=== PATIENT | male | born 1955 | race Caucasian/White ===

== ENCOUNTER 2019-04-05 05:37 | Outpatient (CLI) | payer BC ==
[~2019-04-05] VITALS: Ht 190.5 cm; Wt 99.8 kg
[2019-04-05] MEDS ORDERED: CALC-823 PO (10:29)
[2019-04-05] MEDS ORDERED: PRAV40TA2 PO (10:29)
[2019-04-05] MEDS ORDERED: TAMS0.4C98 PO (10:29)
[2019-04-05] MEDS ORDERED: OMEP40CA36 PO (10:29)
[2019-04-05] MEDS ORDERED: NIVO240V IV (10:29)
[2019-04-05] MEDS ORDERED: METO-395 PO (10:29)
[2019-04-05] MEDS ORDERED: DENO120V SQ (10:29)
== END 2019-04-05 10:34 | disposition home or self-care (01) ==
LOC: PREOP 05:37 → EDUNIT# 09:30 → PREOP 10:34
PROVIDERS: ATTEND Otolaryngology Otolaryngology/Facial Plastic Surgery
DX: Z01.818 Encounter for other preprocedural examination (principal)

== ENCOUNTER 2019-04-08 07:34 | Day surgery (SDC) | payer BC ==
[2019-04-08] VITALS (11 sets, daily range): BP systolic 135–170; BP diastolic 81–97
[~2019-04-08] VITALS: Ht 190.5 cm; Wt 99.8 kg
[~2019-04-08 07:34] MED LIST: CALC-823 PO; DENO120V SQ; METO-395 PO; NIVO240V IV; OMEP40CA36 PO; PRAV40TA2 PO; TAMS0.4C98 PO
[2019-04-08] MEDS ORDERED: AMPICILLIN/SULBACTAM INJECTION 1.5 GM in NS (IVPB) 100 ML IV ONE (07:45)
[2019-04-08] MEDS ORDERED: CATHETER FLUSH 10 ML SYR IV PRN (08:00)
[2019-04-08] MEDS ORDERED: COCAINE HCL 4% 2 ML SYR ONE (08:00)
[2019-04-08] MEDS ORDERED: LIDOCAINE/EPI 1%-1:100,000 (XYLOCAINE) 20ML ONE (08:01)
[2019-04-08] MEDS ORDERED: BSS 15 ML ONE (08:01)
[2019-04-08] MEDS ORDERED: PHENYLEPHRINE 0.5% NASAL SPR (NEO-SYNEPHRINE) REG ONE (08:01)
[2019-04-08] MEDS: LACTATED RINGERS 1,000 ML IV PRN ×2 (08:20→11:46)
--- NOTE | 2019-04-08 08:59 | Progress Note-Pre Operative ---
Pre-Operative Progress Note H&P Reviewed The H&P was reviewed, patient examined and no changes noted. Date Seen by Provider: April 08, 2019 Time Seen by Provider: 08:45 Date H&P Reviewed: April 08, 2019 Time H&P Reviewed: 08:45 Pre-Operative Diagnosis: Bilat Chroinc Sinusitis, DEviated Nasal Septum, Bialt Hyper of Inf turbs OSCAR ACOSTA MD April 08, 2019 08:59
[2019-04-08] MEDS ORDERED: MIDAZOLAM 2 MG/2 ML (VERSED) VIAL ONE (09:16)
[2019-04-08] MEDS ORDERED: fentaNYL INJECTION 100 MCG/2 ML AMP ONE (09:16)
[2019-04-08] MEDS ORDERED: proPOfol 200 MG/20 ML (DIPRIVAN) VIAL IV ONE (09:16)
[2019-04-08] MEDS ORDERED: SEVOFLURANE (ULTANE) 15 ML INHAL SOLN ONE ×7 (09:16→11:22)
[2019-04-08] MEDS ORDERED: LIDOCAINE PF 2% 5 ML (XYLOCAINE) VIAL ONE (09:16)
[2019-04-08] MEDS ORDERED: ROCURONIUM 10 MG/ML 5 ML SYRINGE IV ONE (09:16)
--- OUTSIDE RECORDS SUMMARY | 2019-04-08 09:37 | XMS REPORT | CCD ---
Author Author KESHAWN ANDRADE Organization Unknown Address [address] [facility] [address] [place] [address] Care Team Providers Care Kitchen Steward Name Role Phone CLINTON KELLY, OSCAR Palmers Allergies Allergy Code Allergy Type Reaction Status No Known Drug Allergies 0 Drug allergy Active Active Medications Unknown or Not Available. Problems Unknown or Not Available. Procedures Procedure Code Procedure Type Date Excision of Stomach, Via Natural or Artificial Opening Endoscopic, Diagnos [id number] ICD-10 PCS 08/29/2016 PATHOLOGY ORDER [id number] SNOMED CT 08/29/2016 Results Unknown or Not Available. Function Status Unknown or Not Available. History of Immunizations Unknown or Not Available. Plan of Treatment Unknown or Not Available. Social History Smoking Status Code Start Date End Date Never smoker [id number] Vital Signs Unknown or Not Available. Function Status Unknown or Not Available. Goals Unknown or Not Available. ASSESSMENTS Unknown or Not Available. Health Concerns Section Unknown or Not Available.
--- OUTSIDE RECORDS SUMMARY | 2019-04-08 09:37 | XMS REPORT | CCD ---
Author Author TATA RAUSCH Unknown Address [address] [facility] [address] [place] [address] Care Team Providers Care Floor Tiling Professional Name Role Phone CLINTON KELLY, OSCAR Cote Allergies Allergy Code Allergy Type Reaction Status No Known Drug Allergies 0 Drug allergy Active Active Medications No Active Medications Problems Unknown or Not Available. Procedures Procedure Code Procedure Type Date Insertion of tunneled centrally inserted [place] [address] CPT 12/10/2016 FLUOROSCOPY < [id number] 12/10/2016 Results Unknown or Not Available. Function Status Unknown or Not Available. History of Immunizations Immunization Code Date Tdap 115 08/04/2014 Plan of Treatment Unknown or Not Available. Social History Smoking Status Code Start Date End Date Never smoker [id number] Vital Signs Vital Sign Value Unit Date/Time Recent/Initial? Weight Measured 230 [lb_av] 12/09/2016 15:25 Initial VS Height 75 [in_i] 12/09/2016 15:25 Initial VS BMI (Body Mass Index) 28.75 kg/m2 12/09/2016 15:25 Initial VS BSA (Body Surface Area) 2.35 m2 12/09/2016 15:25 Initial VS Respiratory Rate 15 /min 12/10/2016 07:48 Initial VS Heart Rate 98 /min 12/10/2016 07:48 Initial VS O2 % BldC Oximetry 94 % 12/10/2016 07:48 Initial VS BP Systolic 122 mm[Hg] 12/10/2016 07:54 Initial VS BP Diastolic 65 mm[Hg] 12/10/2016 07:54 Initial VS BP Systolic 125 mm[Hg] 12/10/2016 08:14 Most Recent VS BP Diastolic 67 mm[Hg] 12/10/2016 08:14 Most Recent VS Respiratory Rate 10 /min 12/10/2016 08:15 Most Recent VS Heart Rate 75 /min 12/10/2016 08:15 Most Recent VS O2 % BldC Oximetry 98 % 12/10/2016 08:15 Most Recent VS Function Status Unknown or Not Available. Goals Unknown or Not Available. ASSESSMENTS Unknown or Not Available. Health Concerns Section Unknown or Not Available.
--- OUTSIDE RECORDS SUMMARY | 2019-04-08 09:38 | XMS REPORT | CCD ---
Author Author TATA RAUSCH Unknown Address [address] [facility] [address] [place] [address] Care Team Providers Care Re Etcher Name Role Phone ROGERS MAHAN JONO RESTREPO MD Prisualanna 0 B., ANJU NASST S., MADELAINE NASST K., MADELAINE D NASST B., ZHEN NASST W., JEREL NASST M., BERNARDINO NASST F., ARY NASST B., ZHEN NASST W., KARSTEN NASST R., SUNDAR NASST A., MADELAINE Velez NASST K., SHAHANA NASST S., REX Gautam NASST R., LEBRON NASST Allergies Allergy Code Allergy Type Reaction Status No Known Drug Allergies 0 Drug allergy Active Active Medications Medication Code Dose Units Frequency Route Modification Start Date/Time Aspirin 81MG Oral Tablet, Enteric Coated 456398 81 MILLIGRAMS DAILY ORAL 04/26/2017 08:50 Prescription Detail 81 MILLIGRAMS ORAL DAILY Calcium 600 600MG Oral Tablet [id number] 600 MILLIGRAMS DAILY ORAL 04/26/2017 08:50 Prescription Detail 600 MILLIGRAMS ORAL DAILY Dexamethasone 2MG Oral Tablet 523400 2 MILLIGRAMS DAILY ORAL 04/26/2017 08:50 Prescription Detail 1 tablet ORAL DAILY x 7 days then0.5 tablet oral daily x 7 days then d/c Gabapentin 600MG Oral Tablet 971845 600 MILLIGRAMS THREE TIMES A DAY ORAL 04/26/2017 08:50 Prescription Detail 600 MILLIGRAMS ORAL THREE TIMES A DAY Metoprolol Succinate 50MG Oral Tablet, Extended Release [id number] 50 MILLIGRAMS TWO TIMES A DAY ORAL 2016 08:50 Prescription Detail 50 MILLIGRAMS ORAL TWO TIMES A DAY Morphine Sulfate 15MG Oral Tablet, Extended Release [id number] 15 MILLIGRAMS TWO TIMES A DAY ORAL 04/26/2017 08 :50 Prescription Detail 15 MILLIGRAMS ORAL TWO TIMES A DAY Omeprazole 40MG Oral Capsule, Delayed Release [id number] 40 MILLIGRAMS DAILY ORAL 04/26/2017 08:50 Prescription Detail 40 MILLIGRAMS ORAL DAILY Opdivo 10MG/1ML Intravenous Solution [id number] 1 EACH EVERY TWO WEEKS INTRAVENOUS 04/26/2017 08:50 Prescription Detail 1 EACH INTRAVENOUS EVERY TWO WEEKS Percocet 10MG-325MG Oral Tablet 6190413 1 TABLET EVERY 4 HOURS ORAL 04/26/2017 08:50 Prescription Detail 1 TABLET ORAL EVERY 4 HOURS Pravastatin Sodium 40MG Oral Tablet 919324 40 MILLIGRAMS DAILY ORAL 04/26/2017 08:50 Prescription Detail 40 MILLIGRAMS ORAL DAILY Stool Softener 100MG Oral Capsule, Liquid Filled 4159747 100 MILLIGRAMS TWO TIMES A DAY ORAL 04/26/2017 08: 50 Prescription Detail 100 MILLIGRAMS ORAL TWO TIMES A DAY Tamsulosin HCl 0.4MG Oral Capsule 809800 0.4 MILLIGRAMS DAILY ORAL 04/26/2017 08:50 Prescription Detail 0.4 MILLIGRAMS ORAL DAILY Xarelto 20MG Oral Tablet 1782796 20 MILLIGRAMS DAILY ORAL 04/26/2017 08:50 Prescription Detail 20 MILLIGRAMS ORAL DAILY Augmentin 875MG-125MG Oral Tablet 208692 1 TABLET DAILY BY MOUTH 04/26/2017 08:49 Prescription Detail 1 TABLET BY MOUTH DAILY Problems Unknown or Not Available. Procedures Procedure Code Procedure Type Date CTA CHEST W/WO CONTRAST 207662284 SNOMED CT 04/23/2017 CT HEAD W/O CONTRAST 101840970 SNOMED CT 04/23/2017 CX CHEST [address] 04/23/[address] 04/26/[address] 04/26/2017 BASIC METABOLIC PANEL 692247012 SNOMED CT 04/26/2017 CBC W/ AUTO DIFF (RFLX MAN DIFF IF IND) 9446579 SNOMED CT 04/26/2017 CULTURE BLOOD 38022370 SNOMED [address] 04/24/[address] 04/25/2017 T4 FREE [address]69 SNOM[address] 04/25/[address] 04/25/2017 LIPID PANEL 10420636 SNOMED [address] 04/25/[address] 04/25/[address] 04/25/2017 COMPREHENSIVE METABOLIC PANEL 500837404 SNOMED CT 2016 CBC W/ MANUAL DIFF 39461238 SNOMED CT 04/25/2017 UA ROUTINE C&S IF IND 565472421 SNOMED CT 04/23/[address] 04/23/[address] 04/23/[address] 04/23/[address] 04/23/2017 D DIMER QUANT 643132316 SNOMED CT 04/23/2017 TROPONIN-I ADV 507675700 SNOMED CT 04/23/2017 COMPREHENSIVE METABOLIC PANEL 408647596 SNOMED CT 2016 CBC W/ AUTO DIFF (RFLX MAN DIFF IF IND) 9800571 SNOMED CT 04/23/2017 ABG DRAW 95729032 SNOMED CT 04/23/2017 ^CBC W/ MANUAL DIFF 41574170 SNOMED CT 04/26/2017 ^UA AUTO DIPSTICK ONLY 764580793 SNOMED CT 04/23/2017 ^CBC W/AUTO DIFF 3504180 SNOMED CT 04/23/2017 BAN AERO ECLIPSE TREATMENT 75263879 SNOMED CT 04/26/2017 BAN AERO ECLIPSE TREATMENT 18146869 SNOMED CT 04/25/2017 BAN AERO ECLIPSE TREATMENT 96245324 SNOMED CT 04/25/2017 PULSE OX CONTINUOUS 557696917 SNOMED CT 04/24/2017 PULSE OX CONTINUOUS 334202019 SNOMED CT 04/24/2017 BAN AERO ECLIPSE TREATMENT 68175131 SNOMED CT 04/24/2017 BAN AERO ECLIPSE TREATMENT 10795226 SNOMED CT 04/24/2017 BAN AERO ECLIPSE TREATMENT 38667756 SNOMED CT 04/24/2017 BAN AERO ECLIPSE TREATMENT 25608395 SNOMED CT 04/24/2017 BAN AERO ECLIPSE TREATMENT 16173240 SNOMED CT 04/23/2017 Results AMYLASE - Collect Date/Time: 04/23/2017 22:10 Test Name Code Test Result Test Units Test Ref Range AMYLASE 1798-8 43 IU/L L=25 H=125 BASIC METABOLIC PANEL - Collect Date/Time: 04/26/2017 06:15 Test Name Code Test Result Test Units Test Ref Range GLUCOSE 2345-7 109 MG/DL L=70 H=100 SODIUM 2951-2 138 MEQ/L L=135 H=148 POTASSIUM 2823-3 4.8 MEQ/L L=3.5 H=5.3 CHLORIDE 2075-0 107 MEQ/L L=96 H=110 CO2 2028-9 22 MEQ/L L=22 H=29 BUN 3094-0 26 MG/DL L=8 H=22 CREATININE 2160-0 1.2 MG/DL L=0.6 H=1.6 CALCIUM 94935-9 8.5 MG/DL L=8.2 H=10.6 AGE 22[birth year]-3 61 yrs GFR NonAA 03217-9 62 [place]FR [place] [address]-5 75 eGFR 01724-2 >60 N/A eGFR AA* 89642-3 >60 N/A COMPREHENSIVE METABOLIC PANEL - Collect Date/Time: 04/25/2017 06:00 Test Name Code Test Result Test Units Test Ref Range GLUCOSE 2345-7 132 MG/DL L=70 H=100 SODIUM 2951-2 136 MEQ/L L=135 H=148 POTASSIUM 2823-3 4.6 MEQ/L L=3.5 H=5.3 CHLORIDE 2075-0 106 MEQ/L L=96 H=110 CO2 2028-9 23 MEQ/L L=22 H=29 BUN 3094-0 24 MG/DL L=8 H=22 CREATININE 2160-0 1.4 MG/DL L=0.6 H=1.6 SGOT/AST 1920-8 19 IU/L L=10 H=40 SGPT/ALT 1742-6 19 IU/L L=8 H=54 ALK PHOS 6768-6 88 IU/L L=35 H=115 TOTAL PROTEIN 2885-2 6.3 G/DL L=5.5 H=8.5 ALBUMIN 1751-7 2.9 G/DL L=3.1 H=5.4 TOTAL BILI 1975-2 0.2 MG/DL L=0.0 H=1.5 CALCIUM 78859-2 8.7 MG/DL L=8.2 H=10.6 AGE [address]28-3 61 yrs GFR NonAA 45108-7 52 [place] [address]-4 63 eGFR 11581-5 52 mL/min/1.7 eGFR AA* 79827-6 >60 N/A COMPREHENSIVE METABOLIC PANEL - Collect Date/Time: 04/23/2017 22:10 Test Name Code Test Result Test Units Test Ref Range GLUCOSE 2345-7 116 MG/DL L=70 H=100 SODIUM 2951-2 135 MEQ/L L=135 H=148 POTASSIUM 2823-3 4.9 MEQ/L L=3.5 H=5.3 CHLORIDE 2075-0 103 MEQ/L L=96 H=110 CO2 2028-9 21 MEQ/L L=22 H=29 BUN 3094-0 26 MG/DL L=8 H=22 CREATININE 2160-0 1.3 MG/DL L=0.6 H=1.6 SGOT/AST 1920-8 21 IU/L L=10 H=40 SGPT/ALT 1742-6 22 IU/L L=8 H=54 ALK PHOS 6768-6 115 IU/L L=35 H=115 TOTAL PROTEIN 2885-2 7.5 G/DL L=5.5 H=8.5 ALBUMIN 1751-7 3.4 G/DL L=3.1 H=5.4 TOTAL BILI 1975-2 0.6 MG/DL L=0.0 H=1.5 CALCIUM 87282-8 9.6 MG/DL L=8.2 H=10.6 AGE 61 yrs GFR NonAA 57 GFR AA 69 eGFR 57 mL/min/1.7 eGFR AA* >60 N/A CPK - Collect Date/Time: 04/25/2017 06:00 Test Name Code Test Result Test Units Test Ref Range CPK 2157-6 45 IU/L L=0 H=235 LIPASE - Collect Date/Time: 04/23/2017 22:10 Test Name Code Test Result Test Units Test Ref Range LIPASE 3040-3 9 U/L L=8 H=78 LIPID PANEL - Collect Date/Time: 04/25/2017 06:00 Test Name Code Test Result Test Units Test Ref Range TRIGLYCERIDES 3043-7 72 MG/DL L=0 H=135 CHOLESTEROL 2093-3 121 MG/DL L=0 H=199 HDL 2085-9 32 MG/DL L=27 H=67 TOT CHOL/HDL 01280-6 3.8 L=0.0 H=5.0 LDL (CALC) 86570-2 75 MG/DL L=0 H=129 MAGNESIUM - Collect Date/Time: 04/26/2017 06:15 Test Name Code Test Result Test Units Test Ref Range MAGNESIUM 13874-9 2.0 MG/DL L=1.7 H=2.8 MAGNESIUM - Collect Date/Time: 04/25/2017 06:00 Test Name Code Test Result Test Units Test Ref Range MAGNESIUM 75857-3 2.0 MG/DL L=1.7 H=2.8 PHOSPHORUS - Collect Date/Time: 04/26/2017 06:15 Test Name Code Test Result Test Units Test Ref Range PHOSPHORUS 2777-1 2.6 MG/DL L=2.5 H=4.5 PHOSPHORUS - Collect Date/Time: 04/25/2017 06:00 Test Name Code Test Result Test Units Test Ref Range PHOSPHORUS 2777-1 3.1 MG/DL L=2.5 H=4.5 CBC W/ AUTO DIFF (RFLX MAN DIFF IF IND) - Collect Date/Time: 04/26/2017 06:15 Test Name Code Test Result Test Units Test Ref Range WBC 24755-1 11.5 TH/CMM L=4.5 H=10.8 RBC 789-8 3.53 ML/CMM L=4.70 H=6.10 HGB 718-7 7.8 G/DL L=14.0 H=18.0 HCT 4544-3 27.4 % L=42.0 H=52.0 MCV 75120-4 78 FL L=81 H=99 MCH 67738-3 22.1 PG L=27.0 H=33.0 MCHC 13344-7 28.5 G/DL L=31.0 H=36[place] [address]-2 50 FL L=36 H=50 [place] [address]-9 17.6 % L=0.0 H=14.8 MPV 65792-9 9.5 FL L=9.3 H=12.5 PLT 777-3 385 TH/CMM L=130 H=440 NRBC# 85208-7 0.00 TH/CMM L=0.00 H=0.00 NRBC% 09016-6 0.0 /100WBC L=0.0 H=2.0 %NEUT 73257-1 85.7 % %LYMP 21453-1 5.9 % %MONO 14139-6 7.7 % %EOS 58580-1 0.2 % %BASO 09998-3 0.2 % #NEUT 72678-8 9.89 TH/CMM L=2.10 H=8.20 #LYMP 11769-9 0.68 TH/CMM L=0.90 H=5.20 #MONO 31348-3 0.89 TH/CMM L=0.16 H=1.00 #EOS 71815-3 0.02 TH/CMM L=0.00 H=0.80 #BASO 39645-5 0.02 TH/CMM L=0.00 H=0.20 SEGS 88324-0 90 % LYMPHS 04459-0 7 % MONOS 49367-3 3 % MANUAL DIFF 50107-9 SEE BELOW N/A CBC W/ AUTO DIFF (RFLX MAN DIFF IF IND) - Collect Date/Time: 04/23/2017 22:10 Test Name Code Test Result Test Units Test Ref Range WBC 38655-4 9.4 TH/CMM L=4.5 H=10.8 RBC 789-8 4.08 ML/CMM L=4.70 H=6.10 HGB 718-7 9.2 G/DL L=14.0 H=18.0 HCT 4544-3 31.1 % L=42.0 H=52.0 MCV 76 FL L=81 H=99 MCH 22.5 PG L=27.0 H=33.0 MCHC 29.6 G/DL L=31.0 H=36.0 RDW SD 50 FL L=36 H=50 RDW CV 18.0 % L=0.0 H=14.8 MPV 9.0 FL L=9.3 H=12.5 PLT 777-3 366 TH/CMM L=130 H=440 NRBC# 0.00 TH/CMM L=0.00 H=0.00 NRBC% 0.0 /100WBC L=0.0 H=2.0 %NEUT 76.9 % %LYMP 8.2 % %MONO 12.2 % %EOS 1.9 % %BASO 0.4 % #NEUT 7.19 TH/CMM L=2.10 H=8.20 #LYMP 0.77 TH/CMM L=0.90 H=5.20 #MONO 1.14 TH/CMM L=0.16 H=1.00 #EOS 0.18 TH/CMM L=0.00 H=0.80 #BASO 0.04 TH/CMM L=0.00 H=0.20 MANUAL DIFF NOT IND N/A CBC W/ MANUAL DIFF - Collect Date/Time: 04/25/2017 06:00 Test Name Code Test Result Test Units Test Ref Range WBC 71440-1 11.0 TH/CMM L=4.5 H=10.8 RBC 789-8 3.32 ML/CMM L=4.70 H=6.10 HGB 718-7 7.5 G/DL L=14.0 H=18.0 HCT 4544-3 25.6 % L=42.0 H=52.0 MCV 45132-0 77 FL L=81 H=99 MCH 57524-2 22.6 PG L=27.0 H=33.0 MCHC 17262-1 29.3 G/DL L=31.0 H=36[place] [address]-5 49 FL L=36 H=50 [place] [address]-0 17.6 % L=0.0 H=14.8 MPV 75393-1 9.2 FL L=9.3 H=12.5 PLT 777-3 326 TH/CMM L=130 H=440 NRBC# 69026-7 0.00 TH/CMM L=0.00 H=0.00 NRBC% 56964-9 0.0 /100WBC L=0.0 H=2.0 %NEUT 32418-6 85.0 % %LYMP 73081-1 5.5 % %MONO 04755-9 8.4 % %EOS 22755-9 0.4 % %BASO 56608-8 0.1 % #NEUT 57882-8 9.35 TH/CMM L=2.10 H=8.20 #LYMP 05127-2 0.61 TH/CMM L=0.90 H=5.20 #MONO 75799-1 0.92 TH/CMM L=0.16 H=1.00 #EOS 26878-2 0.04 TH/CMM L=0.00 H=0.80 #BASO 79663-0 0.01 TH/CMM L=0.00 H=0.20 SEGS 71136-7 89 % BANDS 07970-4 3 % LYMPHS 09189-4 4 % MONOS 87776-0 4 % MICRO 97086-8 2+ N/A POIK 62582-6 1+ N/A D DIMER QUANT - Collect Date/Time: 04/23/2017 22:10 Test Name Code Test Result Test Units Test Ref Range D-DIMER QUANT 47631-4 1.29 MG/L FEU L=0.00 H= 0.50 PT/PTT - Collect Date/Time: 04/23/2017 22:10 Test Name Code Test Result Test Units Test Ref Range PROTIME 5964-2 12.2 SEC L=9.9 H=11.9 INR 85558-0 1.1 PTT 3173-2 32.8 SEC L=22.2 H=37.2 UA ROUTINE C&S IF IND - Collect Date/Time: 04/24/2017 00:15 Test Name Code Test Result Test Units Test Ref Range COLOR YELLOW N/A NL: YELLOW APPEARANCE CLEAR N/A NL: CLEAR SPEC GRAV 1.020 N/A NL: 1.002 - 1.022 pH 6.5 N/A NL: 5 - 9 PROTEIN NEGATIVE N/A NL: NEGATIVE mg/dl GLUCOSE NEGATIVE N/A NL: NEGATIVE mg/dl KETONE 40 N/A NL: NEGATIVE mg/dl BILIRUBIN NEGATIVE N/A NL: NEGATIVE BLOOD NEGATIVE N/A NL: NEGATIVE NITRITE NEGATIVE N/A NL: NEGATIVE LEUK SCREEN NEGATIVE N/A NL: NEGATIVE MICRO INDICATED? NOT INDICATED N/A TROPONIN-I ADV - Collect Date/Time: 04/23/2017 22:10 Test Name Code Test Result Test Units [place] [address]-8 <0.04 ng/mL L=0.04 H= 0.40 T4 FREE - Collect Date/Time: 04/25/2017 06:00 Test Name Code Test Result Test Units Test Ref Range FREE T4 3024-7 0.78 NG/DL L=0.71 H=1.85 TSH - Collect Date/Time: 04/25/2017 06:00 Test Name Code Test Result Test Units Test Ref Range TSH 71453-6 0.62 mIU/L L=0.35 H=4.94 ABG - Collect Date/Time: 04/23/2017 22:30 Test Name Code Test Result Test Units Test Ref Range PH 7.57 L=7.35 H=7.45 PCO2 21 mmHG L=35 H=45 PO2 79 mmHG L=80 H=100 HCO3 19 mmol/L L=22 H=28 TCO2 17 mmol/L L=18 H=31 O2SAT 98 % L=80 H=100 SITE L RAD N/A FIO2 ROOM AIR N/A BE -1.7 N/A L=-2.5 H=2.5 LACTIC ACID - Collect Date/Time: 04/23/2017 22:10 Test Name Code Test Result Test Units Test Ref Range LACTIC ACID 2524-7 1.3 mmol/L L=0.5 H=1.6 Function Status Unknown or Not Available. History of Immunizations Immunization Code Date Tdap 115 08/04/2014 influenza, injectable, quadrivalent 158 10/06/2017 Plan of Treatment Unknown or Not Available. Social History Smoking Status Code Start Date End Date Never smoker [id number] Vital Signs Vital Sign Value Unit Date/Time Recent/Initial? BP Systolic 135 mm[Hg] 04/24/2017 02:20 Initial VS BP Diastolic 70 mm[Hg] 04/24/2017 02:20 Initial VS Respiratory Rate 20 /min 04/24/2017 02:20 Initial VS Heart Rate 101 /min 04/24/2017 02:20 Initial VS O2 % BldC Oximetry 97 % 04/24/2017 02:20 Initial VS Body Temperature 99.9 [degF] 04/24/2017 02:20 Initial VS BMI (Body Mass Index) 29.27 kg/m2 04/24/2017 02:29 Initial VS Weight Measured 234.5 [lb_av] 04/24/2017 02:29 Initial VS Height 75 [in_i] 04/24/2017 02:29 Initial VS BSA (Body Surface Area) 2.37 m2 04/24/2017 02:29 Initial VS BMI (Body Mass Index) 29.27 kg/m2 04/24/2017 02:30 Most Recent VS Weight Measured 234.2 [lb_av] 04/24/2017 02:30 Most Recent VS Height 75 [in_i] 04/24/2017 02:30 Most Recent VS BSA (Body Surface Area) 2.37 m2 04/24/2017 02:30 Most Recent VS BP Systolic 115 mm[Hg] 04/26/2017 07:37 Most Recent VS BP Diastolic 60 mm[Hg] 04/26/2017 07:37 Most Recent VS Respiratory Rate 20 /min 04/26/2017 07:37 Most Recent VS Heart Rate 76 /min 04/26/2017 07:37 Most Recent VS O2 % BldC Oximetry 99 % 04/26/2017 07:37 Most Recent VS Body Temperature 97.9 [degF] 04/26/2017 07:37 Most Recent VS Function Status Unknown or Not Available. Goals Unknown or Not Available. ASSESSMENTS Unknown or Not Available. Health Concerns Section Unknown or Not Available.
--- OUTSIDE RECORDS SUMMARY | 2019-04-08 09:38 | XMS REPORT | CCD ---
Author Author KESHWAN ANDRADE Organization Unknown Address [address] [place] [address] Care Team Providers Care Adjunct Professor Of English Name Role Phone VASQUEZTIAGONAYELI DO Attphys VASQUEZTIAGONAYELI DO Prisurg Allergies Allergy Code Allergy Type Reaction Status No Known Drug Allergies 0 Drug allergy Active Active Medications Unknown or Not Available. Problems Unknown or Not Available. Procedures Procedure Code Procedure Type Date CT CHEST W/CONTRAST 14536715 SNOMED CT 11/20/2016 D DIMER QUANT 903472800 SNOMED CT 11/20/2016 COMPREHENSIVE METABOLIC PANEL 701900749 SNOMED CT 2015 CBC W/ AUTO DIFF (RFLX MAN DIFF IF IND) 4372047 SNOMED CT 11/20/2016 ^CBC W/AUTO DIFF 3652420 SNOMED CT 11/20/2016 LOCM 300-349 MG/ML, PER ML 268244796 OMED CT 11/20/2016 Results COMPREHENSIVE METABOLIC PANEL - Collect Date/Time: 11/20/2016 10:20 Test Name Code Test Result Test Units Test Ref Range GLUCOSE 2345-7 125 MG/DL L=70 H=100 SODIUM 2951-2 139 MEQ/L L=135 H=148 POTASSIUM 2823-3 4.1 MEQ/L L=3.5 H=5.3 CHLORIDE 2075-0 106 MEQ/L L=96 H=110 CO2 2028-9 23 MEQ/L L=22 H=29 BUN 3094-0 19 MG/DL L=8 H=22 CREATININE 2160-0 1.5 MG/DL L=0.6 H=1.6 SGOT/AST 1920-8 17 IU/L L=10 H=40 SGPT/ALT 1742-6 23 IU/L L=8 H=54 ALK PHOS 6768-6 108 IU/L L=35 H=115 TOTAL PROTEIN 2885-2 7.5 G/DL L=5.5 H=8.5 ALBUMIN 1751-7 3.8 G/DL L=3.1 H=5.4 TOTAL BILI 1975-2 0.3 MG/DL L=0.0 H=1.5 CALCIUM 78745-5 9.5 MG/DL L=8.2 H=10.6 AGE 61 yrs GFR NonAA 48 GFR AA 58 eGFR 48 mL/min/1.7 eGFR AA* 58 mL/min/1.7 CBC W/ AUTO DIFF (RFLX MAN DIFF IF IND) - Collect Date/Time: 11/20/2016 10:20 Test Name Code Test Result Test Units Test Ref Range WBC 22639-8 7.2 TH/CMM L=4.5 H=10.8 RBC 789-8 4.90 ML/CMM L=4.70 H=6.10 HGB 718-7 10.7 G/DL L=14.0 H=18.0 HCT 4544-3 37.2 % L=42.0 H=52.0 MCV 76 FL L=81 H=99 MCH 21.8 PG L=27.0 H=33.0 MCHC 28.8 G/DL L=31.0 H=36.0 RDW SD 54 FL L=36 H=50 RDW CV 20.0 % L=0.0 H=14.8 MPV 8.9 FL L=9.3 H=12.5 PLT 777-3 304 TH/CMM L=130 H=440 NRBC# 0.00 TH/CMM L=0.00 H=0.00 NRBC% 0.0 /100WBC L=0.0 H=2.0 %NEUT 65.4 % %LYMP 18.9 % %MONO 8.3 % %EOS 6.2 % %BASO 0.8 % #NEUT 4.71 TH/CMM L=2.10 H=8.20 #LYMP 1.36 TH/CMM L=0.90 H=5.20 #MONO 0.60 TH/CMM L=0.16 H=1.00 #EOS 0.45 TH/CMM L=0.00 H=0.80 #BASO 0.06 TH/CMM L=0.00 H=0.20 MANUAL DIFF NOT IND N/A D DIMER QUANT - Collect Date/Time: 11/20/2016 10:20 Test Name Code Test Result Test Units Test Ref Range D-DIMER QUANT 67752-1 6.87 MG/L FEU L=0.00 H= 0.50 Function Status Unknown or Not Available. History of Immunizations Immunization Code Date Tdap 115 08/04/2014 Plan of Treatment Unknown or Not Available. Social History Smoking Status Code Start Date End Date Never smoker [id number] Vital Signs Unknown or Not Available. Function Status Unknown or Not Available. Goals Unknown or Not Available. ASSESSMENTS Unknown or Not Available. Health Concerns Section Unknown or Not Available.
--- OUTSIDE RECORDS SUMMARY | 2019-04-08 09:38 | XMS REPORT | CCD ---
Author Author TATA RAUSCH Unknown Address [address] [facility] [address] [place] [address] Care Team Providers Care Canoe Builder Name Role Phone LADAN KELLY, OSCAR Jhaveri Attphydevan OSCAR PICKERING MD Allergies Allergy Code Allergy Type Reaction Status No Known Drug Allergies 0 Drug allergy Active Active Medications Medication Code Dose Units Frequency Route Modification Start Date/Time Aspirin 81MG Oral Tablet, Enteric Coated [id number] 81 MILLIGRAMS DAILY ORAL 04/26/2017 08:50 Prescription Detail 81 MILLIGRAMS ORAL DAILY Calcium 600 600MG Oral Tablet [id number] 600 MILLIGRAMS DAILY ORAL 04/26/2017 08:50 Prescription Detail 600 MILLIGRAMS ORAL DAILY Dexamethasone 2MG Oral Tablet [id number] 2 MILLIGRAMS DAILY ORAL 04/26/2017 08:50 Prescription Detail 1 tablet ORAL DAILY x 7 days then0.5 tablet oral daily x 7 days then d/c Gabapentin 600MG Oral Tablet [id number] 600 MILLIGRAMS THREE TIMES A DAY ORAL 04/26/2017 08:50 Prescription Detail 600 MILLIGRAMS ORAL THREE TIMES A DAY Metoprolol Succinate 50MG Oral Tablet, Extended Release [id number] 50 MILLIGRAMS TWO TIMES A DAY ORAL 2016 08:50 Prescription Detail 50 MILLIGRAMS ORAL TWO TIMES A DAY Morphine Sulfate 15MG Oral Tablet, Extended Release [id number] 15 MILLIGRAMS TWO TIMES A DAY ORAL 04/26/2017 08 :50 Prescription Detail 15 MILLIGRAMS ORAL TWO TIMES A DAY Omeprazole 40MG Oral Capsule, Delayed Release [id number] 40 MILLIGRAMS DAILY ORAL 04/26/2017 08:50 Prescription Detail 40 MILLIGRAMS ORAL DAILY Opdivo 10MG/1ML Intravenous Solution [id number] 1 EACH EVERY TWO WEEKS INTRAVENOUS 04/26/2017 08:50 Prescription Detail 1 EACH INTRAVENOUS EVERY TWO WEEKS Percocet 10MG-325MG Oral Tablet [id number] 1 TABLET EVERY 4 HOURS ORAL 04/26/2017 08:50 Prescription Detail 1 TABLET ORAL EVERY 4 HOURS Pravastatin Sodium 40MG Oral Tablet [id number] 40 MILLIGRAMS DAILY ORAL 04/26/2017 08:50 Prescription Detail 40 MILLIGRAMS ORAL DAILY Stool Softener 100MG Oral Capsule, Liquid Filled 6218015 100 MILLIGRAMS TWO TIMES A DAY ORAL 04/26/2017 08: 50 Prescription Detail 100 MILLIGRAMS ORAL TWO TIMES A DAY Tamsulosin HCl 0.4MG Oral Capsule 628357 0.4 MILLIGRAMS DAILY ORAL 04/26/2017 08:50 Prescription Detail 0.4 MILLIGRAMS ORAL DAILY Xarelto 20MG Oral Tablet [id number] 20 MILLIGRAMS DAILY ORAL 04/26/2017 08:50 Prescription Detail 20 MILLIGRAMS ORAL DAILY Augmentin 875MG-125MG Oral Tablet 549790 1 TABLET DAILY BY MOUTH 04/26/2017 08:49 Prescription Detail 1 TABLET BY MOUTH DAILY Problems Unknown or Not Available. Procedures Unknown or Not Available. Results Unknown or Not Available. Function Status Unknown or Not Available. History of Immunizations Immunization Code Date Tdap 115 08/04/2014 Plan of Treatment Unknown or Not Available. Social History Smoking Status Code Start Date End Date Never smoker [id number] Vital Signs Unknown or Not Available. Function Status Unknown or Not Available. Goals Unknown or Not Available. ASSESSMENTS Unknown or Not Available. Health Concerns Section Unknown or Not Available.
--- OUTSIDE RECORDS SUMMARY | 2019-04-08 09:38 | XMS REPORT | CCD ---
Author Author TATA RAUSCH Unknown Address [address] [place] [address] Care Team Providers Care Motion Study Engineer Name Role Phone CLINTON KELLY, OSCAR Cote Allergies Allergy Code Allergy Type Reaction Status No Known Drug Allergies 0 Drug allergy Active Active Medications No Active Medications Problems Unknown or Not Available. Procedures Procedure Code Procedure Type Date Insertion of tunneled [place] [address] CPT 12/10/2016 FLUOROSCOPY < [id number] 12/10/2016 Results Unknown or Not Available. Function Status Unknown or Not Available. History of Immunizations Immunization Code Date Tdap 115 08/04/2014 Plan of Treatment Unknown or Not Available. Social History Smoking Status Code Start Date End Date Never smoker [id number] Vital Signs Vital Sign Value Unit Date/Time [...]
--- OUTSIDE RECORDS SUMMARY | 2019-04-08 09:39 | XMS REPORT ---
Author Author MARIANA HARLEY Organization [facility] Address [address] [place], [place] [id number] Care Team Providers Care Instructional Design Technologist Name Role Phone MARIANA HARLEY PCP MARIANA HARLEY PreferredProvider Allergies and Adverse Reactions Name Reaction Notes No known history of drug allergy Plan of Treatment Planned Activity Comments Planned Date Planned Time Plan/Goal CT MAXILLOFACIAL W/O CONTRAST 01/18/2019 12:00 AM Medications Active Name Start Date Estimated Completion Date SIG Comments pravastatin 40 mg oral tablet 10/04/2016 TAKE ONE TABLET BY MOUTH ONCE DAILY AT BEDTIME metoprolol tartrate 50 mg oral tablet take 1 tablet (50 mg) by oral route 2 times per day with meals Stool Softener oral Opdivo 100 mg/10 mL intravenous solution tamsulosin 0.4 mg oral capsule 06/15/2018 TAKE 1 CAPSULE BY MOUTH ONCE DAILY A HALF HOUR FOLLOWING THE SAME MEAL EACH DAY Calcium 600 600 mg calcium (1,500 mg) oral tablet pravastatin 40 mg oral tablet 07/20/2018 TAKE 1 TABLET BY MOUTH ONCE DAILY AT BEDTIME cetirizine-pseudoephedrine 5-120 mg oral tablet extended release 12 hr 2018 take 1 tablet by oral route 2 times per day Name Start Date Expiration Date SIG Comments Jublia 10 % topical solution with applicator 12/22/2015 apply to affected toenail(s) by topical route once daily mupirocin 2 % topical ointment 12/22/2015 apply a small amount to the affected area by topical route 3 times per day triamcinolone acetonide 0.5 % topical ointment 12/22/2015 apply a thin layer to the affected area(s) by topical route 3 times per day lisinopril 40 mg oral tablet 04/09/2016 take 1 tablet (40 mg) by oral route once daily Xarelto oral Xarelto 15 mg oral tablet take 1 tablet (15 mg) by oral route 2 times per day with food for 21 days lisinopril 20 mg oral tablet take 1 tablet (20 mg) by oral route once daily Aspir-81 81 mg oral tablet,delayed release (DR/EC) take 1 tablet (81 mg ) by oral route once daily prednisone 10 mg oral tablet 12/24/2016 40mg (4 tabs) PO QD x 4 days then, 20mg (2 tabs) PO QD x 4 days then, 10mg (1 tab) PO QD x 4 days oxycodone-acetaminophen 10-325 mg oral tablet 02/12/2017 take 1 tablet by oral route every 4 hours as needed for pain Augmentin 875-125 mg oral tablet take 1 tablet by oral route every 12 hours morphine 15 mg oral tablet extended release 09/08/2017 take 1 tablet (15 mg) by oral route every 12 hours Humalog KwikPen 100 unit/mL subcutaneous insulin pen 09/18/2017 inject by subcutaneous route per prescriber's instructions. Insulin dosing requires individualization. Lasix 40 mg oral tablet 10/07/2017 take 1 tablet by oral route daily as needed Klor-Con 10 10 mEq oral tablet extended release 10/07/2017 take 1 tablet by oral route daily as needed Levemir FlexTouch 100 unit/mL (3 mL) subcutaneous insulin pen 10/20/2017 inject 12 units by subcutaneous route once Carafate 1 gram oral tablet 11/26/2017 take 1 tablet (1 gram) by oral route 4 times per day on an empty stomach 1 hour before meals and at bedtime pantoprazole 40 mg oral tablet,delayed release (DR/EC) 12/10/2017 take 1 tablet (40 mg) by oral route once daily for 30 days metoclopramide HCl 10 mg oral tablet 12/10/2017 take 1 tablet (10 mg) by oral route 4 times per day 30 minutes before meals and at bedtime for 30 days pravastatin 40 mg oral tablet 01/20/2018 04/20/2018 TAKE ONE TABLET BY MOUTH ONCE DAILY AT BEDTIME omeprazole 40 mg oral capsule,delayed release(DR/EC) 01/27/2018 01/27/2018 TAKE ONE CAPSULE BY MOUTH ONCE DAILY triamcinolone acetonide 0.5 % topical ointment 07/16/2018 apply a thin layer to the affected area(s) by topical route 3 times per day fluticasone 50 mcg/actuation nasal spray,suspension 11/02/2018 inhale 1 spray (50 mcg) in each nostril by intranasal route 2 times per day doxycycline hyclate 100 mg oral capsule 11/02/2018 11/12/2018 take 1 capsule (100 mg) by oral route 2 times per day for 10 days prednisone 20 mg oral tablet 12/21/2018 12/26/2018 take 2 tablets (40 mg) by oral route once daily for 5 days amoxicillin-pot clavulanate 875-125 mg oral tablet 12/21/2018 12/31/2018 take 1 tablet by oral route every 12 hours for 10 days Discontinued Name Start Date Discontinued Date SIG Comments omeprazole 40 mg oral capsule,delayed release(DR/EC) take 1 capsule (40 mg) by oral route once daily before a meal Novolog Flexpen 100 unit/mL subcutaneous insulin pen 09/18/2017 09/18/2017 inject by subcutaneous route per prescriber's instructions. Insulin dosing requires individualization. Tresiba FlexTouch U-100 100 unit/mL (3 mL) subcutaneous insulin pen 201610/20/2017 inject 12 units by subcutaneous route once Problem List Description Status Onset Hypertension Active Renal cell carcinoma Active Pulmonary embolism Active Diabetes Active 07/16/2018 Right shoulder tendinitis Active 07/16/2018 Paronychia of great toe, right Active 07/16/2018 Vital Signs Date Time BP-Sys(mm[Hg] BP-Lizbeth(mm[Hg]) HR(bpm) RR(rpm) Temp WT HT HC BMI BSA BMI Percentile O2 Sat(%) 01/12/2019 3:24:00 PM 132 mmHg 70 mmHg 63 bpm 16 rpm 97.5 F 215 lbs 76 in 26.1704 kg/m 2.2868 m 99 % 12/21/2018 2:19:00 PM 136 mmHg 64 mmHg 69 bpm 16 rpm 97.8 F 215.5 lbs 76 in 26.23 kg/m2 2.29 m2 97 % 11/02/2018 9:54:00 AM 124 mmHg 80 mmHg 90 bpm 18 rpm 97.9 F 213.25 lbs 76 in 25.9573 kg/m 2.2775 m 97 % 07/15/2018 2:53:00 PM 140 mmHg 78 mmHg 72 bpm 16 rpm 97.2 F 204.375 lbs 76 in 24.88 kg/m2 2.23 m2 98 % 01/07/2018 3:24:00 PM 122 mmHg 80 mmHg 80 bpm 16 rpm 98 F 209 lbs 76 in 25.44 kg/m2 2.25 m2 96 % 12/10/2017 10:34:00 AM 122 mmHg 70 mmHg 67 bpm 16 rpm 97.5 F 221 lbs 76 in 26.9007 kg/m 2.3185 m 98 % 11/26/2017 2:53:00 PM 128 mmHg 74 mmHg 83 bpm 16 rpm 98.3 F 221 lbs 76 in 26.90 kg/m2 2.32 m2 100 % 11/19/2017 11:51:00 AM 116 mmHg 66 mmHg 62 bpm 16 rpm 97.6 F 222 lbs 76 in 27.0224 kg/m 2.3237 m 99 % 11/12/2017 10:11:00 AM 136 mmHg 82 mmHg 72 bpm 16 rpm 98.6 F 224 lbs 76 in 27.27 kg/m2 2.33 m2 99 % 10/29/2017 10:02:00 AM 136 mmHg 72 mmHg 93 bpm 16 rpm 98.6 F 224 lbs 76 in 27.2659 kg/m 2.3342 m 99 % 10/06/2017 11:01:00 AM 100 mmHg 66 mmHg 86 bpm 16 rpm 98.6 F 223.5 lbs 100 % 09/08/2017 1:50:00 PM 110 mmHg 68 mmHg 76 bpm 16 rpm 98 F 209 lbs 76 in 25.44 kg/m2 2.25 m2 99 % 09/03/2017 1:06:00 PM 116 mmHg 76 mmHg 78 bpm 16 rpm 98.9 F 207 lbs 76 in 25.1966 kg/m 2.2438 m 97 % 08/11/2017 10:29:00 AM 126 mmHg 80 mmHg 102 bpm 16 rpm 98.9 F 205 lbs 76 in 24.95 kg/m2 2.23 m2 96 % 05/01/2017 10:00:00 AM 124 mmHg 64 mmHg 72 bpm 16 rpm 99.6 F 235 lbs 76 in 28.6048 kg/m 2.3908 m 98 % 12/24/2016 1:42:00 PM 121 mmHg 64 mmHg 70 bpm 16 rpm 97.1 F 231 lbs 76 in 28.12 kg/m2 2.37 m2 96 % 08/26/2016 3:33:00 PM 148 mmHg 78 mmHg 99 bpm 16 rpm 96.7 F 230 lbs 76 in 27.9962 kg/m 2.3652 m 98 % 07/31/2016 9:22:00 AM 133 mmHg 64 mmHg 78 bpm 18 rpm 97.6 F 229 lbs 76 in 27.87 kg/m2 2.36 m2 98 % 12/22/2015 8:34:00 AM 130 mmHg 80 mmHg 64 bpm 16 rpm 97.1 F 242 lbs 76 in 29.4569 kg/m 2.4261 m 98 % 08/29/2015 9:31:00 AM 130 mmHg 70 mmHg 87 bpm 18 rpm 97.4 F 239 lbs 76 in 29.09 kg/m2 2.41 m2 98 % 03/15/2015 9:45:00 AM 126 mmHg 58 mmHg 63 bpm 20 rpm 97.3 F 237 lbs 76 in 28.8482 kg/m 2.4009 m 97 % Social History Name Description Comments Tobacco Never smoker History of Procedures Date Ordered Description Order Status 12/22/2015 12:00 AM GENERAL HEALTH PANEL Reviewed 12/22/2015 12:00 AM LIPID PANEL Reviewed 12/22/2015 12:00 AM Prostate Cancer Screening Reviewed 08/02/2016 12:00 AM ROUTINE VENIPUNCTURE Reviewed 08/02/2016 12:00 AM LIPID PANEL Returned 08/02/2016 12:00 AM GENERAL HEALTH PANEL Returned 08/05/2016 12:00 AM ROUTINE VENIPUNCTURE Reviewed 08/05/2016 12:00 AM ASSAY OF IRON Returned 08/05/2016 12:00 AM ASSAY OF FERRITIN Returned 08/05/2016 12:00 AM BLOOD SMEAR INTERPRETATION Reviewed 06/18/2017 12:00 AM ROUTINE VENIPUNCTURE Reviewed 06/18/2017 12:00 AM ROUTINE VENIPUNCTURE Reviewed 06/18/2017 12:00 AM LIPID PANEL Returned 10/06/2017 12:00 AM IMMUNIZATION ADMIN Reviewed 10/06/2017 12:00 AM FLU VAC NO PRSV 4 JARVIS 3 YRS+ Reviewed 10/06/2017 12:00 AM GENERAL HEALTH PANEL Returned 10/29/2017 12:00 AM CULTURE OTHR SPECIMN AEROBIC Returned 01/07/2018 12:00 AM MRI LUMBAR SPINE W/O DYE Reviewed 06/08/2018 12:00 AM LIPID PANEL Reviewed 06/08/2018 12:00 AM GLYCOSYLATED HEMOGLOBIN TEST Reviewed 11/02/2018 12:00 AM IMMUNIZATION ADMIN Reviewed 11/02/2018 12:00 AM IMMUNIZATION ADMIN EACH ADD Reviewed 11/02/2018 12:00 AM FLU VAC NO PRSV 4 JARVIS 3 YRS+ Reviewed 11/02/2018 12:00 AM PNEUMOCOCCAL VACC 13 JARVIS IM Reviewed 11/02/2018 12:00 AM TDAP VACCINE 7 YRS/> IM Reviewed 12/10/2018 12:00 AM GLYCOSYLATED HEMOGLOBIN TEST Reviewed Results Summary Date and Description Results 12/22/2015 3:17 PM TSH 1.150 uIU/mLPSA TOTAL 0.540 ng/mL 06/15/2018 9:35 AM TRIGLYCERIDES 82 CHOLESTEROL 143 HDL 36 TOT CHOL/HDL 4.0 LDL (CALC) 91 HGB A1C 5.80 %Est Avg Glucose 119.8 12/16/2018 9:51 AM HGB A1C 5.60 %Est Avg Glucose 114.0 History Of Immunizations Name Date Admin Mfg Name Mfg Code Trade Name Lot# Route Inj Vis Given Vis Pub CVX Influenza 10/06/2017 Other turkey roll maker OTH Flulaval quadrivalent [id number] Intramuscular Left Deltoid 10/06/2017 06/30/2015 158 Pneumococcal 11/02/2018 Muefp-Javynv-ShuqhotMojgan WAL PREVNAR 13 [id number] Intramuscular Right Deltoid 11/02/2018 11/24/2018 133 Influenza 11/02/2018 ID [employer] or [facility] BCQ Flulaval quadrivalent [id number] Intramuscular Left Deltoid 11/02/2018 11/24/2018 158 Tdap 11/02/2018 GlaxoSmithKline SKB BOOSTRIX [id number] Intramuscular Left Deltoid 11/02/2018 11/24/2018 115 History of Past Illness Name Date of Onset Comments Hypertension Renal cell carcinoma Pulmonary embolism Diabetes 07/16/2018 Right shoulder tendinitis 07/16/2018 Paronychia of great toe, right 07/16/2018 Hypertension Mar 15 2015 9:54AM Sebaceous cyst Mar 15 2015 9:54AM Tendonitis Mar 15 2015 9:54AM Abscess Of Trunk Aug 30 2015 8:49AM Hypertension Aug 29 2015 9:35AM Hypertension Dec 22 2015 8:38AM Screening for prostate cancer Dec 22 2015 8:38AM Finger lesion Dec 22 2015 8:38AM Toenail fungus Dec 22 2015 8:38AM Hypertension Aug 02 2016 8:29AM Microcytic anemia Aug 05 2016 11:48AM Cough Jul 31 2016 9:25AM Fatigue Jul 31 2016 9:25AM Hypertension Jul 31 2016 9:25AM Iron deficiency anemia due to chronic blood loss Aug 26 2016 3:33PM Occult blood in stools Aug 26 2016 3:33PM Chronic hypertrophic gastritis Sep 11 2016 1:23PM Gastric polyps Sep 11 2016 1:23PM Renal cell carcinoma Dec 09 2016 1:15PM Lumbar radiculopathy Dec 24 2016 1:46PM Malignant neoplasm of unspecified kidney, except renal pelvis Dec 24 2016 1: 46PM Bilateral pulmonary embolism Dec 24 2016 1:46PM Renal cell carcinoma May 01 2017 10:08AM Laboratory examination Jun 18 2017 9:47AM Hypertension Jun 18 2017 10:08AM Renal cell carcinoma Aug 11 2017 10:33AM Pulmonary embolism Aug 11 2017 10:33AM Diabetes Sep 03 2017 1:09PM Diabetes Sep 08 2017 1:54PM Edema Oct 06 2017 11:08AM Anemia Oct 06 2017 11:08AM Flu Vaccine Oct 06 2017 11:41AM Abscess, groin Oct 29 2017 10:01AM Abscess Of Trunk Oct 29 2017 10:01AM Abscess, eyelid, left Nov 12 2017 10:20AM Peptic ulcer Nov 26 2017 2:58PM Hypertension Nov 26 2017 2:58PM Renal cell carcinoma Nov 26 2017 2:58PM Pulmonary embolism Nov 26 2017 2:58PM Epigastric pain Dec 10 2017 10:35AM Low back pain Jan 07 2018 3:34PM 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 2018 3:34PM Epigastric pain Jan 07 2018 3:34PM Vomiting Jan 07 2018 3:34PM Early satiety Jan 07 2018 3:34PM Epigastric pain Jan 15 2018 12:52PM Abscess Of Face Dec 29 2017 8:11AM Diabetes mellitus, type II Jun 08 2018 11:46AM Hypertension Jul 15 2018 2:58PM Renal cell carcinoma Jul 15 2018 2:58PM Pulmonary embolism Jul 15 2018 2:58PM Diabetes Jul 15 2018 2:58PM Right shoulder tendinitis Jul 15 2018 2:58PM Paronychia of great toe, right Jul 15 2018 2:58PM Acute rhinosinusitis Nov 02 2018 10:01AM Cellulitis Nov 02 2018 10:01AM Flu Vaccine Nov 02 2018 10:35AM Pneumonia vaccine Nov 02 2018 10:35AM Need for Tdap vaccination Nov 02 2018 10:35AM Diabetes mellitus, type II Dec 10 2018 3:11PM Acute rhinosinusitis Dec 21 2018 2:25PM Nasal congestion with rhinorrhea Jan 12 2019 3:27PM Acute rhinosinusitis Jan 18 2019 1:03PM Payers Insurance Name Company Name Plan Name Plan Number Policy Number Policy Group Number [id number] Saturday, 2017 [facility] [id number] Sunday, 2015 Aet[employer] Aetna [id number] N/A History of Encounters Visit Date Visit Type Provider 01/12/2019 Office visit MARIANA HARLEY GRAIN MILL WORKER 12/21/2018 Office visit MARIANA HARLEY GRAIN MILL WORKER 11/02/2018 Office visit MARIANA HARLEY GRAIN MILL WORKER 07/15/2018 Office visit MARIANA HARLEY GRAIN MILL WORKER 01/16/2018 Surgery Damion Perdomo MD 01/07/2018 Office visit MARIANA HARLEY GRAIN MILL WORKER 12/10/2017 Office visit Damion Perdomo MD 11/26/2017 Office visit MARIANA HARLEY GRAIN MILL WORKER 11/19/2017 Office visit Damion Perdomo MD 11/12/2017 Procedures Damion Perdomo MD 10/29/2017 Procedures Damion Perdomo MD 10/06/2017 Office visit MARIANA HARLEY GRAIN MILL WORKER 09/08/2017 Office visit MARIANA HARLEY GRAIN MILL WORKER 09/03/2017 Office visit MARIANA HARLEY GRAIN MILL WORKER 08/11/2017 Office visit MARIANA HARLEY GRAIN MILL WORKER 06/18/2017 Laboratory MARIANA HARLEY GRAIN MILL WORKER 06/04/2017 Laboratory MARIANA HARLEY GRAIN MILL WORKER 05/01/2017 Office visit MARIANA HARLEY GRAIN MILL WORKER 04/24/2017 Hospital Alphonse Bender MD 04/23/2017 [facility] [place] Quiroz MD 12/24/2016 Office visit MARIANA HARLEY GRAIN MILL WORKER 12/10/2016 Surgery Damion Perdomo MD 09/10/2016 Office visit Damion Perdomo MD 08/29/2016 Hospital Damion Perdomo MD 08/26/2016 Office visit Damion Perdomo MD 08/05/2016 Laboratory MARIANA HARLEY GRAIN MILL WORKER 08/02/2016 Laboratory MARIANA HARLEY GRAIN MILL WORKER 07/31/2016 Office visit MARIANA HARLEY GRAIN MILL WORKER 12/22/2015 Office visit MARIANA HARLEY GRAIN MILL WORKER 08/29/2015 Office visit Damion Perdomo MD 08/29/2015 Office visit MARIANA HARLEY GRAIN MILL WORKER 03/15/2015 Office visit MARIANA HARLEY GRAIN MILL WORKER
--- OUTSIDE RECORDS SUMMARY | 2019-04-08 09:39 | XMS REPORT ---
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 Flulaval quadrivalent [id number] Intramuscular Left Deltoid 10/06/2017 06/30/2015 158 Pneumococcal 11/02/2018 Cqvlb-Exqpur-AmztuusMojgan WAL PREVNAR 13 [id number] Intramuscular Right Deltoid 11/02/2018 11/24/2018 133 Influenza 11/02/2018 ID [employer] or [employer] BCQ Flulaval quadrivalent [id number] Intramuscular Left Deltoid [...] Policy Number Policy Group Number [id number] Saturday, 2017 [facility] [id number] Sunday, 2015 [employer]et[employer] [id number] N/A History of Encounters Visit Date Visit Type Provider 01/12/2019 Office visit MARIANA HARLEY POOLROOM/POOLHALL MANAGER 12/21/2018 Office visit MARIANA HARLEY POOLROOM/POOLHALL MANAGER 11/02/2018 Office visit MARIANA HARLEY POOLROOM/POOLHALL MANAGER 07/15/2018 Office visit MARIANA HARLEY POOLROOM/POOLHALL MANAGER 01/16/2018 Surgery Damion Perdomo MD 01/07/2018 Office visit MARIANA HARLEY POOLROOM/POOLHALL MANAGER 12/10/2017 Office visit Damion Perdomo MD 11/26/2017 Office visit MARIANA HARLEY POOLROOM/POOLHALL MANAGER 11/19/2017 Office visit Damion Perdomo MD 11/12/2017 Procedures Damion Perdomo MD 10/29/2017 Procedures Damion Perdomo MD 10/06/2017 Office visit MARIANA HARLEY POOLROOM/POOLHALL MANAGER 09/08/2017 Office visit MARIANA HARLEY POOLROOM/POOLHALL MANAGER 09/03/2017 Office visit MARIANA HARLEY POOLROOM/POOLHALL MANAGER 08/11/2017 Office visit MARIANA HARLEY POOLROOM/POOLHALL MANAGER 06/18/2017 Laboratory MARIANA HARLEY POOLROOM/POOLHALL MANAGER 06/04/2017 Laboratory MARIANA HARLEY POOLROOM/POOLHALL MANAGER 05/01/2017 Office visit MARIANA HARLEY POOLROOM/POOLHALL MANAGER 04/24/2017 Hospital Alphonse Bender MD 04/23/2017 [facility] [place] Quiroz MD 12/24/2016 Office visit MARIANA HARLEY POOLROOM/POOLHALL MANAGER 12/10/2016 Surgery Damion Perdomo MD 09/10/2016 Office visit Damion Perdomo MD 08/29/2016 Hospital Damion Perdomo MD 08/26/2016 Office visit Damion Perdomo MD 08/05/2016 Laboratory MARIANA HARLEY POOLROOM/POOLHALL MANAGER 08/02/2016 Laboratory MARIANA HARLEY POOLROOM/POOLHALL MANAGER 07/31/2016 Office visit MARIANA HARLYE POOLROOM/POOLHALL MANAGER 12/22/2015 Office visit MARIANA HARLEY POOLROOM/POOLHALL MANAGER 08/29/2015 Office visit Damion Perdomo MD 08/29/2015 Office visit MARIANA HARLEY POOLROOM/POOLHALL MANAGER 03/15/2015 Office visit MARIANA HARLEY POOLROOM/POOLHALL MANAGER
--- OUTSIDE RECORDS SUMMARY | 2019-04-08 09:40 | XMS REPORT ---
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 OTH Flulaval quadrivalent [id number] Intramuscular Left Deltoid 10/06/2017 06/30/2015 158 Pneumococcal 11/02/2018 Pwfgv-Yvikcz-AgsfjlcMojgan WAL PREVNAR 13 [id number] Intramuscular Right Deltoid 11/02/2018 11/24/2018 133 Influenza 11/02/2018 ID [employer] or [employer] BCQ Flulaval quadrivalent [id number] Intramuscular Left Deltoid [...] Policy Number Policy Group Number [id number] Saturday, 2017 [facility] [id number] Sunday, 2015 Aet[employer] Aetna [id number] N/A History of Encounters Visit Date Visit Type Provider 01/12/2019 Office visit MARIANA HARLEY FACILITY MAINTENANCE HELPER 12/21/2018 Office visit MARIANA HARLEY FACILITY MAINTENANCE HELPER 11/02/2018 Office visit MARIANA HARLEY FACILITY MAINTENANCE HELPER 07/15/2018 Office visit MARIANA HARLEY FACILITY MAINTENANCE HELPER 01/16/2018 Surgery Damion Perdomo MD 01/07/2018 Office visit MARIANA HARLEY FACILITY MAINTENANCE HELPER 12/10/2017 Office visit Damion Perdomo MD 11/26/2017 Office visit MARIANA HARLEY FACILITY MAINTENANCE HELPER 11/19/2017 Office visit Damion Perdomo MD 11/12/2017 Procedures Damion Perdomo MD 10/29/2017 Procedures Damion Perdomo MD 10/06/2017 Office visit MARIANA HARLEY FACILITY MAINTENANCE HELPER 09/08/2017 Office visit MARIANA HARLEY FACILITY MAINTENANCE HELPER 09/03/2017 Office visit MARIANA HARLEY FACILITY MAINTENANCE HELPER 08/11/2017 Office visit MARIANA HARLEY FACILITY MAINTENANCE HELPER 06/18/2017 Laboratory MARIANA HARLEY FACILITY MAINTENANCE HELPER 06/04/2017 Laboratory MARIANA HARLEY FACILITY MAINTENANCE HELPER 05/01/2017 Office visit MARIANA HARLEY FACILITY MAINTENANCE HELPER 04/24/2017 Hospital Alphonse Bender MD 04/23/2017 [facility] [place] Quiroz MD 12/24/2016 Office visit MARIANA HARLEY FACILITY MAINTENANCE HELPER 12/10/2016 Surgery Damion Perdomo MD 09/10/2016 Office visit Damion Perdomo MD 08/29/2016 Hospital Damion Perdomo MD 08/26/2016 Office visit Damion Perdomo MD 08/05/2016 Laboratory MARIANA HARLEY FACILITY MAINTENANCE HELPER 08/02/2016 Laboratory MARIANA HARLEY FACILITY MAINTENANCE HELPER 07/31/2016 Office visit MARIANA HARLEY FACILITY MAINTENANCE HELPER 12/22/2015 Office visit MARIANA HARLEY FACILITY MAINTENANCE HELPER 08/29/2015 Office visit Damion Perdomo MD 08/29/2015 Office visit MARIANA HARLEY FACILITY MAINTENANCE HELPER 03/15/2015 Office visit MARIANA HARLEY FACILITY MAINTENANCE HELPER
--- OUTSIDE RECORDS SUMMARY | 2019-04-08 09:40 | XMS REPORT ---
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 Flulaval quadrivalent [id number] Intramuscular Left Deltoid 10/06/2017 06/30/2015 158 Pneumococcal 11/02/2018 Xzvmu-Rmmzbf-PlrvzlqMojgan WAL PREVNAR 13 [id number] Intramuscular Right Deltoid 11/02/2018 11/24/2018 133 Influenza 11/02/2018 ID mascotsecret or [employer] BCQ Flulaval quadrivalent [id number] Intramuscular Left Deltoid [...] Policy Number Policy Group Number [id number] Saturday, 2017 [facility] [id number] Sunday, 2015 Aetna Aetna [id number] N/A History of Encounters Visit Date Visit Type Provider 01/12/2019 Office visit MARIANA HARLEY LIGHT RAIL OPERATOR 12/21/2018 Office visit MARIANA HARLEY LIGHT RAIL OPERATOR 11/02/2018 Office visit MARIANA HARLEY LIGHT RAIL OPERATOR 07/15/2018 Office visit MARIANA HARLEY LIGHT RAIL OPERATOR 01/16/2018 Surgery Damion Perdomo MD 01/07/2018 Office visit MARIANA HARLEY LIGHT RAIL OPERATOR 12/10/2017 Office visit Damion Perdomo MD 11/26/2017 Office visit MARIANA HARLEY LIGHT RAIL OPERATOR 11/19/2017 Office visit Damion Perdomo MD 11/12/2017 Procedures Damion Perdomo MD 10/29/2017 Procedures Damion Perdomo MD 10/06/2017 Office visit MARIANA HARLEY LIGHT RAIL OPERATOR 09/08/2017 Office visit MARIANA HARLEY LIGHT RAIL OPERATOR 09/03/2017 Office visit MARIANA HARLEY LIGHT RAIL OPERATOR 08/11/2017 Office visit MARIANA HARLEY LIGHT RAIL OPERATOR 06/18/2017 Laboratory MARIANA AHRLEY LIGHT RAIL OPERATOR 06/04/2017 Laboratory MARIANA HARLEY LIGHT RAIL OPERATOR 05/01/2017 Office visit MARIANA HARLEY LIGHT RAIL OPERATOR 04/24/2017 Hospital Alphonse Bender MD 04/23/2017 [facility] [place]iro[place] MD 12/24/2016 Office visit MARIANA HARLEY LIGHT RAIL OPERATOR 12/10/2016 Surgery Damion Perdomo MD 09/10/2016 Office visit Damion Perdomo MD 08/29/2016 Hospital Damion Perdomo MD 08/26/2016 Office visit Damion Perdomo MD 08/05/2016 Laboratory MARIANA HARLEY LIGHT RAIL OPERATOR 08/02/2016 Laboratory MARIANA HARLEY LIGHT RAIL OPERATOR 07/31/2016 Office visit MARIANA HARLEY LIGHT RAIL OPERATOR 12/22/2015 Office visit MARIANA HARLEY LIGHT RAIL OPERATOR 08/29/2015 Office visit Damion Perdomo MD 08/29/2015 Office visit MARIANA HARLEY LIGHT RAIL OPERATOR 03/15/2015 Office visit MARIANA HARLEY LIGHT RAIL OPERATOR
--- OUTSIDE RECORDS SUMMARY | 2019-04-08 09:41 | XMS REPORT ---
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 OTH Flulaval quadrivalent [id number] Intramuscular Left Deltoid 10/06/2017 06/30/2015 158 Pneumococcal 11/02/2018 Zpbna-Xnlrxq-CltbmigMojgan WAL PREVNAR 13 [id number] Intramuscular Right Deltoid 11/02/2018 11/24/2018 133 Influenza 11/02/2018 ID WUT or GeoGraffiti BCQ Flulaval quadrivalent [id number] Intramuscular Left Deltoid [...] Policy Number Policy Group Number [id number] Saturday, 2017 [facility] [id number] Sunday, 2015 Aetna Aetna [id number] N/A History of Encounters Visit Date Visit Type Provider 01/12/2019 Office visit MARIANA HARLEY ENGINE ROOM OPERATOR 12/21/2018 Office visit MARIANA HARLEY ENGINE ROOM OPERATOR 11/02/2018 Office visit MARIANA HARLEY ENGINE ROOM OPERATOR 07/15/2018 Office visit MARIANA HARLEY ENGINE ROOM OPERATOR 01/16/2018 Surgery Damion Perdomo MD 01/07/2018 Office visit MARIANA HARLEY ENGINE ROOM OPERATOR 12/10/2017 Office visit Damion Perdomo MD 11/26/2017 Office visit MARIANA HARLEY ENGINE ROOM OPERATOR 11/19/2017 Office visit Damion Perdomo MD 11/12/2017 Procedures Damion Perdomo MD 10/29/2017 Procedures Damion Perdomo MD 10/06/2017 Office visit MARIANA HARLEY ENGINE ROOM OPERATOR 09/08/2017 Office visit MARIANA HARLEY ENGINE ROOM OPERATOR 09/03/2017 Office visit MARIANA HARLEY ENGINE ROOM OPERATOR 08/11/2017 Office visit MARIANA HARLEY ENGINE ROOM OPERATOR 06/18/2017 Laboratory MARIANA HARLEY ENGINE ROOM OPERATOR 06/04/2017 Laboratory MARIANA HARLEY ENGINE ROOM OPERATOR 05/01/2017 Office visit MARIANA HARLEY ENGINE ROOM OPERATOR 04/24/2017 Hospital Al[facility]onse Bender MD 04/23/2017 [facility] [place] Quiroz MD 12/24/2016 Office visit MARIANA HARLEY ENGINE ROOM OPERATOR 12/10/2016 Surgery Damion Perdomo MD 09/10/2016 Office visit Damion Perdomo MD 08/29/2016 Hospital Damion Perdomo MD 08/26/2016 Office visit Damion Perdomo MD 08/05/2016 Laboratory MARIANA HARLEY ENGINE ROOM OPERATOR 08/02/2016 Laboratory MARIANA HARLEY ENGINE ROOM OPERATOR 07/31/2016 Office visit MARIANA HARLEY ENGINE ROOM OPERATOR 12/22/2015 Office visit MARIANA HARLEY ENGINE ROOM OPERATOR 08/29/2015 Office visit Damion Perdomo MD 08/29/2015 Office visit MARIANA HARLEY ENGINE ROOM OPERATOR 03/15/2015 Office visit MARIANA HARLEY ENGINE ROOM OPERATOR
--- OUTSIDE RECORDS SUMMARY | 2019-04-08 09:42 | XMS REPORT ---
Author Author MARIANA HARLEY Organization [facility] Address [address] [place], [place] [id number] Care Team Providers Care Food Quality Technician Name Role Phone MARIANA HARLEY PCP MARIANA HARLEY PreferredProvider Allergies and Adverse Reactions Name Reaction Notes No known history of drug allergy Plan of Treatment Not available. 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 OTH Flulaval quadrivalent [id number] Intramuscular Left Deltoid 10/06/2017 06/30/2015 158 Pneumococcal 11/02/2018 Djryp-Leqvnn-Wqrnptm-Mojgan WAL PREVNAR 13 [id number] Intramuscular Right Deltoid 11/02/2018 11/24/2018 133 Influenza 11/02/2018 ID ProTip or Gucash BCQ Flulaval quadrivalent [id number] Intramuscular Left Deltoid 11/02/2018 11/24/2018 158 Tdap 11/02/2018 GlaxoSmDriftyKline SKB BOOSTRIX [id number] Intramuscular Left Deltoid 11/02/2018 [...] congestion with rhinorrhea Jan 12 2019 3:27PM Payers Insurance Name Company Name Plan Name Plan Number Policy Number Policy Group Number Start Date BCBS [employer] [place] [id number] Saturday, 2017 [facility] [id number] Sunday, 2015 Melba Reilly [id number] N/A History of Encounters Visit Date Visit Type Provider 01/12/2019 Office visit MARIANA HARLEY ELECTRICAL INTEGRATOR 12/21/2018 Office visit MARIANA HARLEY ELECTRICAL INTEGRATOR 11/02/2018 Office visit MARIANA HARLEY ELECTRICAL INTEGRATOR 07/15/2018 Office visit MARIANA HARLEY ELECTRICAL INTEGRATOR 01/16/2018 Surgery Damion Perdomo MD 01/07/2018 Office visit MARIANA HARLEY ELECTRICAL INTEGRATOR 12/10/2017 Office visit Damion Perdomo MD 11/26/2017 Office visit MARIANA HARLEY ELECTRICAL INTEGRATOR 11/19/2017 Office visit Damion Perdomo MD 11/12/2017 Procedures Damion Perdomo MD 10/29/2017 Procedures Damion Perdomo MD 10/06/2017 Office visit MARIANA HARLEY ELECTRICAL INTEGRATOR 09/08/2017 Office visit MARIANA HARLEY ELECTRICAL INTEGRATOR 09/03/2017 Office visit MARIANA HARLEY ELECTRICAL INTEGRATOR 08/11/2017 Office visit MARIANA HARLEY ELECTRICAL INTEGRATOR 06/18/2017 Laboratory MARIANA HARLEY ELECTRICAL INTEGRATOR 06/04/2017 Laboratory MARIANA HARLEY ELECTRICAL INTEGRATOR 05/01/2017 Office visit MARIANA HARLEY ELECTRICAL INTEGRATOR 04/24/2017 Hospital Alphonse Bender MD 04/23/2017 [facility] [place] Quiroz MD 12/24/2016 Office visit MARIANA HARLEY ELECTRICAL INTEGRATOR 12/10/2016 Surgery Damion Perdomo MD 09/10/2016 Office visit Damion Perdomo MD 08/29/2016 Hospital Damion Perdomo MD 08/26/2016 Office visit Damion Perdomo MD 08/05/2016 Laboratory MARIANA HARLEY ELECTRICAL INTEGRATOR 08/02/2016 Laboratory MARIANA HARLEY ELECTRICAL INTEGRATOR 07/31/2016 Office visit MARIANA HARLEY ELECTRICAL INTEGRATOR 12/22/2015 Office visit MARIANA HARLEY ELECTRICAL INTEGRATOR 08/29/2015 Office visit Damion Perdomo MD 08/29/2015 Office visit MARIANA HARLEY ELECTRICAL INTEGRATOR 03/15/2015 Office visit MARIANA HARLEY ELECTRICAL INTEGRATOR
--- OUTSIDE RECORDS SUMMARY | 2019-04-08 09:42 | XMS REPORT ---
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 OTH Flulaval quadrivalent [id number] Intramuscular Left Deltoid 10/06/2017 06/30/2015 158 Pneumococcal 11/02/2018 Kotic-Smqaar-Lymntqz-Mojgan WAL PREVNAR 13 [id number] Intramuscular Right Deltoid 11/02/2018 11/24/2018 133 Influenza 11/02/2018 ID D.light Design or Doppelganger BCQ Flulaval quadrivalent [id number] Intramuscular Left Deltoid 11/02/2018 11/24/2018 158 Tdap 11/02/2018 GlaxoSmTitan PharmaceuticalsKline SKB BOOSTRIX [id number] Intramuscular Left Deltoid 11/02/2018 [...] Group Number Start Date BCBS [employer] [place] [id number] Saturday, 2017 [facility] [id number] Sunday, 2015 Melba Reilly [id number] N/A History of Encounters Visit Date Visit Type Provider 01/12/2019 Office visit MARIANA HARLEY SENIOR DIGITAL DESIGNER 12/21/2018 Office visit MARIANA HARLEY SENIOR DIGITAL DESIGNER 11/02/2018 Office visit MARIANA HARLEY SENIOR DIGITAL DESIGNER 07/15/2018 Office visit MARIANA HARLEY SENIOR DIGITAL DESIGNER 01/16/2018 Surgery Damion Perdomo MD 01/07/2018 Office visit MARIANA HARLEY SENIOR DIGITAL DESIGNER 12/10/2017 Office visit Damion Perdomo MD 11/26/2017 Office visit MARIANA HARLEY SENIOR DIGITAL DESIGNER 11/19/2017 Office visit Damion Perdomo MD 11/12/2017 Procedures Damion Perdomo MD 10/29/2017 Procedures Damion Perdomo MD 10/06/2017 Office visit MARIANA HARLEY SENIOR DIGITAL DESIGNER 09/08/2017 Office visit MARIANA HARLEY SENIOR DIGITAL DESIGNER 09/03/2017 Office visit MARIANA HARLEY SENIOR DIGITAL DESIGNER 08/11/2017 Office visit MARIANA HARLEY SENIOR DIGITAL DESIGNER 06/18/2017 Laboratory MARIANA HARLEY SENIOR DIGITAL DESIGNER 06/04/2017 Laboratory MARIANA HARLEY SENIOR DIGITAL DESIGNER 05/01/2017 Office visit MARIANA HARLEY SENIOR DIGITAL DESIGNER 04/24/2017 Hospital Alphonse Bender MD 04/23/2017 [facility] [place] Quiroz MD 12/24/2016 Office visit MARIANA HARLEY SENIOR DIGITAL DESIGNER 12/10/2016 Surgery Damion Perdomo MD 09/10/2016 Office visit Damion Perdomo MD 08/29/2016 Hospital Damion Perdomo MD 08/26/2016 Office visit Damion Perdomo MD 08/05/2016 Laboratory MARIANA HARLEY SENIOR DIGITAL DESIGNER 08/02/2016 Laboratory MARIANA HARLEY SENIOR DIGITAL DESIGNER 07/31/2016 Office visit MARIANA HARLEY SENIOR DIGITAL DESIGNER 12/22/2015 Office visit MARIANA HARLEY SENIOR DIGITAL DESIGNER 08/29/2015 Office visit Damion Perdomo MD 08/29/2015 Office visit MARIANA HARLEY SENIOR DIGITAL DESIGNER 03/15/2015 Office visit MARIANA HARLEY SENIOR DIGITAL DESIGNER
--- OUTSIDE RECORDS SUMMARY | 2019-04-08 09:43 | XMS REPORT ---
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 OTH Flulaval quadrivalent [id number] Intramuscular Left Deltoid 10/06/2017 06/30/2015 158 Pneumococcal 11/02/2018 Mobzx-Urvpsw-Jeibewe-Mojgan WAL PREVNAR 13 [id number] Intramuscular Right Deltoid 11/02/2018 11/24/2018 133 Influenza 11/02/[address] ID Screenie [address] [employer]p [employer] Bio BCQ Flulaval quadrivalent [id number] Intramuscular Left Deltoid 11/02/2018 11/24/2018 158 Tdap 11/02/2018 GlaxoSmAlign TechnologyKline SKB BOOSTRIX [id number] Intramuscular Left Deltoid 11/02/2018 [...] Group Number Start Date BCBS [employer] [place] [id number] Saturday, 2017 [facility] [id number] Sunday, 2015 Melba Reilly [id number] N/A History of Encounters Visit Date Visit Type Provider 01/12/2019 Office visit MARIANA HARLEY IRRIGATOR VALVE PIPE 12/21/2018 Office visit MARIANA HARLEY IRRIGATOR VALVE PIPE 11/02/2018 Office visit MARIANA HARLEY IRRIGATOR VALVE PIPE 07/15/2018 Office visit MARIANA HARLEY IRRIGATOR VALVE PIPE 01/16/2018 Surgery Damion Perdomo MD 01/07/2018 Office visit MARIANA HARLEY IRRIGATOR VALVE PIPE 12/10/2017 Office visit Damion Perdomo MD 11/26/2017 Office visit MARIANA HARLEY IRRIGATOR VALVE PIPE 11/19/2017 Office visit Damion Perdomo MD 11/12/2017 Procedures Damion Perdomo MD 10/29/2017 Procedures Damion Perdomo MD 10/06/2017 Office visit MARIANA HARLEY IRRIGATOR VALVE PIPE 09/08/2017 Office visit MARIANA HARLEY IRRIGATOR VALVE PIPE 09/03/2017 Office visit MARIANA HARLEY IRRIGATOR VALVE PIPE 08/11/2017 Office visit MARIANA HARLEY IRRIGATOR VALVE PIPE 06/18/2017 Laboratory MARIANA HARLEY IRRIGATOR VALVE PIPE 06/04/2017 Laboratory MARIANA HARLEY IRRIGATOR VALVE PIPE 05/01/2017 Office visit MARIANA HARLEY IRRIGATOR VALVE PIPE 04/24/2017 Hospital Alphonse Bender MD 04/23/2017 [facility] [place] Qurioz MD 12/24/2016 Office visit MARIANA HARLEY IRRIGATOR VALVE PIPE 12/10/2016 Surgery Damion Perdomo MD 09/10/2016 Office visit Damion Perdomo MD 08/29/2016 Hospital Damion Perdomo MD 08/26/2016 Office visit Damion Perdomo MD 08/05/2016 Laboratory MARIANA HARLEY IRRIGATOR VALVE PIPE 08/02/2016 Laboratory MARIANA HARLEY IRRIGATOR VALVE PIPE 07/31/2016 Office visit MARIANA HARLEY IRRIGATOR VALVE PIPE 12/22/2015 Office visit MARIANA HARLEY IRRIGATOR VALVE PIPE 08/29/2015 Office visit Damion Perdomo MD 08/29/2015 Office visit MARIANA HARLEY IRRIGATOR VALVE PIPE 03/15/2015 Office visit MARIANA HARLEY IRRIGATOR VALVE PIPE
--- OUTSIDE RECORDS SUMMARY | 2019-04-08 09:43 | XMS REPORT ---
Author Author MARIANA HARLEY Organization [facility] Address [address] [place], [place] [address] Care Team Providers Care Cook Chef Name Role Phone MARIANA HARLEY PCP MARIANA [...] Given Vis Pub CVX Influenza 10/06/2017 Other purchasing/receiving OTH Flulaval quadrivalent [id number] Intramuscular Left Deltoid 10/06/2017 06/30/2015 158 Pneumococcal 11/02/2018 Kzmbk-Eolwhr-Xxibaok-Mojgan WAL PREVNAR 13 [id number] Intramuscular Right Deltoid 11/02/2018 11/24/2018 133 Influenza 11/02/2018 ID Ceres or GeneCapture BCQ Flulaval quadrivalent [id number] Intramuscular Left Deltoid 11/02/2018 11/24/2018 158 Tdap 11/02/2018 GlaxoSmSanta Maria BiotherapeuticsKline SKB BOOSTRIX [id number] Intramuscular Left Deltoid 11/02/2018 [...] Group Number Start Date BCBS [place] [place] [id number] Saturday, 2017 [facility] [id number] Sunday, 2015 Melba Reilly [id number] N/A History of Encounters Visit Date Visit Type Provider 01/12/2019 Office visit MARIANA HARLEY CONFERENCE COORDINATOR 12/21/2018 Office visit MARIANA HARLEY CONFERENCE COORDINATOR 11/02/2018 Office visit MARIANA HARLEY CONFERENCE COORDINATOR 07/15/2018 Office visit MARIANA HARLEY CONFERENCE COORDINATOR 01/16/2018 Surgery Damion Perdomo MD 01/07/2018 Office visit MARIANA HARLEY CONFERENCE COORDINATOR 12/10/2017 Office visit Damion Perdomo MD 11/26/2017 Office visit MARIANA HARLEY CONFERENCE COORDINATOR 11/19/2017 Office visit Damion Perdomo MD 11/12/2017 Procedures Damion Perdomo MD 10/29/2017 Procedures Damion Perdomo MD 10/06/2017 Office visit MARIANA HARLEY CONFERENCE COORDINATOR 09/08/2017 Office visit MARIANA HARLEY CONFERENCE COORDINATOR 09/03/2017 Office visit MARIANA HARLEY CONFERENCE COORDINATOR 08/11/2017 Office visit MARIANA HARLEY CONFERENCE COORDINATOR 06/18/2017 Laboratory MARIANA HARLEY CONFERENCE COORDINATOR 06/04/2017 Laboratory MARIANA HARLEY CONFERENCE COORDINATOR 05/01/2017 Office visit MARIANA HARLEY CONFERENCE COORDINATOR 04/24/2017 Hospital Alphonse Bender MD 04/23/2017 [facility] [place] Quiroz MD 12/24/2016 Office visit MAIRANA HARLEY CONFERENCE COORDINATOR 12/10/2016 Surgery Damion Perdomo MD 09/10/2016 Office visit Damion Perdomo MD 08/29/2016 Hospital Damion Perdomo MD 08/26/2016 Office visit Damion Perdomo MD 08/05/2016 Laboratory MARIANA HARLEY CONFERENCE COORDINATOR 08/02/2016 Laboratory MARIANA HARLEY CONFERENCE COORDINATOR 07/31/2016 Office visit MARIANA HARLEY CONFERENCE COORDINATOR 12/22/2015 Office visit MARIANA HARLEY CONFERENCE COORDINATOR 08/29/2015 Office visit Damion Perdomo MD 08/29/2015 Office visit MARIANA HARLEY CONFERENCE COORDINATOR 03/15/2015 Office visit MAIRANA HARLEY CONFERENCE COORDINATOR
--- OUTSIDE RECORDS SUMMARY | 2019-04-08 09:44 | XMS REPORT ---
Author Author MARIANA HARLEY Organization [facility] Address [address] [place], [place] [address] Care Team Providers Care Title Vehicle Service Attendant Name Role Phone MARIANA HARLEY PCP MARIANA [...] TABLET BY MOUTH ONCE DAILY AT BEDTIME prednisone 20 mg oral tablet 12/21/2018 12/26/2018 take 2 tablets (40 mg) by oral route once daily for 5 days amoxicillin-pot clavulanate 875-125 mg oral tablet 12/21/2018 12/31/2018 take 1 tablet by oral route every 12 hours for 10 days Name Start Date Expiration Date SIG Comments [...] 2 times per day for 10 days Discontinued Name Start Date [...] HC BMI BSA BMI Percentile O2 Sat(%) 12/21/2018 2:19:00 PM 136 mmHg 64 mmHg 69 bpm 16 rpm 97.8 F 215.5 lbs 76 in 26.2312 kg/m 2.2894 m 97 % 11/02/2018 9:54:00 AM 124 mmHg 80 mmHg 90 bpm 18 rpm 97.9 F 213.25 lbs 76 in 25.96 kg/m2 2.28 m2 97 % 07/15/2018 2:53:00 PM 140 mmHg 78 mmHg 72 bpm 16 rpm 97.2 F 204.375 lbs 76 in 24.8771 kg/m 2.2296 m 98 % 01/07/2018 3:24:00 PM 122 mmHg [...] CHOL/HDL 4.0 LDL (CALC) 91 HGB A1C 5.8 Est Avg Glucose 119.8 12/16/2018 9:51 AM HGB A1C 5.6 Est Avg Glucose 114.0 History Of Immunizations Name Date Admin Mfg Name Mfg Code Trade Name Lot# Route Inj Vis Given Vis Pub CVX Influenza 10/06/2017 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 OTH Flulaval quadrivalent [id number] Intramuscular Left Deltoid 10/06/2017 06/30/2015 158 Pneumococcal 11/02/2018 Zivqf-Mpqprb-Lezxsti-Praberonica WAL PREVNAR 13 [id number] Intramuscular Right Deltoid 11/02/2018 11/24/2018 133 Influenza 11/02/2018 ID TNM Media Zeinab or [place] BCQ Flulaval quadrivalent [id number] Intramuscular Left Deltoid [...] 3:11PM Acute rhinosinusitis Dec 21 2018 2:25PM Payers Insurance Name Company Name Plan Name Plan Number Policy Number Policy Group Number Start Date [facility] [id number] Saturday, 2017 [facility] [id number] Sunday, 2015 Aetna Aetna [id number] N/A History of Encounters Visit Date Visit Type Provider 12/21/2018 Office visit MARIANA HARLEY PRESS SET UP 11/02/2018 Office visit MARIANA HARLEY PRESS SET UP 07/15/2018 Office visit MARIAAN HARLEY PRESS SET UP 01/16/2018 Surgery Damion Perdomo MD 01/07/2018 Office visit MARIANA HARLEY PRESS SET UP 12/10/2017 Office visit Damion Perdomo MD 11/26/2017 Office visit MARIANA HARLEY PRESS SET UP 11/19/2017 Office visit Damion Perdomo MD 11/12/2017 Procedures Damion Perdomo MD 10/29/2017 Procedures Damion Perdomo MD 10/06/2017 Office visit MARIANA HARLEY PRESS SET UP 09/08/2017 Office visit MARIANA HARLEY PRESS SET UP 09/03/2017 Office visit MARIANA HARLEY PRESS SET UP 08/11/2017 Office visit MARIANA HARLEY PRESS SET UP 06/18/2017 Laboratory MARIANA HARLEY PRESS SET UP 06/04/2017 Laboratory MARIANA HARLEY PRESS SET UP 05/01/2017 Office visit MARIANA HARLEY PRESS SET UP 04/24/2017 Hospital Alphonse Bender MD 04/23/2017 Hospital [place] Quiroz MD 12/24/2016 Office visit MARIANA HARLEY PRESS SET UP 12/10/2016 Surgery Damion Perdomo MD 09/10/2016 Office visit Damion Perdomo MD 08/29/2016 Hospital Damion Perdomo MD 08/26/2016 Office visit Damion Perdomo MD 08/05/2016 Laboratory MARIANA HARLEY PRESS SET UP 08/02/2016 Laboratory MARIANA HARLEY PRESS SET UP 07/31/2016 Office visit MARIANA HARLEY PRESS SET UP 12/22/2015 Office visit MAIRANA HARLEY PRESS SET UP 08/29/2015 Office visit Damion Perdomo MD 08/29/2015 Office visit MARIANA HARLEY PRESS SET UP 03/15/2015 Office visit MARIANA HARLEY PRESS SET UP
--- OUTSIDE RECORDS SUMMARY | 2019-04-08 09:45 | XMS REPORT ---
Author Author MARIANA HARLEY Organization [facility] Address [address] [place], [place] [address] Care Team Providers Care Yarn Spinner Name Role Phone MARIANA HARLEY PCP MARIANA HARLEY PreferredProvider Allergies and Adverse Reactions Name Reaction Notes No known history of drug allergy Plan of Treatment Planned Activity Comments Planned Date Planned Time Plan/Goal HEMOGLOBIN A1C 12/10/2018 12:00 AM Medications Active Name Start Date Estimated Completion Date SIG Comments pravastatin 40 mg oral tablet 10/04/2016 TAKE ONE TABLET BY MOUTH ONCE DAILY AT BEDTIME Xarelto 15 mg oral tablet take 1 tablet (15 mg) by oral route 2 times per day with food for 21 days metoprolol tartrate 50 mg oral tablet take 1 tablet (50 mg) by oral route 2 times per day with meals Stool Softener oral Opdivo 100 mg/10 mL intravenous solution tamsulosin 0.4 mg oral capsule 06/15/2018 TAKE 1 CAPSULE BY MOUTH ONCE DAILY A HALF HOUR FOLLOWING THE SAME MEAL EACH DAY Calcium 600 600 mg calcium (1,500 mg) oral tablet triamcinolone acetonide 0.5 % topical ointment 07/16/2018 apply a thin layer to the affected area(s) by topical route 3 times per day pravastatin 40 mg oral tablet 07/20/2018 TAKE 1 TABLET BY MOUTH ONCE DAILY AT BEDTIME fluticasone 50 mcg/actuation nasal spray,suspension 11/02/2018 inhale 1 spray (50 mcg) in each nostril by intranasal route 2 times per day Name Start [...] by oral route once daily Xarelto oral lisinopril 20 mg oral tablet take 1 [...] TAKE ONE CAPSULE BY MOUTH ONCE DAILY doxycycline hyclate 100 mg oral capsule 11/02/2018 [...] HC BMI BSA BMI Percentile O2 Sat(%) 11/02/2018 9:54:00 AM 124 mmHg 80 mmHg [...] AM TDAP VACCINE 7 YRS/> IM Reviewed Results Summary Date and Description Results 12/22/2015 3:17 PM TSH 1.150 uIU/mLPSA TOTAL 0.540 ng/mL 06/15/2018 9:35 AM TRIGLYCERIDES 82 CHOLESTEROL 143 HDL 36 TOT CHOL/HDL 4.0 LDL (CALC) 91 HGB A1C 5.8 Est Avg Glucose 119.8 History Of Immunizations Name Date Admin Mfg Name Mfg Code Trade Name Lot# Route Inj Vis Given Vis Pub CVX Influenza 10/06/2017 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 OTH Flulaval quadrivalent [id number] Intramuscular Left Deltoid 10/06/2017 06/30/2015 158 Pneumococcal 11/02/2018 Pzffd-Udbxqz-SukepjwMojgan WAL PREVNAR 13 [id number] Intramuscular Right Deltoid 11/02/2018 11/24/2018 133 Influenza 11/02/2018 ID Biomedical Zeinab or [place] BCQ Flulaval quadrivalent [id number] Intramuscular Left Deltoid [...] mellitus, type II Dec 10 2018 3:11PM Payers Insurance Name Company Name Plan Name Plan Number Policy Number Policy Group Number Start Date [facility] [id number] Saturday, 2017 [facility] [id number] Sunday, 2015 Aetna Aetna [id number] N/A History of Encounters Visit Date Visit Type Provider 11/02/2018 Office visit MARIANA HARLEY EXCEL VBA DEVELOPER 07/15/2018 Office visit MARIANA HARLEY EXCEL VBA DEVELOPER 01/16/2018 Surgery Damion Perdomo MD 01/07/2018 Office visit MARIANA HARLEY EXCEL VBA DEVELOPER 12/10/2017 Office visit Damion Perdomo MD 11/26/2017 Office visit MARIANA HARLEY EXCEL VBA DEVELOPER 11/19/2017 Office visit Damion Perdomo MD 11/12/2017 Procedures Damion Perdomo MD 10/29/2017 Procedures Damion Perdomo MD 10/06/2017 Office visit MARIANA HARLEY EXCEL VBA DEVELOPER 09/08/2017 Office visit MARIANA HARLEY EXCEL VBA DEVELOPER 09/03/2017 Office visit MARIANA HARLEY EXCEL VBA DEVELOPER 08/11/2017 Office visit MARIANA HARLEY EXCEL VBA DEVELOPER 06/18/2017 Laboratory MARIANA HARLEY EXCEL VBA DEVELOPER 06/04/2017 Laboratory MARIANA HARLEY EXCEL VBA DEVELOPER 05/01/2017 Office visit MARIANA HARLEY EXCEL VBA DEVELOPER 04/24/2017 Hospital Alphonse Bender MD 04/23/2017 Hospital [place] Quiro[place] MD 12/24/2016 Office visit MARIANA HARLEY EXCEL VBA DEVELOPER 12/10/2016 Surgery Damion Perdomo MD 09/10/2016 Office visit Damion Perdomo MD 08/29/2016 Hospital Damion Perdomo MD 08/26/2016 Office visit Damion Perdomo MD 08/05/2016 Laboratory MARIANA HARLEY EXCEL VBA DEVELOPER 08/02/2016 Laboratory MARIANA HARLEY EXCEL VBA DEVELOPER 07/31/2016 Office visit MARIANA HARLEY EXCEL VBA DEVELOPER 12/22/2015 Office visit MARIANA HARLEY EXCEL VBA DEVELOPER 08/29/2015 Office visit Damion Perdomo MD 08/29/2015 Office visit MARIANA HARLEY EXCEL VBA DEVELOPER 03/15/2015 Office visit MARIANA HARLEY EXCEL VBA DEVELOPER
--- OUTSIDE RECORDS SUMMARY | 2019-04-08 09:45 | XMS REPORT ---
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 OTH Flulaval quadrivalent [id number] Intramuscular Left Deltoid 10/06/2017 06/30/2015 158 Pneumococcal 11/02/2018 Lmkwu-Bfiiib-GzsgnhmMojgan WAL PREVNAR 13 [id number] Intramuscular Right Deltoid 11/02/2018 11/24/2018 133 Influenza 11/02/2018 ID Biomedical Zeinab or [place] BCQ Flulaval quadrivalent [id number] Intramuscular Left Deltoid [...] Policy Number Policy Group Number Start Date [facility] [id number] Saturday, 2017 [facility] [id number] Sunday, 2015 Aetna Aetna [id number] N/A History of Encounters Visit Date Visit Type Provider 11/02/2018 Office visit MARIANA HARLEY MANAGER RECRUITING 07/15/2018 Office visit MARIANA HARLEY MANAGER RECRUITING 01/16/2018 Surgery Damion Perdomo MD 01/07/2018 Office visit MARIANA HARLEY MANAGER RECRUITING 12/10/2017 Office visit Damion Perdomo MD 11/26/2017 Office visit MARIANA HARLEY MANAGER RECRUITING 11/19/2017 Office visit Damion Perdomo MD 11/12/2017 Procedures Damion Perdomo MD 10/29/2017 Procedures Damion Perdomo MD 10/06/2017 Office visit MARIANA HARLEY MANAGER RECRUITING 09/08/2017 Office visit MARIANA HARLEY MANAGER RECRUITING 09/03/2017 Office visit MARIANA HARLEY MANAGER RECRUITING 08/11/2017 Office visit MARIANA HARLEY MANAGER RECRUITING 06/18/2017 Laboratory MARIANA HARLEY MANAGER RECRUITING 06/04/2017 Laboratory MARIANA HARLEY MANAGER RECRUITING 05/01/2017 Office visit MARIANA HARLEY MANAGER RECRUITING 04/24/2017 Hospital Alphonse Bender MD 04/23/2017 [facility] [place] Quiroz MD 12/24/2016 Office visit MARIANA HARLEY MANAGER RECRUITING 12/10/2016 Surgery Damion Perdomo MD 09/10/2016 Office visit Damion Perdomo MD 08/29/2016 Hospital Damion Perdomo MD 08/26/2016 Office visit Damion Perdomo MD 08/05/2016 Laboratory MARIANA HARLEY MANAGER RECRUITING 08/02/2016 Laboratory MARIANA HARLEY MANAGER RECRUITING 07/31/2016 Office visit MARIANA HARLEY MANAGER RECRUITING 12/22/2015 Office visit MARIANA HARLEY MANAGER RECRUITING 08/29/2015 Office visit Damion Perdomo MD 08/29/2015 Office visit MARIANA HARLEY MANAGER RECRUITING 03/15/2015 Office visit MARIANA HARLEY MANAGER RECRUITING
--- OUTSIDE RECORDS SUMMARY | 2019-04-08 09:46 | XMS REPORT ---
Author Author MARIANA HARLEY Organization [facility] Address [address] [place], [place] [address] Care Team Providers Care Insole Tape Stitcher Uco Name Role Phone MARIANA HARLEY PCP MARIANA HARLEY PreferredProvider Allergies and Adverse Reactions Name Reaction Notes No known history of drug allergy Plan of Treatment Planned Activity Comments Planned Date Planned Time Plan/Goal Injection Of Immunization, Initial 11/02/2018 12:00 AM Injection of Immunization, Ea Additional 11/02/2018 12:00 AM Flu vaccine, Quadrivalent, Split Virus (single-use syringe) 11/02/2018 12: 00 AM BOOSTRIX 11/02/2018 12:00 AM Medications Active Name Start Date [...] 2 times per day for 10 days Name Start Date Expiration [...] TAKE ONE CAPSULE BY MOUTH ONCE DAILY Discontinued Name Start Date Discontinued Date SIG [...] GLYCOSYLATED HEMOGLOBIN TEST Reviewed 11/02/2018 12:00 AM PNEUMOCOCCAL VACC 13 JARVIS IM Reviewed Results Summary Date and Description Results 12/22/2015 3:17 PM TSH 1.150 uIU/mLPSA TOTAL 0.540 ng/mL 06/15/2018 9:35 AM TRIGLYCERIDES 82 CHOLESTEROL 143 HDL 36 TOT CHOL/HDL 4.0 LDL (CALC) 91 HGB A1C 5.8 Est Avg Glucose 119.8 History Of Immunizations Name Date Admin Mfg Name Mfg Code Trade Name Lot# Route Inj Vis Given Vis Pub CVX Influenza 10/06/2017 Other ornament setter OTH Flulaval quadrivalent [id number] Intramuscular Left Deltoid 10/06/2017 06/30/2015 158 Pneumococcal 11/02/2018 [facility] 13 [id number] Intramuscular Right Deltoid 11/02/2018 11/24/2017 133 Influenza 11/02/2018 ID Biomedical Zeinab or [place] BCQ Flulaval quadrivalent [id number] Intramuscular Left Deltoid 11/02/2018 11/24/2017 158 Tdap 11/02/2018 GlaxoSmithKline SKB BOOSTRIX [id number] Intramuscular Left Deltoid 11/02/2018 11/24/2017 115 History of Past Illness Name Date [...] for Tdap vaccination Nov 02 2018 10:35AM Payers Insurance Name Company Name Plan Name Plan Number Policy Number Policy Group Number Start Date [facility] [id number] Saturday, 2017 [facility] [id number] Sunday, 2015 Aetna Aetna [id number] N/A History of Encounters Visit Date Visit Type Provider 11/02/2018 Office visit MARIANA HARLEY DRAW PRESS OPERATOR 07/15/2018 Office visit MARIANA HARLEY DRAW PRESS OPERATOR 01/16/2018 Surgery Damion Perdomo MD 01/07/2018 Office visit MARIANA HARLEY DRAW PRESS OPERATOR 12/10/2017 Office visit Damion Perdomo MD 11/26/2017 Office visit MARIANA HARLEY DRAW PRESS OPERATOR 11/19/2017 Office visit Damion Perdomo MD 11/12/2017 Procedures Damion Perdomo MD 10/29/2017 Procedures Damion Perdomo MD 10/06/2017 Office visit MARIANA HARLEY DRAW PRESS OPERATOR 09/08/2017 Office visit MARIANA HARLEY DRAW PRESS OPERATOR 09/03/2017 Office visit MARIANA HARLEY DRAW PRESS OPERATOR 08/11/2017 Office visit MARIANA HARLEY DRAW PRESS OPERATOR 06/18/2017 Laboratory MARIANA HARLEY DRAW PRESS OPERATOR 06/04/2017 Laboratory MARIANA HARLEY DRAW PRESS OPERATOR 05/01/2017 Office visit MARIANA HARLEY DRAW PRESS OPERATOR 04/24/2017 Hospital Alphonse Bender MD 04/23/2017 [facility] [place] Quiroz MD 12/24/2016 Office visit MARIANA HARLEY DRAW PRESS OPERATOR 12/10/2016 Surgery Damion Perdomo MD 09/10/2016 Office visit Damion Perdomo MD 08/29/2016 Hospital Damion Perdomo MD 08/26/2016 Office visit Damion Perdomo MD 08/05/2016 Laboratory MARIANA HARLEY DRAW PRESS OPERATOR 08/02/2016 Laboratory MARIANA HARLEY DRAW PRESS OPERATOR 07/31/2016 Office visit MARIANA HARLEY DRAW PRESS OPERATOR 12/22/2015 Office visit MARIANA HARLEY DRAW PRESS OPERATOR 08/29/2015 Office visit Damion Perdomo MD 08/29/2015 Office visit MARIANA HARLEY DRAW PRESS OPERATOR 03/15/2015 Office visit MARIANA HARLEY DRAW PRESS OPERATOR
--- OUTSIDE RECORDS SUMMARY | 2019-04-08 09:46 | XMS REPORT ---
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 OTH Flulaval quadrivalent [id number] Intramuscular Left Deltoid 10/06/2017 06/30/2015 158 Pneumococcal 11/02/2018 Gjbah-Cbnusr-RfjxtciMojgan WAL PREVNAR 13 [id number] Intramuscular Right Deltoid 11/02/2018 11/24/2018 133 Influenza [...] Policy Number Policy Group Number Start Date [facility] [id number] Saturday, 2017 [facility] [id number] Sunday, 2015 Aetna Aetna [id number] N/A History of Encounters Visit Date Visit Type Provider 11/02/2018 Office visit MARIANA HARLEY FEED RESEARCH AIDE 07/15/2018 Office visit MARIANA HARLEY FEED RESEARCH AIDE 01/16/2018 Surgery Damion Perdomo MD 01/07/2018 Office visit MARIANA HARLEY FEED RESEARCH AIDE 12/10/2017 Office visit Damion Perdomo MD 11/26/2017 Office visit MARIANA HARLEY FEED RESEARCH AIDE 11/19/2017 Office visit Damion Perdomo MD 11/12/2017 Procedures Damion Perdomo MD 10/29/2017 Procedures Damion Perdomo MD 10/06/2017 Office visit MARIANA HARLEY FEED RESEARCH AIDE 09/08/2017 Office visit MARIANA HARLEY FEED RESEARCH AIDE 09/03/2017 Office visit MARIANA HARLEY FEED RESEARCH AIDE 08/11/2017 Office visit MARIANA HARLEY FEED RESEARCH AIDE 06/18/2017 Laboratory MARIANA HARLEY FEED RESEARCH AIDE 06/04/2017 Laboratory MARIANA HARLEY FEED RESEARCH AIDE 05/01/2017 Office visit MARIANA HARLEY FEED RESEARCH AIDE 04/24/2017 Hospital Alphonse Bender MD 04/23/2017 [facility] [place] Quiroz MD 12/24/2016 Office visit MARIANA HARLEY FEED RESEARCH AIDE 12/10/2016 Surgery Damion Perdomo MD 09/10/2016 Office visit Damion Perdomo MD 08/29/2016 Hospital Damion Perdomo MD 08/26/2016 Office visit Damion Perdomo MD 08/05/2016 Laboratory MARIANA HARLEY FEED RESEARCH AIDE 08/02/2016 Laboratory MARIANA HARLEY FEED RESEARCH AIDE 07/31/2016 Office visit MARIANA HARLEY FEED RESEARCH AIDE 12/22/2015 Office visit MARIANA HARLEY FEED RESEARCH AIDE 08/29/2015 Office visit Damion Perdomo MD 08/29/2015 Office visit MARIANA HARLEY FEED RESEARCH AIDE 03/15/2015 Office visit MARIANA HARLEY FEED RESEARCH AIDE
--- OUTSIDE RECORDS SUMMARY | 2019-04-08 09:47 | XMS REPORT ---
Author Author MARIANA HARLEY Organization [facility] Address [address] [place], [place] [address] Care Team Providers Care Stone Crusher Operator Name Role Phone MARIANA HARLEY PCP MARIANA HARLEY PreferredProvider Allergies and Adverse Reactions Name Reaction Notes No known history of drug allergy Plan of Treatment Planned Activity Comments Planned Date Planned Time Plan/Goal Injection Of Immunization, Initial 11/02/2018 12:00 AM Injection of Immunization, Ea Additional 11/02/2018 12:00 AM Flu vaccine, Quadrivalent, Split Virus (single-use syringe) 11/02/2018 12: 00 AM PREVNAR 13 11/02/2018 12:00 AM BOOSTRIX 11/02/2018 12:00 AM Medications Active [...] 06/08/2018 12:00 AM GLYCOSYLATED HEMOGLOBIN TEST Reviewed Results [...] Given Vis Pub CVX Influenza 10/06/2017 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 OTH Flulaval quadrivalent [id number] Intramuscular Left Deltoid 10/06/2017 06/30/2015 158 History of Past Illness Name Date of [...] Number Policy Group Number [facility] Date [id number] Saturday, 2017 [facility] [id number] Sunday, 2015 Aetna Aetna [id number] N/A History of Encounters Visit Date Visit Type Provider 11/02/2018 Office visit MARIANA HARLEY OVERHEAD GARAGE DOOR HANGER 07/15/2018 Office visit MARIANA HARLEY OVERHEAD GARAGE DOOR HANGER 01/16/2018 Surgery Damion Perdomo MD 01/07/2018 Office visit MARIANA HARLEY OVERHEAD GARAGE DOOR HANGER 12/10/2017 Office visit Damion Perdomo MD 11/26/2017 Office visit MARIANA HARLEY OVERHEAD GARAGE DOOR HANGER 11/19/2017 Office visit Damion Perdomo MD 11/12/2017 Procedures Damion Perdomo MD 10/29/2017 Procedures Damion Perdomo MD 10/06/2017 Office visit MARIANA HARLEY OVERHEAD GARAGE DOOR HANGER 09/08/2017 Office visit MARIANA HARLEY OVERHEAD GARAGE DOOR HANGER 09/03/2017 Office visit MARIANA HARLEY OVERHEAD GARAGE DOOR HANGER 08/11/2017 Office visit MARIANA HARLEY OVERHEAD GARAGE DOOR HANGER 06/18/2017 Laboratory MARIANA HARLEY OVERHEAD GARAGE DOOR HANGER 06/04/2017 Laboratory MARIANA HARLEY OVERHEAD GARAGE DOOR HANGER 05/01/2017 Office visit MARIANA HARLEY OVERHEAD GARAGE DOOR HANGER 04/24/2017 Hospital Alphonse Bender MD 04/23/2017 [facility] [place] Quiroz MD 12/24/2016 Office visit MARIANA HARLEY OVERHEAD GARAGE DOOR HANGER 12/10/2016 Surgery Damion Perdomo MD 09/10/2016 Office visit Damion Perdomo MD 08/29/2016 Hospital Damion Perdomo MD 08/26/2016 Office visit Damion Perdomo MD 08/05/2016 Laboratory MARIANA HARLEY OVERHEAD GARAGE DOOR HANGER 08/02/2016 Laboratory MARIANA HARLEY OVERHEAD GARAGE DOOR HANGER 07/31/2016 Office visit MARIANA HARLEY OVERHEAD GARAGE DOOR HANGER 12/22/2015 Office visit MARIANA HARLEY OVERHEAD GARAGE DOOR HANGER 08/29/2015 Office visit Damion Perdomo MD 08/29/2015 Office visit MARIANA HARLEY OVERHEAD GARAGE DOOR HANGER 03/15/2015 Office visit MARIANA HARLEY OVERHEAD GARAGE DOOR HANGER
--- OUTSIDE RECORDS SUMMARY | 2019-04-08 09:48 | XMS REPORT ---
Author Author MARIANA HARLEY Organization [facility] Address [address] [place], [place] [address] Care Team Providers Care Business Job Titles Name Role Phone MARIANA HARLEY PCP MARIANA [...] oral Opdivo 100 mg/10 mL intravenous solution Lancets,Ultra Thin 26 gauge miscellaneous misc 09/03/2017 Check blood sugars TID PRN dx- E11.9 Accu-Chek Leticia Plus Meter miscellaneous misc 09/03/2017 Check blood sugars TID PRN dx E11.9 Accu-Chek Leticia Plus test strp miscellaneous strip 09/03/2017 Check blood sugars TID PRN dx- E11.9 Pen Needle 32 gauge x 5/32" miscellaneous needle 09/08/2017 use as directed dx- E11.9 tamsulosin 0.4 mg oral capsule 06/15/2018 TAKE [...] TABLET BY MOUTH ONCE DAILY AT BEDTIME Name Start Date Expiration Date SIG Comments [...] inject 12 units by subcutaneous route once ACCU-CHEK LETICIA PLUS MECCA 11/25/2017 11/25/2017 USE ONE STRIP TO CHECK GLUCOSE THREE TIMES DAILY NEEDED Carafate 1 gram oral tablet 11/26/2017 take [...] HC BMI BSA BMI Percentile O2 Sat(%) 07/15/2018 2:53:00 PM 140 mmHg 78 mmHg [...] DYE Reviewed 06/08/2018 12:00 AM LIPID PANEL Returned 06/08/2018 12:00 AM GLYCOSYLATED HEMOGLOBIN TEST Returned Results Summary Date and Description Results 12/22/2015 3:17 PM TSH 1.150 uIU/mLPSA TOTAL 0.540 ng/mL History Of Immunizations Name Date Admin Mfg Name Mfg Code Trade Name Lot# Route Inj Vis Given Vis Pub CVX Influenza 10/06/2017 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 OTH Flulaval quadrivalent [id number] Intramuscular Left Deltoid [...] great toe, right Jul 15 2018 2:58PM Payers Insurance Name Company Name Plan Name Plan Number Policy Number Policy Group Number Start Date BCBS [facility] [id number] Saturday, 2017 [facility] [id number] Sunday, 2015 Melba Reilly [id number] N/A History of Encounters Visit Date Visit Type Provider 07/15/2018 Office visit MARIANA HARLEY AUTOMOTIVE PROFESSIONAL 01/16/2018 Surgery Damion Perdomo MD 01/07/2018 Office visit MARIANA HARLEY AUTOMOTIVE PROFESSIONAL 12/10/2017 Office visit Damion Perdomo MD 11/26/2017 Office visit MARIANA HARLEY AUTOMOTIVE PROFESSIONAL 11/19/2017 Office visit Damion Perdomo MD 11/12/2017 Procedures Damion Perdomo MD 10/29/2017 Procedures Damion Perdomo MD 10/06/2017 Office visit MARIANA HARLEY AUTOMOTIVE PROFESSIONAL 09/08/2017 Office visit MARIANA HARLEY AUTOMOTIVE PROFESSIONAL 09/03/2017 Office visit MARIANA HARLEY AUTOMOTIVE PROFESSIONAL 08/11/2017 Office visit MARIANA HARLEY AUTOMOTIVE PROFESSIONAL 06/18/2017 Laboratory MARIANA HARLEY AUTOMOTIVE PROFESSIONAL 06/04/2017 Laboratory MARIANA HARLEY AUTOMOTIVE PROFESSIONAL 05/01/2017 Office visit MARIANA HARLEY AUTOMOTIVE PROFESSIONAL 04/24/2017 Hospital Alphonse Bender MD 04/23/2017 [facility] [place] Quiroz MD 12/24/2016 Office visit MARIANA HARLEY AUTOMOTIVE PROFESSIONAL 12/10/2016 Surgery Damion Perdomo MD 09/10/2016 Office visit Damion Perdomo MD 08/29/2016 Hospital Damion Perdomo MD 08/26/2016 Office visit Damion Perdomo MD 08/05/2016 Laboratory MARIANA HARLEY AUTOMOTIVE PROFESSIONAL 08/02/2016 Laboratory MARIANA HARLEY AUTOMOTIVE PROFESSIONAL 07/31/2016 Office visit MARIANA HARLEY AUTOMOTIVE PROFESSIONAL 12/22/2015 Office visit MARIANA HARLEY AUTOMOTIVE PROFESSIONAL 08/29/2015 Office visit Damion Perdomo MD 08/29/2015 Office visit MARIANA HARLEY AUTOMOTIVE PROFESSIONAL 03/15/2015 Office visit MARIANA HARLEY AUTOMOTIVE PROFESSIONAL
--- OUTSIDE RECORDS SUMMARY | 2019-04-08 09:48 | XMS REPORT ---
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 OTH Flulaval quadrivalent [id number] Intramuscular Left Deltoid [...] 2018 10:01AM Cellulitis Nov 02 2018 10:01AM Payers Insurance Name Company Name Plan Name Plan Number Policy Number Policy Group Number Start Date BCBS [facility] [id number] Saturday, 2017 [facility] [id number] Sunday, 2015 Aetna Aetna [id number] N/A History of Encounters Visit Date Visit Type Provider 11/02/2018 Office visit MARIANA HARLEY HEAD GAUGE UNIT OPERATOR 07/15/2018 Office visit MARIANA HARLEY HEAD GAUGE UNIT OPERATOR 01/16/2018 Surgery Damion Perdomo MD 01/07/2018 Office visit MARIANA HARLEY HEAD GAUGE UNIT OPERATOR 12/10/2017 Office visit Damion Perdomo MD 11/26/2017 Office visit MARIANA HARLEY HEAD GAUGE UNIT OPERATOR 11/19/2017 Office visit Damion Perdomo MD 11/12/2017 Procedures Damion Perdomo MD 10/29/2017 Procedures Damion Perdomo MD 10/06/2017 Office visit MARIANA HARLEY HEAD GAUGE UNIT OPERATOR 09/08/2017 Office visit MARIANA HARLEY HEAD GAUGE UNIT OPERATOR 09/03/2017 Office visit MARIANA HARLEY HEAD GAUGE UNIT OPERATOR 08/11/2017 Office visit MARIANA HARLEY HEAD GAUGE UNIT OPERATOR 06/18/2017 Laboratory MARIANA HARLEY HEAD GAUGE UNIT OPERATOR 06/04/2017 Laboratory MARIANA HARLEY HEAD GAUGE UNIT OPERATOR 05/01/2017 Office visit MARIANA HARLEY HEAD GAUGE UNIT OPERATOR 04/24/2017 Hospital Alphonse Bender MD 04/23/2017 [facility] [place] Quiroz MD 12/24/2016 Office visit MARIANA HARLEY HEAD GAUGE UNIT OPERATOR 12/10/2016 Surgery Damion Perdomo MD 09/10/2016 Office visit Damion Perdomo MD 08/29/2016 Hospital Damion Perdomo MD 08/26/2016 Office visit Damion Perdomo MD 08/05/2016 Laboratory MARIANA HARLEY HEAD GAUGE UNIT OPERATOR 08/02/2016 Laboratory MARIANA HARLEY HEAD GAUGE UNIT OPERATOR 07/31/2016 Office visit MARIANA HARLEY HEAD GAUGE UNIT OPERATOR 12/22/2015 Office visit MARIANA HARLEY HEAD GAUGE UNIT OPERATOR 08/29/2015 Office visit Damion Perdomo MD 08/29/2015 Office visit MARIANA HARLEY HEAD GAUGE UNIT OPERATOR 03/15/2015 Office visit MARIANA HARLEY HEAD GAUGE UNIT OPERATOR
--- OUTSIDE RECORDS SUMMARY | 2019-04-08 09:49 | XMS REPORT ---
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 OTH Flulaval quadrivalent [id number] Intramuscular Left Deltoid [...] Number Policy Group Number Start Date BCBS [facility] [id number] Saturday, 2017 [facility] [id number] Sunday, 2015 Melba Reilly [id number] N/A History of Encounters Visit Date Visit Type Provider 07/15/2018 Office visit MARIANA HARLEY USER INTERFACE ARTIST 01/16/2018 Surgery Damion Perdomo MD 01/07/2018 Office visit MARIANA HARLEY USER INTERFACE ARTIST 12/10/2017 Office visit Damion Perdomo MD 11/26/2017 Office visit MARIANA HARLEY USER INTERFACE ARTIST 11/19/2017 Office visit Damion Perdomo MD 11/12/2017 Procedures Damion Perdomo MD 10/29/2017 Procedures Damion Perdomo MD 10/06/2017 Office visit MARIANA HARLEY USER INTERFACE ARTIST 09/08/2017 Office visit MARIANA HARLEY USER INTERFACE ARTIST 09/03/2017 Office visit MARIANA HARLEY USER INTERFACE ARTIST 08/11/2017 Office visit MARIANA HARLEY USER INTERFACE ARTIST 06/18/2017 Laboratory MARIANA HARLEY USER INTERFACE ARTIST 06/04/2017 Laboratory MARIANA HARLEY USER INTERFACE ARTIST 05/01/2017 Office visit MARIANA HARLEY USER INTERFACE ARTIST 04/24/2017 Hospital Alphonse Bender MD 04/23/2017 [facility] [place] Quiroz MD 12/24/2016 Office visit MARIANA HARLEY USER INTERFACE ARTIST 12/10/2016 Surgery Damion Perdomo MD 09/10/2016 Office visit Damion Perdomo MD 08/29/2016 Hospital Damion Perdomo MD 08/26/2016 Office visit Damion Perdomo MD 08/05/2016 Laboratory MARIANA HARLEY USER INTERFACE ARTIST 08/02/2016 Laboratory MARIANA HARLEY USER INTERFACE ARTIST 07/31/2016 Office visit MARIANA HARLEY USER INTERFACE ARTIST 12/22/2015 Office visit MARIANA HARLEY USER INTERFACE ARTIST 08/29/2015 Office visit Damion Perdomo MD 08/29/2015 Office visit MARIANA HARLEY USER INTERFACE ARTIST 03/15/2015 Office visit MARIANA HARLEY USER INTERFACE ARTIST
--- OUTSIDE RECORDS SUMMARY | 2019-04-08 09:50 | XMS REPORT ---
Author Author MARIANA HARLEY Organization [facility] Address [address] [place], [place] [address] Care Team Providers Care Field Crop Grower Name Role Phone MARIANA HARLEY PCP MARIANA [...] needle 09/08/2017 use as directed dx- E11.9 pravastatin 40 mg oral tablet 03/23/2018 TAKE ONE TABLET BY MOUTH ONCE DAILY AT BEDTIME tamsulosin 0.4 mg oral capsule 06/15/2018 TAKE 1 CAPSULE BY MOUTH ONCE DAILY A HALF HOUR FOLLOWING THE SAME MEAL EACH DAY Calcium 600 600 mg calcium (1,500 mg) oral tablet triamcinolone acetonide 0.5 % topical ointment 07/16/2018 apply a thin layer to the affected area(s) by topical route 3 times per day Name Start Date Expiration [...] Given Vis Pub CVX Influenza 10/06/2017 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 OTH Flulaval quadrivalent [id number] Intramuscular Left Deltoid [...] Number Policy Group Number Start Date BCBS [facility] [id number] Saturday, 2017 [facility] [id number] Sunday, 2015 Melba Reilly [id number] N/A History of Encounters Visit Date Visit Type Provider 07/15/2018 Office visit MARIANA HARLEY AUTHORIZATION NURSE 01/16/2018 Surgery Damion Perdomo MD 01/07/2018 Office visit MARIANA HARLEY AUTHORIZATION NURSE 12/10/2017 Office visit Damion Perdomo MD 11/26/2017 Office visit MARIANA HARLEY AUTHORIZATION NURSE 11/19/2017 Office visit Damion Perdomo MD 11/12/2017 Procedures Damion Perdomo MD 10/29/2017 Procedures Damion Perdomo MD 10/06/2017 Office visit MARIANA HARLEY AUTHORIZATION NURSE 09/08/2017 Office visit MARIANA HARLEY AUTHORIZATION NURSE 09/03/2017 Office visit MARIANA HARLEY AUTHORIZATION NURSE 08/11/2017 Office visit MARIANA HARLEY AUTHORIZATION NURSE 06/18/2017 Laboratory MARIANA HARLEY AUTHORIZATION NURSE 06/04/2017 Laboratory MARIANA HARLEY AUTHORIZATION NURSE 05/01/2017 Office visit MARIANA HARLEY AUTHORIZATION NURSE 04/24/2017 Hospital Alphonse Bender MD 04/23/2017 Hospital Ind[facility]a Quiroz MD 12/24/2016 Office visit MARIANA HARLEY AUTHORIZATION NURSE 12/10/2016 Surgery Damion Perdomo MD 09/10/2016 Office visit Damion Perdomo MD 08/29/2016 Hospital Damion Perdomo MD 08/26/2016 Office visit Damion Perdomo MD 08/05/2016 Laboratory MARIANA HARLEY AUTHORIZATION NURSE 08/02/2016 Laboratory MARIANA HARLEY AUTHORIZATION NURSE 07/31/2016 Office visit MARIANA HARLEY AUTHORIZATION NURSE 12/22/2015 Office visit MARIANA HARLEY AUTHORIZATION NURSE 08/29/2015 Office visit Damion Perdomo MD 08/29/2015 Office visit MARIANA HARLEY AUTHORIZATION NURSE 03/15/2015 Office visit MARIANA HARLEY AUTHORIZATION NURSE
--- OUTSIDE RECORDS SUMMARY | 2019-04-08 09:50 | XMS REPORT ---
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 OTH Flulaval quadrivalent [id number] Intramuscular Left Deltoid [...] Group Number Start Date [employer] [facility] [id number] Saturday, 2017 [facility] [id number] Sunday, 2015 Melba Reilly [id number] N/A History of Encounters Visit Date Visit Type Provider 07/15/2018 Office visit MARIANA HARLEY INSPECTOR BALANCE BRIDGE 01/16/2018 Surgery Damion Perdomo MD 01/07/2018 Office visit MARIANA HARLEY INSPECTOR BALANCE BRIDGE 12/10/2017 Office visit Damion Perdomo MD 11/26/2017 Office visit MARIANA HARLEY INSPECTOR BALANCE BRIDGE 11/19/2017 Office visit Damion Perdomo MD 11/12/2017 Procedures Damion Perdomo MD 10/29/2017 Procedures Damion Perdomo MD 10/06/2017 Office visit MARIANA HARLEY INSPECTOR BALANCE BRIDGE 09/08/2017 Office visit MARIANA HARLEY INSPECTOR BALANCE BRIDGE 09/03/2017 Office visit MARIANA HARLEY INSPECTOR BALANCE BRIDGE 08/11/2017 Office visit MARIANA HARLEY INSPECTOR BALANCE BRIDGE 06/18/2017 Laboratory MARIANA HARLEY INSPECTOR BALANCE BRIDGE 06/04/2017 Laboratory MARIANA HARLEY INSPECTOR BALANCE BRIDGE 05/01/2017 Office visit MARIANA HARLEY INSPECTOR BALANCE BRIDGE 04/24/2017 Hospital Alphonse Bender MD 04/23/2017 Hospital [place] Quiroz MD 12/24/2016 Office visit MARIANA HARLEY INSPECTOR BALANCE BRIDGE 12/10/2016 Surgery Damion Perdomo MD 09/10/2016 Office visit Damion Perdomo MD 08/29/2016 Hospital Damion Perdomo MD 08/26/2016 Office visit Damion Perdomo MD 08/05/2016 Laboratory MARIANA HARLEY INSPECTOR BALANCE BRIDGE 08/02/2016 Laboratory MARIANA HARLEY INSPECTOR BALANCE BRIDGE 07/31/2016 Office visit MARIANA HARLEY INSPECTOR BALANCE BRIDGE 12/22/2015 Office visit MARIANA HARLEY INSPECTOR BALANCE BRIDGE 08/29/2015 Office visit Damion Perdomo MD 08/29/2015 Office visit MARIANA HARLEY INSPECTOR BALANCE BRIDGE 03/15/2015 Office visit MARIANA HARLEY INSPECTOR BALANCE BRIDGE
--- OUTSIDE RECORDS SUMMARY | 2019-04-08 09:51 | XMS REPORT ---
Author Author Damion Perdomo [facility] Address [address] [place], [place] [id number] Care Team Providers Care Shrub Planter Name Role Phone Damion Perdomo PCP MARIANA HARLEY PreferredProvider Allergies and Adverse [...] per day with meals Stool Softener oral oxycodone-acetaminophen 10-325 mg oral tablet 02/12/2017 take 1 tablet by oral route every 4 hours as needed for pain Opdivo 100 mg/10 mL intravenous solution Lancets,Ultra Thin 26 gauge miscellaneous misc 09/03/2017 Check blood sugars TID PRN dx- E11.9 Accu-Chek Leticia Plus Meter miscellaneous misc 09/03/2017 Check blood sugars TID PRN dx E11.9 Accu-Chek Leticia Plus test strp miscellaneous strip 09/03/2017 Check blood sugars TID PRN dx- E11.9 morphine 15 mg oral tablet extended release 09/08/2017 take 1 tablet (15 mg) by oral route every 12 hours Pen Needle 32 gauge x 532" miscellaneous needle 09/08/2017 use as directed dx- E11.9 Carafate 1 gram oral tablet 11/26/2017 take [...] 30 days pravastatin 40 mg oral tablet 03/23/2018 TAKE ONE TABLET BY MOUTH ONCE DAILY AT BEDTIME tamsulosin 0.4 mg oral capsule 06/15/2018 TAKE 1 CAPSULE BY MOUTH ONCE DAILY A HALF HOUR FOLLOWING THE SAME MEAL EACH DAY Name Start Date Expiration Date SIG Comments [...] (1 tab) PO QD x 4 days Augmentin 875-125 mg oral tablet take 1 tablet by oral route every 12 hours Humalog [...] TO CHECK GLUCOSE THREE TIMES DAILY NEEDED pravastatin 40 mg oral tablet 01/20/2018 04/20/2018 [...] Renal cell carcinoma Active Pulmonary embolism Active Vital Signs Date Time BP-Sys(mm[Hg] BP-Lizbeth(mm[Hg]) HR(bpm) RR(rpm) Temp WT HT HC BMI BSA BMI Percentile O2 Sat(%) 01/07/2018 3:24:00 PM 122 mmHg 80 mmHg 80 bpm 16 rpm 98 F 209 lbs 76 in 25.44 kg/m 2.2547 m 96 % 12/10/2017 10:34:00 AM 122 mmHg 70 mmHg 67 bpm 16 rpm 97.5 F 221 lbs 76 in 26.90 kg/m2 2.32 m2 98 % 11/26/2017 2:53:00 PM 128 mmHg 74 mmHg 83 bpm 16 rpm 98.3 F 221 lbs 76 in 26.9007 kg/m 2.3185 m 100 % 11/19/2017 11:51:00 AM 116 mmHg 66 mmHg 62 bpm 16 rpm 97.6 F 222 lbs 76 in 27.02 kg/m2 2.32 m2 99 % 11/12/2017 10:11:00 AM 136 mmHg 82 mmHg 72 bpm 16 rpm 98.6 F 224 lbs 76 in 27.2659 kg/m 2.3342 m 99 % 10/29/2017 10:02:00 AM 136 mmHg 72 mmHg 93 bpm 16 rpm 98.6 F 224 lbs 76 in 27.27 kg/m2 2.33 m2 99 % 10/06/2017 11:01:00 AM 100 mmHg [...] Given Vis Pub CVX Influenza 10/06/2017 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 Flulaval quadrivalent [id number] Intramuscular Left Deltoid 10/06/2017 06/30/2015 158 History of Past Illness Name Date of Onset Comments Hypertension Renal cell carcinoma Pulmonary embolism Hypertension Mar 15 2015 9:54AM Sebaceous cyst [...] mellitus, type II Jun 08 2018 11:46AM Payers Insurance Name Company Name Plan Name Plan Number Policy Number Policy Group Number Start Date [facility] [id number] Saturday, 2017 [facility] [id number] Sunday, 2015 [employer] [id number] N/A History of Encounters Visit Date Visit Type Provider 01/16/2018 Surgery Damion Perdomo MD 01/07/2018 Office visit MARIANA HARLEY BENCH HAND MACHINE 12/10/2017 Office visit Damion Perdomo MD 11/26/2017 Office visit MARIANA HARLEY BENCH HAND MACHINE 11/19/2017 Office visit Damion Perdomo MD 11/12/2017 Procedures Damion Perdomo MD 10/29/2017 Procedures Damion Perdomo MD 10/06/2017 Office visit MARIANA HARLEY BENCH HAND MACHINE 09/08/2017 Office visit MARIANA HARLEY BENCH HAND MACHINE 09/03/2017 Office visit MARIANA HARLEY BENCH HAND MACHINE 08/11/2017 Office visit MARIANA HARLEY BENCH HAND MACHINE 06/18/2017 Laboratory MARIANA HARLEY BENCH HAND MACHINE 06/04/2017 Laboratory MARIANA HARLEY BENCH HAND MACHINE 05/01/2017 Office visit MARIANA HARLEY BENCH HAND MACHINE 04/24/2017 Hospital Alphonse Bender MD 04/23/2017 [facility] [place] Quiroz MD 12/24/2016 Office visit MARIANA HARLEY BENCH HAND MACHINE 12/10/2016 Surgery Damion Perdomo MD 09/10/2016 Office visit Damion Perdomo MD 08/29/2016 Hospital Damion Perdomo MD 08/26/2016 Office visit Damion Perdomo MD 08/05/2016 Laboratory MARIANA HARLEY BENCH HAND MACHINE 08/02/2016 Laboratory MARIANA HARLEY BENCH HAND MACHINE 07/31/2016 Office visit MARIANA HARLEY BENCH HAND MACHINE 12/22/2015 Office visit MARIANA HARLEY BENCH HAND MACHINE 08/29/2015 Office visit Damion Perdomo MD 08/29/2015 Office visit MARIANA HARLEY BENCH HAND MACHINE 03/15/2015 Office visit MARIANA HARLEY BENCH HAND MACHINE
--- OUTSIDE RECORDS SUMMARY | 2019-04-08 09:51 | XMS REPORT ---
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 [id number] Sunday, 2015 [employer] [id number] N/A History of Encounters Visit Date Visit Type Provider 01/16/2018 Surgery Damion Perdomo MD 01/07/2018 Office visit MARIANA HARLEY CYTOMETRY TECHNOLOGIST 12/10/2017 Office visit Damion Perdomo MD 11/26/2017 Office visit MARIANA HARLEY CYTOMETRY TECHNOLOGIST 11/19/2017 Office visit Damion Perdomo MD 11/12/2017 Procedures Damion Perdomo MD 10/29/2017 Procedures Damion Perdomo MD 10/06/2017 Office visit MARIANA HARLEY CYTOMETRY TECHNOLOGIST 09/08/2017 Office visit MARIANA HARLEY CYTOMETRY TECHNOLOGIST 09/03/2017 Office visit MARIANA HARLEY CYTOMETRY TECHNOLOGIST 08/11/2017 Office visit MARIANA HARLEY CYTOMETRY TECHNOLOGIST 06/18/2017 Laboratory MARIANA HARLEY CYTOMETRY TECHNOLOGIST 06/04/2017 Laboratory MARIANA HARLEY CYTOMETRY TECHNOLOGIST 05/01/2017 Office visit MARIANA HARLEY CYTOMETRY TECHNOLOGIST 04/24/2017 Hospital Alphonse Bender MD 04/23/2017 [facility] [place] Quiro[place] MD 12/24/2016 Office visit MARIANA HARLEY CYTOMETRY TECHNOLOGIST 12/10/2016 Surgery Damion Perdomo MD 09/10/2016 Office visit Damion Perdomo MD 08/29/2016 Hospital Damion Perdomo MD 08/26/2016 Office visit Damion Perdomo MD 08/05/2016 Laboratory MARIANA HARLEY CYTOMETRY TECHNOLOGIST 08/02/2016 Laboratory MARIANA HARLEY CYTOMETRY TECHNOLOGIST 07/31/2016 Office visit MARIANA HARLEY CYTOMETRY TECHNOLOGIST 12/22/2015 Office visit MARIANA HARLEY CYTOMETRY TECHNOLOGIST 08/29/2015 Office visit Damion Perdomo MD 08/29/2015 Office visit MARIANA HARLEY CYTOMETRY TECHNOLOGIST 03/15/2015 Office visit MARIANA HARLEY CYTOMETRY TECHNOLOGIST
--- OUTSIDE RECORDS SUMMARY | 2019-04-08 09:53 | XMS REPORT ---
Author Author MARIANA HARLEY Organization [facility] Address [address] [place], [place] [id number] Care Team Providers Care Production Assistant Name Role Phone MARIANA HARLEY PCP Unavailable Allergies and Adverse Reactions Name Reaction Notes No known history of drug allergy Plan of Treatment Not available. Medications Active Name Start Date Estimated Completion Date SIG Comments pravastatin 40 mg oral tablet 07/04/2016 take 1 tablet (40 mg) by oral route once daily at bedtime pravastatin 40 mg oral tablet 10/04/2016 TAKE ONE TABLET BY MOUTH ONCE DAILY AT BEDTIME Xarelto 15 mg oral tablet take 1 tablet (15 mg) by oral route 2 times per day with food for 21 days tamsulosin 0.4 mg oral capsule,extended release 24hr take 1 capsule ( 0.4 mg) by oral route once daily 1/2 hour following the same meal each day omeprazole 40 mg oral capsule,delayed release(DR/EC) take 1 capsule (40 mg) by oral route once daily before a meal metoprolol tartrate 50 mg oral tablet take 1 tablet (50 mg) by oral route 2 times per day with meals Aspir-81 81 mg oral tablet,delayed release (DR/EC) take 1 tablet (81 mg ) by oral route once daily Stool Softener oral omeprazole 40 mg oral capsule,delayed release(DR/EC) 01/29/2017 TAKE ONE CAPSULE BY MOUTH ONCE DAILY oxycodone-acetaminophen 10-325 mg oral tablet 02/12/2017 take 1 tablet by oral route every 4 hours as needed for pain pravastatin 40 mg oral tablet 07/29/2017 11/26/2017 TAKE ONE TABLET BY MOUTH ONCE DAILY AT BEDTIME morphine 15 mg oral tablet extended release 08/11/2017 take 1 tablet (15 mg ) by oral route every 12 hours Opdivo 100 mg/10 mL intravenous solution Name Start Date Expiration Date SIG Comments [...] (20 mg) by oral route once daily prednisone 10 mg oral tablet 12/24/2016 40mg (4 tabs) PO QD x 4 days then, 20mg (2 tabs) PO QD x 4 days then, 10mg (1 tab) PO QD x 4 days Augmentin 875-125 mg oral tablet take 1 tablet by oral route every 12 hours Problem List Description Status Onset Hypertension Active Renal cell carcinoma Active Pulmonary embolism Active Vital Signs Date Time BP-Sys(mm[Hg] BP-Lizbeth(mm[Hg]) HR(bpm) RR(rpm) Temp WT HT HC BMI BSA BMI Percentile O2 Sat(%) 08/11/2017 10:29:00 AM 126 mmHg 80 mmHg [...] Reviewed 06/18/2017 12:00 AM LIPID PANEL Returned Results Summary Date and Description Results 12/22/2015 3:17 PM TSH 1.150 uIU/mLPSA TOTAL 0.540 ng/mL History Of Immunizations Not available. History of Past Illness Name Date of [...] 10:33AM Pulmonary embolism Aug 11 2017 10:33AM Payers Insurance Name Company Name Plan Name Plan Number Policy Number Policy Group Number Start Date [employer] A[employer] [id number] N/A [facility] [id number] Sunday, 2015 History of Encounters Visit Date Visit Type Provider 08/11/2017 Office visit MARIANA HARLEY MILKING MACHINE MECHANIC 06/18/2017 Laboratory MARIANA HARLEY MILKING MACHINE MECHANIC 06/04/2017 Laboratory MARIANA HARLEY MILKING MACHINE MECHANIC 05/01/2017 Office visit MARIANA HARLEY MILKING MACHINE MECHANIC 04/24/2017 Hospital Alphonse Bender MD 04/23/2017 [facility] [place] Qu[place] MD 12/24/2016 Office visit MARIANA HARLEY MILKING MACHINE MECHANIC 12/10/2016 Surgery Damion Perdomo MD 09/10/2016 Office visit Damion Perdomo MD 08/29/2016 Hospital Damion Perdomo MD 08/26/2016 Office visit Damion Perdomo MD 08/05/2016 Laboratory MARIANA HARLEY MILKING MACHINE MECHANIC 08/02/2016 Laboratory MARIANA HARLEY MILKING MACHINE MECHANIC 07/31/2016 Office visit MARIANA HARLEY MILKING MACHINE MECHANIC 12/22/2015 Office visit MARIANA HARLEY MILKING MACHINE MECHANIC 08/29/2015 Office visit Damion Perdomo MD 08/29/2015 Office visit MARIANA HARLEY MILKING MACHINE MECHANIC 03/15/2015 Office visit MARIANA HARLEY MILKING MACHINE MECHANIC
--- OUTSIDE RECORDS SUMMARY | 2019-04-08 09:53 | XMS REPORT ---
Author Author Damion Perdomo [facility] Address [address] [facility] [address] [place], [place] [id number] Care Team Providers Care Hogshead Stock Clerk Name Role Phone Damion Perdomo PCP Unavailable Allergies and Adverse Reactions Name Reaction Notes No known history of drug allergy Plan of Treatment Not available. Medications Active Name Start Date Estimated Completion Date SIG Comments lisinopril 40 mg oral tablet 03/15/2015 take 1 tablet (40 mg) by oral route once daily Problem List Description Status Onset Hypertension Active Vital Signs Date Time BP-Sys(mm[Hg] BP-Lizbeth(mm[Hg]) HR(bpm) RR(rpm) Temp WT HT HC BMI BSA BMI Percentile O2 Sat(%) 08/29/2015 9:31:00 AM 130 mmHg 70 mmHg 87 bpm 18 rpm 97.4 F 239 lbs 76 in 29.09 kg/m2 2.41 m2 98 % 03/15/2015 9:45:00 AM 126 mmHg 58 mmHg 63 bpm 20 rpm 97.3 F 237 lbs 76 in 28.8482 kg/m 2.4009 m 97 % Social History Name Description Comments Tobacco Never smoker History of Procedures Not available. Results Summary Not available. History Of Immunizations Not available. History of Past Illness Name Date of Onset Comments Hypertension Hypertension Mar 15 2015 9:54AM Sebaceous cyst Mar 15 2015 9:54AM Tendonitis Mar 15 2015 9:54AM Abscess Of Trunk Aug 30 2015 8:49AM Hypertension Aug 29 2015 9:35AM Payers Insurance Name Company Name Plan Name Plan Number Policy Number Policy Group Number Start Date [facility] [id number] Sunday, 2015 History of Encounters Visit Date Visit Type Provider 08/29/2015 Office visit Damion Perdomo MD 08/29/2015 Office visit MARIANA HARLEY APRN 03/15/2015 Office visit MARIANA HARLEY CLINICAL PHARMACOLOGIST
--- OUTSIDE RECORDS SUMMARY | 2019-04-08 09:53 | XMS REPORT ---
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 Name Role Phone MARIANA HARLEY PCP Unavailable Allergies and Adverse Reactions Name Reaction Notes No known history of drug allergy Plan of Treatment Planned Activity Comments Planned Date Planned Time Plan/Goal .Lipid Panel 06/18/2017 12:00 AM Medications Active Name Start Date [...] oral route once daily Stool Softener oral pravastatin 40 mg oral tablet 01/14/2017 TAKE ONE TABLET BY MOUTH ONCE DAILY AT BEDTIME omeprazole 40 mg oral capsule,delayed release(DR/EC) 01/29/2017 TAKE ONE CAPSULE BY MOUTH ONCE DAILY oxycodone-acetaminophen 10-325 mg oral tablet 02/12/2017 take 1 tablet by oral route every 4 hours as needed for pain Augmentin 875-125 mg oral tablet take 1 tablet by oral route every 12 hours morphine 15 mg oral tablet extended release 06/10/2017 take 1 tablet (15 mg ) by oral route every 12 hours Name Start Date Expiration Date SIG Comments [...] (1 tab) PO QD x 4 days Problem List Description Status Onset Hypertension Active Renal cell carcinoma Active Pulmonary embolism Active Vital Signs Date Time BP-Sys(mm[Hg] BP-Lizbeth(mm[Hg]) HR(bpm) RR(rpm) Temp WT HT HC BMI BSA BMI Percentile O2 Sat(%) 05/01/2017 10:00:00 AM 124 mmHg 64 mmHg 72 bpm 16 rpm 99.6 F 235 lbs 76 in 28.60 kg/m2 2.39 m2 98 % 12/24/2016 1:42:00 PM 121 mmHg 64 mmHg 70 bpm 16 rpm 97.1 F 231 lbs 76 in 28.1179 kg/m 2.3703 m 96 % 08/26/2016 3:33:00 PM 148 mmHg 78 mmHg 99 bpm 16 rpm 96.7 F 230 lbs 76 in 28.00 kg/m2 2.37 m2 98 % 07/31/2016 9:22:00 AM 133 mmHg 64 mmHg 78 bpm 18 rpm 97.6 F 229 lbs 76 in 27.8745 kg/m 2.3601 m 98 % 12/22/2015 8:34:00 AM 130 mmHg 80 mmHg 64 bpm 16 rpm 97.1 F 242 lbs 76 in 29.46 kg/m2 2.43 m2 98 % 08/29/2015 9:31:00 AM 130 mmHg 70 mmHg 87 bpm 18 rpm 97.4 F 239 lbs 76 in 29.0917 kg/m 2.411 m 98 % 03/15/2015 9:45:00 AM 126 mmHg 58 mmHg 63 bpm 20 rpm 97.3 F 237 lbs 76 in 28.85 kg/m2 2.40 m2 97 % Social History Name Description Comments [...] 08/05/2016 12:00 AM BLOOD SMEAR INTERPRETATION Reviewed Results Summary Date and Description Results 12/22/2015 3:17 PM WBC 5.9 RBC 5.08 HGB 13.10 g/dLHCT 42.40 %MCV 84.0 fLMCH 25.80 pgMCHC 30.90 g/dLRDW SD 42 RDW CV 13.80 %MPV 10.30 fLPLT 326 NRBC# 0.00 NRBC% 0.0 %NEUT 62.10 %%LYMP 24.20 %%MONO 10.60 %%EOS 2.60 %%BASO 0.50 %#NEUT 3.64 #LYMP 1.42 #MONO 0.62 #EOS 0.15 #BASO 0.03 MANUAL DIFF NOT IND TRIGLYCERIDES 98.0 mg/dLCHOLESTEROL 207.0 mg/dLHDL 40.0 mg/dLTOT CHOL/HDL 5.2 LDL (CALC) 147.0 mg/dLGLUCOSE 106.0 mg/dLSODIUM 142.0 mmol/LPOTASSIUM 4.30 mmol/ LCHLORIDE 106.0 mmol/LCO2 25.0 mmol/LBUN 20.0 mg/dLCREATININE 1.0 mg/dLSGOT/AST 15.0 IU/LSGPT/ALT 23.0 IU/LALK PHOS 94.0 IU/LTOTAL PROTEIN 7.20 g/dLALBUMIN 4.40 g/dLTOTAL BILI 0.40 mg/dLCALCIUM 9.40 mg/dLAGE 60 GFR NonAA 77 GFR AA 93 eGFR >60 mL/min/1.73meGFR AA* >60 TSH 1.150 uIU/mLPSA TOTAL 0.540 ng/mL 08/02/2016 3:00 PM WBC 7.0 RBC 4.64 HGB 10.80 g/dLHCT 36.60 %MCV 79.0 fLMCH 23.30 pgMCHC 29.50 g/dLRDW SD 44 RDW CV 15.40 %MPV 10.0 fLPLT 341 NRBC# 0.00 NRBC% 0.0 %NEUT 65.70 %%LYMP 17.50 %%MONO 12.40 %%EOS 3.40 %%BASO 0.70 %#NEUT 4.61 #LYMP 1.23 #MONO 0.87 #EOS 0.24 #BASO 0.05 MANUAL DIFF NOT IND GLUCOSE 109.0 mg/dLSODIUM 138.0 mmol/LPOTASSIUM 4.70 mmol/LCHLORIDE 105.0 mmol/LCO2 25.0 mmol/LBUN 22.0 mg/dLCREATININE 1.0 mg/dLSGOT/AST 13.0 IU/LSGPT/ALT 21.0 IU/ LALK PHOS 88.0 IU/LTOTAL PROTEIN 6.80 g/dLALBUMIN 3.70 g/dLTOTAL BILI 0.50 mg/ dLCALCIUM 9.10 mg/dLAGE 60 GFR NonAA 77 GFR AA 93 eGFR >60 mL/min/1.73meGFR AA * >60 TRIGLYCERIDES 44.0 mg/dLCHOLESTEROL 132.0 mg/dLHDL 34.0 mg/dLTOT CHOL/HDL 3.9 LDL (CALC) 89.0 mg/dLTSH 1.030 uIU/mL 08/05/2016 9:25 AM Transferrin 222.0 mg/dLIRON TOTAL 20.0 ug/dLTransferrin 222.0 mg/dLTIBC Calculation 278 %Saturation Calc 7 08/05/2016 3:31 PM IRON TOTAL 17.0 ug/dLWBC 9.7 RBC 4.68 HGB 10.70 g/dLHCT 36.0 %MCV 77.0 fLMCH 22.90 pgMCHC 29.70 g/dLRDW SD 42 RDW CV 15.20 %MPV 9.80 fLPLT 401 NRBC# 0.00 NRBC% 0.0 %NEUT 65.10 %%LYMP 20.20 %%MONO 11.0 %%EOS 2.70 % %BASO 0.70 %#NEUT 6.32 #LYMP 1.96 #MONO 1.07 #EOS 0.26 #BASO 0.07 MANUAL DIFF SEE BELOW SEGS 66 BANDS 2 LYMPHS 22 MONOS 8 EOS 2.0 %ANISO 1+ POIK 1+ FERRITIN 523.0 ng/mL 08/20/2016 5:40 PM WBC 9.0 RBC 4.81 HGB 11.10 g/dLHCT 36.90 %MCV 77.0 fLMCH 23.10 pgMCHC 30.10 g/dLRDW SD 42 RDW CV 15.20 %MPV 8.70 fLPLT 382 NRBC# 0.00 NRBC% 0.0 %NEUT 66.60 %%LYMP 20.20 %%MONO 9.80 %%EOS 2.60 %%BASO 0.60 %#NEUT 6.01 #LYMP 1.82 #MONO 0.88 #EOS 0.23 #BASO 0.05 MANUAL DIFF NOT IND RETIC % 1.110 %RETIC # 5.34 IRF 14.9 IRON TOTAL 13.0 ug/dLTransferrin 217.0 mg/dLTIBC Calculation 271 %Saturation Calc 5 GLUCOSE 91.0 mg/dLSODIUM 140.0 mmol/ LPOTASSIUM 3.90 mmol/LCHLORIDE 104.0 mmol/LCO2 25.0 mmol/LBUN 21.0 mg/ dLCREATININE 1.0 mg/dLSGOT/AST 18.0 IU/LSGPT/ALT 31.0 IU/LALK PHOS 93.0 IU/ LTOTAL PROTEIN 8.0 g/dLALBUMIN 4.0 g/dLTOTAL BILI 0.20 mg/dLCALCIUM 9.80 mg/ dLAGE 60 GFR NonAA 77 GFR AA 93 eGFR >60 mL/min/1.73meGFR AA* >60 LDH 246.0 IU /LSEDRATE 64.0 mm/hrFERRITIN 632.0 ng/mL 08/22/2016 2:45 PM OCC BLD STOOL POSITIVE 09/04/2016 12:30 PM Free [place] Lt Chains,S 25.30 Free Lambda Lt Chains,S 21.80 [place]/Lambda Ratio,S 1.16 Immunoglobulin G, Qn,Serum 1355.0 mg/ dLImmunoglobulin A, Qn,Serum 218.0 mg/dLImmunoglobulin M, Qn,Serum 95 Protein, Total, Serum 6.9 Albumin 3.0 Uiuyu-8-Oeosihae 0.4 Cqgim-4-Zjpycplo 1.1 Beta Globulin 1.0 Gamma Globulin 1.40 g/dLM-Ronan Not Observed Globulin, Total 3.90 g /dLA/G Ratio 0.8 09/25/2016 3:18 PM SEDRATE 78.0 mm/hrANA Direct Positive Antiproteinase 3 (NH-3 )Abs <3.5 12/23/2016 1:15 PM GLUCOSE 154.0 mg/dLSODIUM 138.0 mmol/LPOTASSIUM 4.10 mmol/ LCHLORIDE 103.0 mmol/LCO2 27.0 mmol/LBUN 22.0 mg/dLCREATININE 1.40 mg/dLSGOT/ AST 11.0 IU/LSGPT/ALT 15.0 IU/LALK PHOS 112.0 IU/LTOTAL PROTEIN 7.90 g/ dLALBUMIN 3.80 g/dLTOTAL BILI 0.20 mg/dLCALCIUM 9.50 mg/dLAGE 61 GFR NonAA 52 GFR AA 63 eGFR 52 eGFR AA* >60 CHOLESTEROL 117.0 mg/dLTRIGLYCERIDES 83.0 mg/ dLWBC 8.5 RBC 5.02 HGB 11.30 g/dLHCT 38.10 %MCV 76.0 fLMCH 22.50 pgMCHC 29.70 g/ dLRDW SD 49 RDW CV 18.0 %MPV 8.40 fLPLT 363 NRBC# 0.00 NRBC% 0.0 %NEUT 72.50 %% LYMP 15.70 %%MONO 7.70 %%EOS 3.30 %%BASO 0.60 %#NEUT 6.15 #LYMP 1.33 #MONO 0.65 #EOS 0.28 #BASO 0.05 MANUAL DIFF NOT IND 12/30/2016 1:15 PM WBC 10.0 RBC 5.32 HGB 11.90 g/dLHCT 39.70 %MCV 75.0 fLMCH 22.40 pgMCHC 30.0 g/dLRDW SD 46 RDW CV 17.20 %MPV 8.80 fLPLT 344 NRBC# 0.00 NRBC % 0.0 %NEUT 62.40 %%LYMP 27.20 %%MONO 7.50 %%EOS 2.20 %%BASO 0.50 %#NEUT 6.25 # LYMP 2.73 #MONO 0.75 #EOS 0.22 #BASO 0.05 MANUAL DIFF NOT IND GLUCOSE 157.0 mg/ dLSODIUM 137.0 mmol/LPOTASSIUM 4.0 mmol/LCHLORIDE 103.0 mmol/LCO2 22.0 mmol/ LBUN 29.0 mg/dLCREATININE 1.50 mg/dLSGOT/AST 25.0 IU/LSGPT/ALT 68.0 IU/LALK PHOS 126.0 IU/LTOTAL PROTEIN 7.70 g/dLALBUMIN 3.70 g/dLTOTAL BILI 0.20 mg/ dLCALCIUM 9.50 mg/dLAGE 61 GFR NonAA 48 GFR AA 58 eGFR 48 eGFR AA* 58 01/06/2017 1:40 PM GLUCOSE 437.0 mg/dLSODIUM 133.0 mmol/LPOTASSIUM 4.80 mmol/ LCHLORIDE 99.0 mmol/LCO2 20.0 mmol/LBUN 26.0 mg/dLCREATININE 1.70 mg/dLSGOT/AST 12.0 IU/LSGPT/ALT 32.0 IU/LALK PHOS 135.0 IU/LTOTAL PROTEIN 7.50 g/dLALBUMIN 3.90 g/dLTOTAL BILI 0.30 mg/dLCALCIUM 9.10 mg/dLAGE 61 GFR NonAA 41 GFR AA 50 eGFR 41 eGFR AA* 50 WBC 5.9 RBC 5.51 HGB 12.40 g/dLHCT 40.50 %MCV 74.0 fLMCH 22.50 pgMCHC 30.60 g/dLRDW SD 43 RDW CV 16.10 %MPV 9.30 fLPLT 242 NRBC# 0.00 NRBC% 0.0 %NEUT 92.50 %%LYMP 7.10 %%MONO 0.20 %%EOS 0.0 %%BASO 0.0 %#NEUT 5.49 # LYMP 0.42 #MONO 0.01 #EOS 0.00 #BASO 0.00 MANUAL DIFF SEE BELOW SEGS 93 BANDS 3 LYMPHS 4 MICRO 1+ ANISO 1+ POIK 1+ 01/13/2017 1:15 PM GLUCOSE 203.0 mg/dLSODIUM 133.0 mmol/LPOTASSIUM 4.0 mmol/ LCHLORIDE 96.0 mmol/LCO2 23.0 mmol/LBUN 65.0 mg/dLCREATININE 3.20 mg/dLSGOT/AST 13.0 IU/LSGPT/ALT 25.0 IU/LALK PHOS 120.0 IU/LTOTAL PROTEIN 7.70 g/dLALBUMIN 3.70 g/dLTOTAL BILI 0.50 mg/dLCALCIUM 9.50 mg/dLAGE 61 GFR NonAA 20 GFR AA 24 eGFR 20 eGFR AA* 24 WBC 10.3 RBC 5.21 HGB 11.60 g/dLHCT 39.10 %MCV 75.0 fLMCH 22.30 pgMCHC 29.70 g/dLRDW SD 44 RDW CV 16.20 %MPV 9.20 fLPLT 287 NRBC# 0.00 NRBC% 0.0 %NEUT 77.90 %%LYMP 12.80 %%MONO 8.0 %%EOS 0.80 %%BASO 0.20 %#NEUT 8.03 #LYMP 1.32 #MONO 0.82 #EOS 0.08 #BASO 0.02 MANUAL DIFF NOT IND 01/20/2017 10:31 AM WBC 10.2 RBC 5.26 HGB 11.70 g/dLHCT 39.80 %MCV 76.0 fLMCH 22.20 pgMCHC 29.40 g/dLRDW SD 45 RDW CV 16.60 %MPV 9.0 fLPLT 420 NRBC# 0.00 NRBC % 0.0 %NEUT 75.0 %%LYMP 13.40 %%MONO 7.30 %%EOS 3.20 %%BASO 0.50 %#NEUT 7.67 # LYMP 1.37 #MONO 0.75 #EOS 0.33 #BASO 0.05 MANUAL DIFF NOT IND GLUCOSE 102.0 mg/ dLSODIUM 137.0 mmol/LPOTASSIUM 4.10 mmol/LCHLORIDE 106.0 mmol/LCO2 22.0 mmol/ LBUN 27.0 mg/dLCREATININE 1.30 mg/dLSGOT/AST 11.0 IU/LSGPT/ALT 15.0 IU/LALK PHOS 130.0 IU/LTOTAL PROTEIN 7.20 g/dLALBUMIN 3.50 g/dLTOTAL BILI 0.20 mg/ dLCALCIUM 8.80 mg/dLAGE 61 GFR NonAA 57 GFR AA 69 eGFR 57 eGFR AA* >60 01/27/2017 10:45 AM GLUCOSE 140.0 mg/dLSODIUM 137.0 mmol/LPOTASSIUM 5.10 mmol/ LCHLORIDE 102.0 mmol/LCO2 25.0 mmol/LBUN 32.0 mg/dLCREATININE 1.60 mg/dLSGOT/ AST 16.0 IU/LSGPT/ALT 23.0 IU/LALK PHOS 132.0 IU/LTOTAL PROTEIN 7.30 g/ dLALBUMIN 3.70 g/dLTOTAL BILI 0.20 mg/dLCALCIUM 10.30 mg/dLAGE 61 GFR NonAA 44 GFR AA 53 eGFR 44 eGFR AA* 53 WBC 10.6 RBC 5.27 HGB 11.90 g/dLHCT 40.30 %MCV 77.0 fLMCH 22.60 pgMCHC 29.50 g/dLRDW SD 47 RDW CV 17.10 %MPV 9.20 fLPLT 300 NRBC# 0.00 NRBC% 0.0 %NEUT 77.50 %%LYMP 9.70 %%MONO 9.0 %%EOS 2.50 %%BASO 0.40 % #NEUT 8.19 #LYMP 1.02 #MONO 0.95 #EOS 0.26 #BASO 0.04 MANUAL DIFF NOT IND 02/03/2017 10:30 AM WBC 8.7 RBC 5.31 HGB 12.0 g/dLHCT 41.0 %MCV 77.0 fLMCH 22.60 pgMCHC 29.30 g/dLRDW SD 49 RDW CV 18.0 %MPV 9.50 fLPLT 161 NRBC# 0.00 NRBC % 0.0 %NEUT 71.20 %%LYMP 10.30 %%MONO 9.20 %%EOS 7.90 %%BASO 0.60 %#NEUT 6.18 # LYMP 0.89 #MONO 0.80 #EOS 0.69 #BASO 0.05 MANUAL DIFF NOT IND GLUCOSE 122.0 mg/ dLSODIUM 139.0 mmol/LPOTASSIUM 4.50 mmol/LCHLORIDE 106.0 mmol/LCO2 25.0 mmol/ LBUN 25.0 mg/dLCREATININE 1.20 mg/dLSGOT/AST 17.0 IU/LSGPT/ALT 26.0 IU/LALK PHOS 119.0 IU/LTOTAL PROTEIN 6.70 g/dLALBUMIN 3.40 g/dLTOTAL BILI 0.20 mg/ dLCALCIUM 8.90 mg/dLAGE 61 GFR NonAA 62 GFR AA 75 eGFR >60 mL/min/1.73meGFR AA * >60 02/10/2017 10:05 AM WBC 6.9 RBC 4.93 HGB 11.0 g/dLHCT 38.30 %MCV 78.0 fLMCH 22.30 pgMCHC 28.70 g/dLRDW SD 51 RDW CV 18.40 %MPV 9.30 fLPLT 129 NRBC# 0.00 NRBC% 0.0 %NEUT 76.40 %%LYMP 11.30 %%MONO 9.40 %%EOS 1.90 %%BASO 0.30 %#NEUT 5.25 #LYMP 0.78 #MONO 0.65 #EOS 0.13 #BASO 0.02 MANUAL DIFF NOT IND GLUCOSE 165.0 mg/dLSODIUM 139.0 mmol/LPOTASSIUM 4.30 mmol/LCHLORIDE 105.0 mmol/LCO2 24.0 mmol/LBUN 34.0 mg/dLCREATININE 1.70 mg/dLSGOT/AST 20.0 IU/LSGPT/ALT 37.0 IU /LALK PHOS 114.0 IU/LTOTAL PROTEIN 6.50 g/dLALBUMIN 3.40 g/dLTOTAL BILI 0.20 mg/ dLCALCIUM 9.10 mg/dLAGE 61 GFR NonAA 41 GFR AA 50 eGFR 41 eGFR AA* 50 02/17/2017 8:58 AM WBC 6.0 RBC 5.08 HGB 11.60 g/dLHCT 39.90 %MCV 79.0 fLMCH 22.80 pgMCHC 29.10 g/dLRDW SD 52 RDW CV 18.40 %MPV 9.30 fLPLT 157 NRBC# 0.00 NRBC% 0.0 %NEUT 70.50 %%LYMP 14.40 %%MONO 10.60 %%EOS 3.70 %%BASO 0.50 %#NEUT 4.20 #LYMP 0.86 #MONO 0.63 #EOS 0.22 #BASO 0.03 MANUAL DIFF NOT IND GLUCOSE 110.0 mg/dLSODIUM 141.0 mmol/LPOTASSIUM 4.10 mmol/LCHLORIDE 107.0 mmol/LCO2 23.0 mmol/LBUN 26.0 mg/dLCREATININE 1.30 mg/dLSGOT/AST 24.0 IU/LSGPT/ALT 40.0 IU /LALK PHOS 94.0 IU/LTOTAL PROTEIN 7.10 g/dLALBUMIN 3.70 g/dLTOTAL BILI 0.30 mg/ dLCALCIUM 9.40 mg/dLAGE 61 GFR NonAA 57 GFR AA 69 eGFR 57 eGFR AA* >60 02/24/2017 10:35 AM GLUCOSE 232.0 mg/dLSODIUM 138.0 mmol/LPOTASSIUM 4.20 mmol/ LCHLORIDE 106.0 mmol/LCO2 23.0 mmol/LBUN 22.0 mg/dLCREATININE 1.40 mg/dLSGOT/ AST 19.0 IU/LSGPT/ALT 29.0 IU/LALK PHOS 96.0 IU/LTOTAL PROTEIN 6.70 g/dLALBUMIN 3.50 g/dLTOTAL BILI 0.20 mg/dLCALCIUM 9.0 mg/dLAGE 61 GFR NonAA 52 GFR AA 63 eGFR 52 eGFR AA* >60 WBC 7.8 RBC 4.88 HGB 11.20 g/dLHCT 38.10 %MCV 78.0 fLMCH 23.0 pgMCHC 29.40 g/dLRDW SD 52 RDW CV 18.60 %MPV 9.40 fLPLT 195 NRBC# 0.00 NRBC % 0.0 %NEUT 84.0 %%LYMP 4.40 %%MONO 9.70 %%EOS 0.90 %%BASO 0.50 %#NEUT 6.52 # LYMP 0.34 #MONO 0.75 #EOS 0.07 #BASO 0.04 MANUAL DIFF SEE BELOW SEGS 83 BANDS 5 LYMPHS 4 MONOS 7 EOS 1.0 %ANISO 1+ POIK 1+ 03/19/2017 10:15 AM WBC 11.1 RBC 4.42 HGB 10.30 g/dLHCT 34.70 %MCV 79.0 fLMCH 23.30 pgMCHC 29.70 g/dLRDW SD 54 RDW CV 19.10 %MPV 8.70 fLPLT 277 NRBC# 0.00 NRBC% 0.0 %NEUT 76.70 %%LYMP 5.40 %%MONO 14.60 %%EOS 1.80 %%BASO 0.50 %#NEUT 8.53 #LYMP 0.60 #MONO 1.62 #EOS 0.20 #BASO 0.06 MANUAL DIFF SEE BELOW SEGS 73 BANDS 2 LYMPHS 7 MONOS 14 EOS 4.0 %GLUCOSE 153.0 mg/dLSODIUM 137.0 mmol/ LPOTASSIUM 4.40 mmol/LCHLORIDE 105.0 mmol/LCO2 22.0 mmol/LBUN 26.0 mg/ dLCREATININE 1.40 mg/dLSGOT/AST 17.0 IU/LSGPT/ALT 18.0 IU/LALK PHOS 112.0 IU/ LTOTAL PROTEIN 7.0 g/dLALBUMIN 3.50 g/dLTOTAL BILI 0.30 mg/dLCALCIUM 9.10 mg/ dLAGE 61 GFR NonAA 52 GFR AA 63 eGFR 52 eGFR AA* >60 04/22/2017 10:10 AM WBC 11.1 RBC 3.91 HGB 8.80 g/dLHCT 30.90 %MCV 79.0 [facility] 22.50 [facility] 28.[facility] g/dLRDW SD 53 RDW CV 18.40 %MPV 8.70 fLPLT 353 NRBC# 0.00 NRBC% 0.0 %NEUT 76.10 %%LYMP 9.30 %%MONO 11.30 %%EOS 2.40 %%BASO 0.40 %#NEUT 8.45 #LYMP 1.03 #MONO 1.25 #EOS 0.27 #BASO 0.04 MANUAL DIFF NOT IND GLUCOSE 126.0 mg/dLSODIUM 141.0 mmol/LPOTASSIUM 4.70 mmol/LCHLORIDE 109.0 mmol/LCO2 23.0 mmol/LBUN 51.0 mg/dLCREATININE 1.60 mg/dLSGOT/AST 19.0 IU/LSGPT/ALT 21.0 IU /LALK PHOS 126.0 IU/LTOTAL PROTEIN 7.70 g/dLALBUMIN 3.50 g/dLTOTAL BILI 0.30 mg/ dLCALCIUM 9.80 mg/dLAGE 61 GFR NonAA 44 GFR AA 53 eGFR 44 eGFR AA* 53 04/29/2017 1:54 PM IRON TOTAL 8.0 ug/dLTransferrin 186.0 mg/dLTIBC Calculation 233 %Saturation Calc 3 FERRITIN 428.0 ng/mL 04/30/2017 12:25 PM WBC 11.4 RBC 3.66 HGB 8.20 g/dLHCT 28.40 %MCV 78.0 fLMCH 22.40 pgMCHC 28.90 g/dLRDW SD 50 RDW CV 17.80 %MPV 8.60 fLPLT 389 NRBC# 0.00 NRBC% 0.0 %NEUT 89.10 %%LYMP 3.80 %%MONO 5.40 %%EOS 0.40 %%BASO 0.30 %#NEUT 10.13 #LYMP 0.43 #MONO 0.61 #EOS 0.04 #BASO 0.03 MANUAL DIFF SEE BELOW SEGS 95 BANDS 1 LYMPHS 1 MONOS 3 MICRO 1+ POLYCHROMASIA 1+ 05/14/2017 10:45 AM GLUCOSE 248.0 mg/dLSODIUM 137.0 mmol/LPOTASSIUM 4.10 mmol/ LCHLORIDE 102.0 mmol/LCO2 25.0 mmol/LBUN 22.0 mg/dLCREATININE 1.10 mg/dLSGOT/ AST 15.0 IU/LSGPT/ALT 31.0 IU/LALK PHOS 137.0 IU/LTOTAL PROTEIN 6.20 g/ dLALBUMIN 3.20 g/dLTOTAL BILI 0.20 mg/dLCALCIUM 8.70 mg/dLAGE 61 GFR NonAA 69 GFR AA 84 eGFR >60 mL/min/1.73meGFR AA* >60 05/21/2017 7:50 AM WBC 12.1 RBC 3.61 HGB 8.0 g/dLHCT 27.50 %MCV 76.0 fLMCH 22.20 pgMCHC 29.10 g/dLRDW SD 52 RDW CV 18.90 %MPV 9.20 fLPLT 443 NRBC# 0.00 NRBC% 0.0 %NEUT 79.50 %%LYMP 8.30 %%MONO 9.20 %%EOS 1.10 %%BASO 0.70 %#NEUT 9.63 #LYMP 1.01 #MONO 1.11 #EOS 0.13 #BASO 0.09 MANUAL DIFF NOT IND GLUCOSE 226.0 mg/dLSODIUM 135.0 mmol/LPOTASSIUM 3.70 mmol/LCHLORIDE 100.0 mmol/LCO2 25.0 mmol/LBUN 22.0 mg/dLCREATININE 1.20 mg/dLSGOT/AST 21.0 IU/LSGPT/ALT 27.0 IU /LALK PHOS 125.0 IU/LTOTAL PROTEIN 6.70 g/dLALBUMIN 3.0 g/dLTOTAL BILI 0.30 mg/ dLCALCIUM 9.10 mg/dLAGE 61 GFR NonAA 62 GFR AA 75 eGFR >60 mL/min/1.73meGFR AA * >60 06/11/2017 10:52 AM WBC 10.1 RBC 3.45 HGB 7.20 g/dLHCT 25.80 %MCV 75.0 fLMCH 20.90 pgMCHC 27.90 g/dLRDW SD 52 RDW CV 19.20 %MPV 9.60 fLPLT 490 NRBC# 0.00 NRBC% 0.0 %NEUT 82.60 %%LYMP 8.90 %%MONO 7.20 %%EOS 0.50 %%BASO 0.20 %#NEUT 8.34 #LYMP 0.90 #MONO 0.73 #EOS 0.05 #BASO 0.02 MANUAL DIFF NOT IND History Of Immunizations Not available. History of [...] 2017 9:47AM Hypertension Jun 18 2017 10:08AM Payers Insurance Name Company Name Plan Name Plan Number Policy Number Policy Group Number Start Date [facility] [id number] Sunday, 2015 History of Encounters Visit Date Visit Type Provider 06/18/2017 Laboratory MARIANA HARLEY BABY FORMULA WORKER 06/04/2017 Laboratory MARIANA HARLEY BABY FORMULA WORKER 05/01/2017 Office visit MARIANA HARLEY BABY FORMULA WORKER 04/24/2017 [facility] Alphonse Bender MD 12/24/2016 Office visit MARIANA HARLEY BABY FORMULA WORKER 12/10/2016 Surgery Damion Perdomo MD 09/10/2016 Office visit Damion Perdomo MD 08/29/2016 Hospital Damion Perdomo MD 08/26/2016 Office visit Damion Perdomo MD 08/05/2016 Laboratory MARIANA HARLEY BABY FORMULA WORKER 08/02/2016 Laboratory MARIANA HARLEY BABY FORMULA WORKER 07/31/2016 Office visit MARIANA HARLEY BABY FORMULA WORKER 12/22/2015 Office visit MARIANA HARLEY BABY FORMULA WORKER 08/29/2015 Office visit Damion Perdomo MD 08/29/2015 Office visit MARIANA HARLEY BABY FORMULA WORKER 03/15/2015 Office visit MARIANA HARLEY BABY FORMULA WORKER
--- OUTSIDE RECORDS SUMMARY | 2019-04-08 09:53 | XMS REPORT ---
Author Author MARIANA HARLEY Organization [facility] Address [address] [place], [place] [id number] Care Team Providers Care Investigative Analyst Name Role Phone MARIANA HARLEY PCP Unavailable [...] Policy Group Number Start Date [employer] [id number] N/A [facility] [id number] Sunday, 2015 History of Encounters Visit Date Visit Type Provider 08/11/2017 Office visit MARIANA HARLEY SYSTEM TRAINER 06/18/2017 Laboratory MARIANA HARLEY SYSTEM TRAINER 06/04/2017 Laboratory MARIANA HARLEY SYSTEM TRAINER 05/01/2017 Office visit MARIANA HARLEY SYSTEM TRAINER 04/24/2017 Hospital Alphonse Bender MD 04/23/2017 Hospital [place] Quiroz MD 12/24/2016 Office visit MARIANA HARLEY SYSTEM TRAINER 12/10/2016 Surgery Damion Perdomo MD 09/10/2016 Office visit Damion Perdomo MD 08/29/2016 Hospital Damion Perdomo MD 08/26/2016 Office visit Damion Perdomo MD 08/05/2016 Laboratory MARIANA HARLEY SYSTEM TRAINER 08/02/2016 Laboratory MARIANA HARLEY SYSTEM TRAINER 07/31/2016 Office visit MARIANA HARLEY SYSTEM TRAINER 12/22/2015 Office visit MARIANA HARLEY SYSTEM TRAINER 08/29/2015 Office visit Damion Perdomo MD 08/29/2015 Office visit MARIANA HARLEY SYSTEM TRAINER 03/15/2015 Office visit MARIANA HARLEY SYSTEM TRAINER
--- OUTSIDE RECORDS SUMMARY | 2019-04-08 09:54 | XMS REPORT ---
Author Author MARIANA HARLEY Organization [facility] Address [address] [place], [place] [id number] Care Team Providers Care Metal Bonder Name Role Phone MARIANA HARLEY PCP Unavailable [...] per day with food for 21 days omeprazole 40 mg oral capsule,delayed release(DR/EC) take [...] TABLET BY MOUTH ONCE DAILY AT BEDTIME Opdivo 100 mg/10 mL intravenous solution tamsulosin 0.4 mg oral capsule,extended release 24hr 08/18/2017 take 1 capsule (0.4 mg) by oral route once daily 1/2 hour following the same meal each day Lancets,Ultra Thin 26 gauge miscellaneous [facility] 09/03/2017 Check blood sugars TID PRN dx- E11.9 Accu-Chek Leticia Plus Meter miscellaneous [facility] 09/03/2017 Check blood sugars TID PRN dx E11.9 Accu-Chek Leticia Plus test strp miscellaneous strip 09/03/2017 Check blood sugars TID PRN dx- E11.9 morphine 15 mg oral tablet extended release 09/08/2017 take 1 tablet (15 mg) by oral route every 12 hours Pen Needle 32 gauge x " miscellaneous needle 09/08/2017 use as directed dx- E11.9 Name Start Date Expiration Date SIG Comments [...] HC BMI BSA BMI Percentile O2 Sat(%) 09/08/2017 1:50:00 PM 110 mmHg 68 mmHg [...] 2017 1:09PM Diabetes Sep 08 2017 1:54PM Payers Insurance Name Company Name Plan Name Plan Number Policy Number Policy Group Number Start Date [employer] [id number] N/A [facility] [id number] Sunday, 2015 History of Encounters Visit Date Visit Type Provider 09/08/2017 Office visit MARIANA HARLEY ASSISTED LIVING COORDINATOR 09/03/2017 Office visit MARIANA HARLEY ASSISTED LIVING COORDINATOR 08/11/2017 Office visit MARIANA HARLEY ASSISTED LIVING COORDINATOR 06/18/2017 Laboratory MARIANA HARLEY ASSISTED LIVING COORDINATOR 06/04/2017 Laboratory MARIANA HARLEY ASSISTED LIVING COORDINATOR 05/01/2017 Office visit MARIANA HARLEY ASSISTED LIVING COORDINATOR 04/24/2017 Hospital Alphonse Bender MD 04/23/2017 Hospital [place] Quiroz MD 12/24/2016 Office visit MARIANA HARLEY ASSISTED LIVING COORDINATOR 12/10/2016 Surgery Damion Perdomo MD 09/10/2016 Office visit Damion Perdomo MD 08/29/2016 Hospital Damion Perdomo MD 08/26/2016 Office visit Damion Perdomo MD 08/05/2016 Laboratory MARIANA HARLEY ASSISTED LIVING COORDINATOR 08/02/2016 Laboratory MARIANA HARLEY ASSISTED LIVING COORDINATOR 07/31/2016 Office visit MARIANA HARLEY ASSISTED LIVING COORDINATOR 12/22/2015 Office visit MARIANA HARLEY ASSISTED LIVING COORDINATOR 08/29/2015 Office visit Damion Perdomo MD 08/29/2015 Office visit MARIANA HARLEY ASSISTED LIVING COORDINATOR 03/15/2015 Office visit MARIANA HARLEY ASSISTED LIVING COORDINATOR
--- OUTSIDE RECORDS SUMMARY | 2019-04-08 09:54 | XMS REPORT ---
Author Author MARIANA HARLEY Organization [facility] Address [address] [place], [place] [id number] Care Team Providers Care Sweat Band Separator Name Role Phone MARIANA HARLEY PCP Unavailable Allergies and Adverse Reactions Name Reaction Notes No known history of drug allergy Plan of Treatment Planned Activity Comments Planned Date Planned Time Plan/Goal LIPID PANEL 12/22/2015 12:00 AM LIPID PANEL 08/02/2016 12:00 AM GENERAL HEALTH PANEL 08/02/2016 12:00 AM Medications Active Name Start Date Estimated Completion Date SIG Comments Jublia 10 % topical [...] (40 mg) by oral route once daily pravastatin 40 mg oral tablet 07/04/2016 take 1 tablet (40 mg) by oral route once daily at bedtime Problem List Description Status Onset Hypertension Active Vital Signs Date Time BP-Sys(mm[Hg] BP-Lizbeth(mm[Hg]) HR(bpm) RR(rpm) Temp WT HT HC BMI BSA BMI Percentile O2 Sat(%) 07/31/2016 9:22:00 AM 133 mmHg 64 mmHg [...] Status 12/22/2015 12:00 AM GENERAL HEALTH PANEL Returned 12/22/2015 12:00 AM Prostate Cancer Screening Returned Results Summary Data and Description Results 12/22/2015 3:17 PM WBC 5.9 RBC 5.08 HGB 13.10 g/dLHCT 42.40 %MCV 84.0 fLMCH 25.80 pgMCHC 30.90 g/dLRDW CV 13.80 %MPV 10.30 fLPLT 326 %NEUT 62.10 %%LYMP 24.20 %%MONO 10.60 %%EOS 2.60 %%BASO 0.50 %#NEUT 3.64 #LYMP 1.42 #MONO 0.62 # EOS 0.15 #BASO 0.03 TRIGLYCERIDES 98.0 mg/dLCHOLESTEROL 207.0 mg/dLHDL 40.0 mg/ dLLDL (CALC) 147.0 mg/dLGLUCOSE 106.0 mg/dLSODIUM 142.0 mmol/LPOTASSIUM 4.30 mmol/LCHLORIDE 106.0 mmol/LCO2 25.0 mmol/LBUN 20.0 mg/dLCREATININE 1.0 mg/dLSGOT /AST 15.0 IU/LSGPT/ALT 23.0 IU/LALK PHOS 94.0 IU/LTOTAL PROTEIN 7.20 g/ dLALBUMIN 4.40 g/dLTOTAL BILI 0.40 mg/dLCALCIUM 9.40 mg/dLeGFR >60 mL/min/1.73m TSH 1.150 uIU/mLPSA TOTAL 0.540 ng/mL History [...] 2015 8:38AM Hypertension Aug 02 2016 8:29AM Payers Insurance Name Company Name Plan Name Plan Number Policy Number Policy Group Number Start Date [facility] [id number] Sunday, 2015 History of Encounters Visit Date Visit Type Provider 08/02/2016 Laboratory MARIANA HARLEY [employer] 07/31/2016 Office visit MARIANA HARLEY [employer] 12/22/2015 Office visit MARIANA HARLEY [employer] 08/29/2015 Office visit Damion Perdomo MD 08/29/2015 Office visit MARIANA HARLEY [employer] 03/15/2015 Office visit MARIANA HARLEY [employer]
--- OUTSIDE RECORDS SUMMARY | 2019-04-08 09:54 | XMS REPORT ---
Author Author Damion Perdomo [facility] Address [address] [place], [place] [id number] Care Team Providers Care Map Compiler Name Role Phone Damion Perdomo PCP MARIANA HARLEY PreferredProvider Allergies and Adverse Reactions Name Reaction Notes No known history of drug allergy Plan of Treatment Planned Activity Comments Planned Date Planned Time Plan/Goal Injection Of Immunization, Initial 10/06/2017 12:00 AM Medications Active Name Start Date [...] 12 hours Pen Needle 32 gauge x 5/32" miscellaneous needle 09/08/2017 use as directed dx- E11.9 Lasix 40 mg oral tablet 10/07/2017 take 1 tablet by oral route daily as needed Klor-Con 10 10 mEq oral tablet extended release 10/07/2017 take 1 tablet by oral route daily as needed pravastatin 40 mg oral tablet 10/24/2017 01/22/2018 TAKE ONE TABLET BY MOUTH ONCE DAILY AT BEDTIME Carafate 1 gram oral tablet 11/26/2017 take [...] meals and at bedtime for 30 days tamsulosin 0.4 mg oral capsule,extended release 24hr 12/22/2017 take 1 capsule (0.4 mg) by oral route once daily 1/2 hour following the same meal each day Name Start Date Expiration Date SIG [...] per prescriber's instructions. Insulin dosing requires individualization. Levemir FlexTouch 100 unit/mL (3 mL) subcutaneous insulin pen 10/20/2017 inject 12 units by subcutaneous route once ACCU-CHEK LETICIA PLUS MECCA 11/25/2017 11/25/2017 USE ONE STRIP TO CHECK GLUCOSE THREE TIMES DAILY NEEDED Discontinued Name Start Date Discontinued Date SIG Comments omeprazole 40 mg oral capsule,delayed release(DR/EC) take 1 capsule (40 mg) by oral route once daily before a meal omeprazole 40 mg oral capsule,delayed release(DR/EC) 01/29/2017 12/11/2017 TAKE ONE CAPSULE BY MOUTH ONCE DAILY Novolog Flexpen 100 unit/mL subcutaneous insulin pen [...] HC BMI BSA BMI Percentile O2 Sat(%) 12/10/2017 10:34:00 AM 122 mmHg 70 mmHg [...] F 242 lbs 76 in 29.46 kg/m2 2.4261 m 98 % 08/29/2015 9:31:00 AM 130 mmHg 70 mmHg 87 bpm 18 rpm 97.4 F 239 lbs 76 in 29.0917 kg/m 2.41 m2 98 % 03/15/2015 9:45:00 AM 126 mmHg 58 mmHg 63 bpm 20 rpm 97.3 F 237 lbs 76 in 28.85 kg/m2 2.4009 m 97 % Social History Name [...] AM LIPID PANEL Returned 10/06/2017 12:00 AM FLU VAC NO PRSV 4 JARVIS 3 YRS+ Reviewed 10/06/2017 12:00 AM GENERAL HEALTH PANEL Returned 10/29/2017 12:00 AM CULTURE OTHR SPECIMN AEROBIC Returned Results Summary Date and Description Results 12/22/2015 3:17 PM TSH 1.150 uIU/mLPSA TOTAL 0.540 ng/mL History Of Immunizations Name Date Admin Mfg Name Mfg Code Trade Name Lot# Route Inj Vis Given Vis Pub CVX Influenza 10/06/2017 Other bagman/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 OTH Flulaval Quadrivalent [id number] Intramuscular Left Deltoid 10/06/2017 06/30/2015 158 [...] 2:58PM Epigastric pain Dec 10 2017 10:35AM Payers Insurance Name Company Name Plan Name Plan Number Policy Number Policy Group Number Start Date [employer] [facility] [id number] Saturday, 2017 [facility] [id number] Sunday, 2015 Aetna Aetna [id number] N/A History of Encounters Visit Date Visit Type Provider 12/10/2017 Office visit Damion Perdomo MD 11/26/2017 Office visit MARIANA HARLEY TRIPE SCRAPER 11/19/2017 Office visit Damion Perdomo MD 11/12/2017 Procedures Damion Perdomo MD 10/29/2017 Procedures Damion Perdomo MD 10/06/2017 Office visit MARIANA HARLEY TRIPE SCRAPER 09/08/2017 Office visit MARIANA HARLEY TRIPE SCRAPER 09/03/2017 Office visit MARIANA HARLEY TRIPE SCRAPER 08/11/2017 Office visit MARIANA HARLEY TRIPE SCRAPER 06/18/2017 Laboratory MARIANA HARLEY TRIPE SCRAPER 06/04/2017 Laboratory MARIANA HARLEY TRIPE SCRAPER 05/01/2017 Office visit MARIANA HARLEY TRIPE SCRAPER 04/24/2017 Hospital Alphonse Bender MD 04/23/2017 Hospital [place] Quiroz MD 12/24/2016 Office visit MARIANA HARLEY TRIPE SCRAPER 12/10/2016 Surgery Damion Perdomo MD 09/10/2016 Office visit Damion Perdomo MD 08/29/2016 Hospital Damion Perdomo MD 08/26/2016 Office visit Damion Perdomo MD 08/05/2016 Laboratory MARIANA HARLEY TRIPE SCRAPER 08/02/2016 Laboratory MARIANA HARLEY TRIPE SCRAPER 07/31/2016 Office visit MARIANA HARLEY TRIPE SCRAPER 12/22/2015 Office visit MARIANA HARLEY TRIPE SCRAPER 08/29/2015 Office visit Damion Perdomo MD 08/29/2015 Office visit MARIANA HARLEY TRIPE SCRAPER 03/15/2015 Office visit MARIANA HARLEY APRN
--- OUTSIDE RECORDS SUMMARY | 2019-04-08 09:55 | XMS REPORT ---
Author Author MARIANA HARLEY Organization [facility] Address [address] [place], [place] [id number] Care Team Providers Care Patient Financial Services Specialist Name Role Phone MARIANA HARLEY PCP Unavailable [...] each day Lancets,Ultra Thin 26 gauge miscellaneous [facility] 09/03/2017 Check blood sugars TID PRN dx- E11.9 Accu-Chek Leticia Plus Meter miscellaneous [facility] 09/03/2017 Check blood sugars TID PRN dx E11.9 Accu-Chek Leticia Plus test strp miscellaneous strip 09/03/2017 Check blood sugars TID PRN dx- E11.9 morphine 15 mg oral tablet extended release 09/08/2017 take 1 tablet (15 mg) by oral route every 12 hours Pen Needle 32 gauge x " miscellaneous needle 09/08/2017 use as directed dx- E11.9 Humalog KwikPen 100 unit/mL subcutaneous insulin pen 09/18/2017 inject by subcutaneous route per prescriber's instructions. Insulin dosing requires individualization. Name Start Date Expiration Date SIG Comments [...] tablet by oral route every 12 hours Discontinued Name Start Date Discontinued Date SIG Comments Novolog Flexpen 100 unit/mL subcutaneous insulin pen 09/18/2017 09/18/2017 inject by subcutaneous route per prescriber's instructions. Insulin dosing requires individualization. Problem List Description Status Onset Hypertension Active [...] Policy Group Number Start Date Aetna Aetna [id number] N/A [facility] [id number] Sunday, 2015 History of Encounters Visit Date Visit Type Provider 09/08/2017 Office visit MARIANA HARLEY SPIN TABLE OPERATOR 09/03/2017 Office visit MARIANA HARLEY SPIN TABLE OPERATOR 08/11/2017 Office visit MARIANA HARLEY SPIN TABLE OPERATOR 06/18/2017 Laboratory MARIANA HARLEY SPIN TABLE OPERATOR 06/04/2017 Laboratory MARIANA HARLEY SPIN TABLE OPERATOR 05/01/2017 Office visit MARIANA HARLEY SPIN TABLE OPERATOR 04/24/2017 Hospital Alphonse Bender MD 04/23/2017 Hospital [place] Quiroz MD 12/24/2016 Office visit MARIANA HARLEY SPIN TABLE OPERATOR 12/10/2016 Surgery Damion Perdomo MD 09/10/2016 Office visit Damion Perdomo MD 08/29/2016 Hospital Damion Perdomo MD 08/26/2016 Office visit Damion Perdomo MD 08/05/2016 Laboratory MARIANA HARLEY SPIN TABLE OPERATOR 08/02/2016 Laboratory MARIANA HARLEY SPIN TABLE OPERATOR 07/31/2016 Office visit MARIANA HARLEY SPIN TABLE OPERATOR 12/22/2015 Office visit MARIANA HARLEY SPIN TABLE OPERATOR 08/29/2015 Office visit Damion Perdomo MD 08/29/2015 Office visit MARIANA HARLEY SPIN TABLE OPERATOR 03/15/2015 Office visit MARIANA HARLEY SPIN TABLE OPERATOR
--- OUTSIDE RECORDS SUMMARY | 2019-04-08 09:55 | XMS REPORT ---
Author Author MARIANA HARLEY Organization [facility] Address [address] [place], [place] [id number] Care Team Providers Care Buckle Gluer Name Role Phone MARIANA HARLEY PCP Unavailable [...] ) by oral route every 12 hours pravastatin 40 mg oral tablet 07/29/2017 11/26/2017 [...] Policy Group Number Start Date Aetna Aetna [id number] N/A [facility] [id number] Sunday, 2015 History of Encounters Visit Date Visit Type Provider 06/18/2017 Laboratory MARIANA HARLEY EXPLOSIVE MAN 06/04/2017 Laboratory MARIANA HARLEY EXPLOSIVE MAN 05/01/2017 Office visit MARIANA HARLEY EXPLOSIVE MAN 04/24/2017 Hospital Alphonse Bender MD 04/23/2017 Hospital [place] Quiroz MD 12/24/2016 Office visit MARIANA HARLEY EXPLOSIVE MAN 12/10/2016 Surgery Damion Perdomo MD 09/10/2016 Office visit Damion Perdomo MD 08/29/2016 Hospital Damion Perdomo MD 08/26/2016 Office visit Damion Perdomo MD 08/05/2016 Laboratory MARIANA HARLEY EXPLOSIVE MAN 08/02/2016 Laboratory MARIANA HARLEY EXPLOSIVE MAN 07/31/2016 Office visit MARIANA HARLEY EXPLOSIVE MAN 12/22/2015 Office visit MARIANA HARLEY EXPLOSIVE MAN 08/29/2015 Office visit Damion Perdomo MD 08/29/2015 Office visit MARIANA HARLEY EXPLOSIVE MAN 03/15/2015 Office visit MARIANA HARLEY EXPLOSIVE MAN
--- OUTSIDE RECORDS SUMMARY | 2019-04-08 09:56 | XMS REPORT ---
Author Author MARIANA HARLEY Organization [facility] Address [address] [place], [place] [id number] Care Team Providers Care Driver Examiner Name Role Phone MARIANA HARLEY PCP MARIANA [...] per day with meals Stool Softener oral omeprazole 40 mg oral capsule,delayed release(DR/EC) 01/29/2017 TAKE ONE CAPSULE BY MOUTH ONCE DAILY oxycodone-acetaminophen 10-325 mg oral tablet 02/12/2017 take 1 tablet by oral route every 4 hours as needed for pain Opdivo 100 mg/10 mL intravenous solution tamsulosin 0.4 mg oral capsule,extended release 24hr 08/18/2017 take 1 capsule (0.4 mg) by oral route once daily 1/2 hour following the same meal each day Lancets,Ultra Thin 26 gauge miscellaneous misc 09/03/2017 [...] 1 hour before meals and at bedtime Name Start Date Expiration Date SIG Comments [...] HC BMI BSA BMI Percentile O2 Sat(%) 11/26/2017 2:53:00 PM 128 mmHg 74 mmHg [...] lbs 76 in 25.44 kg/m 2.2547 m 99 % 09/03/2017 1:06:00 PM 116 mmHg 76 mmHg 78 bpm 16 rpm 98.9 F 207 lbs 76 in 25.20 kg/m2 2.24 m2 97 % 08/11/2017 10:29:00 AM 126 mmHg 80 mmHg 102 bpm 16 rpm 98.9 F 205 lbs 76 in 24.9531 kg/m 2.233 m 96 % 05/01/2017 10:00:00 AM 124 mmHg [...] Given Vis Pub CVX Influenza 10/06/2017 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 OTH Flulaval Quadrivalent [id number] Intramuscular Left Deltoid [...] 2:58PM Pulmonary embolism Nov 26 2017 2:58PM Payers Insurance Name Company Name Plan Name Plan Number Policy Number Policy Group Number Start Date [employer] [id number] Saturday, 2017 [facility] [id number] Sunday, 2015 Melba Reilly [id number] N/A History of Encounters Visit Date Visit Type Provider 11/26/2017 Office visit MARIANA HARLEY DIRECTOR DIGITAL MARKETING 11/19/2017 Office visit Damion Perdomo MD 11/12/2017 Procedures Damion Perdomo MD 10/29/2017 Procedures Damion Perdomo MD 10/06/2017 Office visit MARIANA HARLEY DIRECTOR DIGITAL MARKETING 09/08/2017 Office visit MARIANA HARLEY DIRECTOR DIGITAL MARKETING 09/03/2017 Office visit MARIANA HARLEY DIRECTOR DIGITAL MARKETING 08/11/2017 Office visit MARIANA HARLEY DIRECTOR DIGITAL MARKETING 06/18/2017 Laboratory MARIANA HARLEY DIRECTOR DIGITAL MARKETING 06/04/2017 Laboratory MARIANA HARLEY DIRECTOR DIGITAL MARKETING 05/01/2017 Office visit MARIANA HARLEY DIRECTOR DIGITAL MARKETING 04/24/2017 Hospital Alphonse Bender MD 04/23/2017 [facility] [place] Quiroz MD 12/24/2016 Office visit MARIANA HARLEY DIRECTOR DIGITAL MARKETING 12/10/2016 Surgery Damion Perdomo MD 09/10/2016 Office visit Damion Perdomo MD 08/29/2016 Hospital Damion Perdomo MD 08/26/2016 Office visit Damion Perdomo MD 08/05/2016 Laboratory MARIANA HARLEY DIRECTOR DIGITAL MARKETING 08/02/2016 Laboratory MARIANA HARLEY DIRECTOR DIGITAL MARKETING 07/31/2016 Office visit MARIANA HARLEY DIRECTOR DIGITAL MARKETING 12/22/2015 Office visit MARIANA HARLEY DIRECTOR DIGITAL MARKETING 08/29/2015 Office visit Damion Perdomo MD 08/29/2015 Office visit MARIANA HARLEY DIRECTOR DIGITAL MARKETING 03/15/2015 Office visit MARIANA HARLEY DIRECTOR DIGITAL MARKETING
--- OUTSIDE RECORDS SUMMARY | 2019-04-08 09:57 | XMS REPORT ---
Author Author MARIANA HARLEY Organization [facility] Address [address] [place], [place] [address] Care Team Providers Care Print Production Associate Name Role Phone MARIANA HARLEY PCP Unavailable Allergies and Adverse Reactions Name Reaction Notes No known history of drug allergy Plan of Treatment Planned Activity Comments Planned Date Planned Time Plan/Goal LIPID PANEL 12/22/2015 12:00 AM ASSAY OF IRON 08/05/2016 12:00 AM ASSAY OF FERRITIN 08/05/2016 12:00 AM BLOOD SMEAR INTERPRETATION 08/05/2016 12:00 AM Medications Active Name Start Date [...] 12/22/2015 12:00 AM Prostate Cancer Screening Returned 08/02/2016 12:00 AM LIPID PANEL Returned 08/02/2016 12:00 AM GENERAL HEALTH PANEL Returned Results Summary Data and Description Results [...] mL/min/1.73m TSH 1.150 uIU/mLPSA TOTAL 0.540 ng/mL 08/02/2016 3:00 PM WBC 7.0 RBC 4.64 HGB 10.80 g/dLHCT 36.60 %MCV 79.0 fLMCH 23.30 pgMCHC 29.50 g/dLRDW CV 15.40 %MPV 10.0 fLPLT 341 %NEUT 65.70 %%LYMP 17.50 %%MONO 12.40 %%EOS 3.40 %%BASO 0.70 %#NEUT 4.61 #LYMP 1.23 #MONO 0.87 # EOS 0.24 #BASO 0.05 GLUCOSE 109.0 mg/dLSODIUM 138.0 mmol/LPOTASSIUM 4.70 mmol/ LCHLORIDE 105.0 mmol/LCO2 25.0 mmol/LBUN 22.0 mg/dLCREATININE 1.0 mg/dLSGOT/AST 13.0 IU/LSGPT/ALT 21.0 IU/LALK PHOS 88.0 IU/LTOTAL PROTEIN 6.80 g/dLALBUMIN 3.70 g/dLTOTAL BILI 0.50 mg/dLCALCIUM 9.10 mg/dLeGFR >60 mL/min/1.73m TRIGLYCERIDES 44.0 mg/dLCHOLESTEROL 132.0 mg/dLHDL 34.0 mg/dLLDL (CALC) 89.0 mg/ dLTSH 1.030 uIU/mL History Of Immunizations Not available. History of [...] 8:29AM Microcytic anemia Aug 05 2016 11:48AM Payers Insurance Name Company Name Plan Name Plan Number Policy Number Policy Group Number Start Date [facility] [id number] Sunday, 2015 History of Encounters Visit Date Visit Type Provider 08/05/2016 Laboratory MARIANA HARLEY BOOT AND SADDLE REPAIR PERSON 08/02/2016 Laboratory MARIANA HARLEY BOOT AND SADDLE REPAIR PERSON 07/31/2016 Office visit MARIANA HARLEY BOOT AND SADDLE REPAIR PERSON 12/22/2015 Office visit MARIANA HARLEY BOOT AND SADDLE REPAIR PERSON 08/29/2015 Office visit Damion Perdomo MD 08/29/2015 Office visit MARIANA HARLEY BOOT AND SADDLE REPAIR PERSON 03/15/2015 Office visit MARIANA HARLEY BOOT AND SADDLE REPAIR PERSON
--- OUTSIDE RECORDS SUMMARY | 2019-04-08 09:57 | XMS REPORT ---
Author Author MARIANA HARLEY Organization [facility] Address [address] [place], [place] [id number] Care Team Providers Care Milk Drying Machine Operator Name Role Phone MARIANA HARLEY PCP Unavailable Allergies and Adverse Reactions Name Reaction Notes No known history of drug allergy Plan of Treatment Planned Activity Comments Planned Date Planned Time Plan/Goal GENERAL HEALTH PANEL 12/22/2015 12:00 AM LIPID PANEL 12/22/2015 12:00 AM Medications Active Name Start Date Estimated Completion Date SIG Comments lisinopril 40 mg oral tablet 03/15/2015 take 1 tablet (40 mg) by oral route once daily Jublia 10 % topical solution with applicator 12/22/2015 apply to affected toenail(s) by topical route once daily mupirocin 2 % topical ointment 12/22/2015 apply a small amount to the affected area by topical route 3 times per day triamcinolone acetonide 0.5 % topical ointment 12/22/2015 apply a thin layer to the affected area(s) by topical route 3 times per day Problem List Description Status Onset Hypertension Active Vital Signs Date Time BP-Sys(mm[Hg] BP-Lizbeth(mm[Hg]) HR(bpm) RR(rpm) Temp WT HT HC BMI BSA BMI Percentile O2 Sat(%) 12/22/2015 8:34:00 AM 130 mmHg 80 mmHg [...] 8:38AM Toenail fungus Dec 22 2015 8:38AM Payers Insurance Name Company Name Plan Name Plan Number Policy Number Policy Group Number Start Date [facility] [id number] Sunday, 2015 History of Encounters Visit Date Visit Type Provider 12/22/2015 Office visit MARIANA HARLEY EARLY INTERVENTIONIST 08/29/2015 Office visit Damion Perdomo MD 08/29/2015 Office visit MARIANA HARLEY EARLY INTERVENTIONIST 03/15/2015 Office visit MARIANA HARLEY EARLY INTERVENTIONIST
--- OUTSIDE RECORDS SUMMARY | 2019-04-08 09:57 | XMS REPORT ---
Author Author MARIANA HARLEY Organization [facility] Address [address] [place], [place] [id number] Care Team Providers Care Territory Sales Consultant Name Role Phone MARIANA HARLEY PCP Unavailable [...] BLD STOOL POSITIVE 09/04/2016 12:30 PM Free [place] Lt Chains,S 25.30 Free [place]ambda Lt Chains,S 21.80 [place]/Lambda Ratio,S 1.16 Immunoglobulin G, Qn,Serum 1355.0 mg/ dLImmunoglobulin A, Qn,Serum 218.0 mg/dLImmunoglobulin M, Qn,Serum 95 Protein, Total, Serum 6.9 Albumin 3.0 Owcfw-5-Finbzrke 0.4 Oynhs-3-Ghqnjamc 1.1 Beta Globulin 1.0 Gamma Globulin 1.40 g/dLM-Ronan Not Observed Globulin, Total 3.90 g /dLA/G Ratio 0.8 09/25/2016 3:18 PM SEDRATE 78.0 mm/hrANA Direct Positive Antiproteinase 3 (AK-3 )Abs <3.5 12/23/2016 1:15 PM GLUCOSE 154.0 [...] 3.91 HGB 8.80 g/dLHCT 30.90 %MCV 79.0 fLMCH 22.50 pgMCHC 28.50 g/dLRDW SD 53 RDW CV 18.40 [...] 10:08AM Laboratory examination Jun 18 2017 9:47AM Payers Insurance Name Company Name Plan Name Plan Number Policy Number Policy Group Number Start Date [facility] [id number] Sunday, 2015 History of Encounters Visit Date Visit Type Provider 06/04/2017 Laboratory MARIANA HARLEY CONCRETE BOOM OPERATOR 05/01/2017 Office visit MARIANA HARLEY CONCRETE BOOM OPERATOR 04/24/2017 Hospital Alphonse Bender MD 12/24/2016 Office visit MARIANA HARLEY CONCRETE BOOM OPERATOR 12/10/2016 Surgery Damion Perdomo MD 09/10/2016 Office visit Damion Perdomo MD 08/29/2016 Hospital Damion Perdomo MD 08/26/2016 Office visit Damion Perdomo MD 08/05/2016 Laboratory MARIANA HARLEY CONCRETE BOOM OPERATOR 08/02/2016 Laboratory MARIANA HARLEY CONCRETE BOOM OPERATOR 07/31/2016 Office visit MARIANA HARLEY CONCRETE BOOM OPERATOR 12/22/2015 Office visit MARIANA HARLEY CONCRETE BOOM OPERATOR 08/29/2015 Office visit Damion Perdomo MD 08/29/2015 Office visit MARIANA HARLEY CONCRETE BOOM OPERATOR 03/15/2015 Office visit MARIANA HARLEY CONCRETE BOOM OPERATOR
--- OUTSIDE RECORDS SUMMARY | 2019-04-08 09:58 | XMS REPORT ---
Author Author MARIANA HARLEY Organization [facility] Address [address] [place], [place] [id number] Care Team Providers Care Cabin Supervisor Name Role Phone MARIANA HARLEY PCP Unavailable [...] each day Lancets,Ultra Thin 26 gauge miscellaneous [facility] 09/03/2017 Check blood sugars TID PRN dx- E11.9 Accu-Chek Leticia Plus Meter miscellaneous [facility] 09/03/2017 Check blood sugars TID PRN dx E11.9 Accu-Chek Leticia Plus test strp miscellaneous strip 09/03/2017 Check blood sugars TID PRN dx- E11.9 morphine 15 mg oral tablet extended release 09/08/2017 take 1 tablet (15 mg) by oral route every 12 hours Pen Needle 32 gauge x " miscellaneous needle 09/08/2017 use as directed dx- E11.9 Novolog Flexpen 100 unit/mL subcutaneous insulin pen 09/18/2017 inject [...] Policy Group Number Start Date Aetna Aetna [id number] N/A [facility] [id number] Sunday, 2015 History of Encounters Visit Date Visit Type Provider 09/08/2017 Office visit MARIANA HARLEY ELECTRIC METER SETTER 09/03/2017 Office visit MARIANA HARLEY ELECTRIC METER SETTER 08/11/2017 Office visit MARIANA HARLEY ELECTRIC METER SETTER 06/18/2017 Laboratory MARIANA HARLEY ELECTRIC METER SETTER 06/04/2017 Laboratory MARIANA HARLEY ELECTRIC METER SETTER 05/01/2017 Office visit MARIANA HARLEY ELECTRIC METER SETTER 04/24/2017 Hospital Alphonse Bender MD 04/23/2017 [facility] [place] Quiroz MD 12/24/2016 Office visit MARIANA HARLEY ELECTRIC METER SETTER 12/10/2016 Surgery Damion Perdomo MD 09/10/2016 Office visit Damion Perdomo MD 08/29/2016 Hospital Damion Perdomo MD 08/26/2016 Office visit Damion Perdomo MD 08/05/2016 Laboratory MARIANA HARLEY ELECTRIC METER SETTER 08/02/2016 Laboratory MARIANA HARLEY ELECTRIC METER SETTER 07/31/2016 Office visit MARIANA HARLEY ELECTRIC METER SETTER 12/22/2015 Office visit MARIANA HARLEY ELECTRIC METER SETTER 08/29/2015 Office visit Damion Perdomo MD 08/29/2015 Office visit MARIANA HARLEY ELECTRIC METER SETTER 03/15/2015 Office visit MARIANA HARLEY ELECTRIC METER SETTER
--- OUTSIDE RECORDS SUMMARY | 2019-04-08 09:59 | XMS REPORT ---
Author Author MARIANA HARLEY Organization [facility] Address [address] [place], [place] [address] Care Team Providers Care Lineman Apprentice Name Role Phone MARIANA HARLEY PCP Unavailable [...] BLD STOOL POSITIVE 09/04/2016 12:30 PM Free [place] Lt Chains,S 25.30 Free [place]ambda Lt Chains,S 21.80 [place]/Lambda Ratio,S 1.16 Immunoglobulin G, Qn,Serum 1355.0 mg/ dLImmunoglobulin A, Qn,Serum 218.0 mg/dLImmunoglobulin M, Qn,Serum 95 Protein, Total, Serum 6.9 Albumin 3.0 Vepqw-6-Voapjfoq 0.4 Efoyr-3-Cgqjxwqx 1.1 Beta Globulin 1.0 Gamma Globulin 1.40 g/dLM-Ronan Not Observed Globulin, Total 3.90 g /dLA/G Ratio 0.8 09/25/2016 3:18 PM SEDRATE 78.0 mm/hrANA Direct Positive Antiproteinase 3 (PA-3 )Abs <3.5 12/23/2016 1:15 PM GLUCOSE 154.0 [...] 0.05 #BASO 0.02 MANUAL DIFF NOT IND 06/18/2017 10:00 AM TRIGLYCERIDES 71.0 mg/dLCHOLESTEROL 107.0 mg/dLHDL 37.0 mg/ dLTOT CHOL/HDL 2.9 LDL (CALC) 56.0 mg/dL 06/25/2017 10:50 AM WBC 10.4 RBC 3.60 HGB 7.60 g/dLHCT 26.70 %MCV 74.0 fLMCH 21.10 pgMCHC 28.50 g/dLRDW SD 53 RDW CV 19.70 %MPV 9.0 fLPLT 508 NRBC# 0.00 NRBC % 0.0 %NEUT 83.0 %%LYMP 8.40 %%MONO 7.50 %%EOS 0.30 %%BASO 0.30 %#NEUT 8.62 # LYMP 0.87 #MONO 0.78 #EOS 0.03 #BASO 0.03 MANUAL DIFF SEE BELOW SEGS 85 BANDS 0 LYMPHS 9 MONOS 6 ANISO 1+ POIK 1+ HYPO 2++ 06/30/2017 11:05 AM WBC 9.9 RBC 3.90 HGB 8.20 g/dLHCT 28.90 %MCV 74.0 fLMCH 21.0 pgMCHC 28.40 g/dLRDW SD 53 RDW CV 19.60 %MPV 8.80 fLPLT 485 NRBC# 0.00 NRBC % 0.0 %NEUT 87.40 %%LYMP 4.80 %%MONO 6.60 %%EOS 0.40 %%BASO 0.20 %#NEUT 8.64 # LYMP 0.47 #MONO 0.65 #EOS 0.04 #BASO 0.02 MANUAL DIFF SEE BELOW SEGS 85 BANDS 2 LYMPHS 7 MONOS 6 GLUCOSE 326.0 mg/dLSODIUM 137.0 mmol/LPOTASSIUM 4.10 mmol/ LCHLORIDE 101.0 mmol/LCO2 26.0 mmol/LBUN 15.0 mg/dLCREATININE 1.10 mg/dLSGOT/ AST 18.0 IU/LSGPT/ALT 18.0 IU/LALK PHOS 150.0 IU/LTOTAL PROTEIN 6.90 g/ dLALBUMIN 3.0 g/dLTOTAL BILI 0.30 mg/dLCALCIUM 9.20 mg/dLAGE 61 GFR NonAA 69 GFR AA 84 eGFR >60 mL/min/1.73meGFR AA* >60 07/09/2017 10:05 AM WBC 11.1 RBC 3.39 HGB 6.70 g/dLHCT 24.20 %MCV 71.0 fLMCH 19.80 pgMCHC 27.70 g/dLRDW SD 51 RDW CV 19.80 %MPV 9.0 fLPLT 531 NRBC# 0.00 NRBC % 0.0 %NEUT 85.80 %%LYMP 4.50 %%MONO 7.70 %%EOS 0.80 %%BASO 0.50 %#NEUT 9.53 # LYMP 0.50 #MONO 0.85 #EOS 0.09 #BASO 0.05 SEGS 92 BANDS 4 LYMPHS 3 METAS 1 MICRO 2+ MACRO 1+ ANISO 3+ HYPO 3+ POLYCHROMASIA 1+ CALCIUM 9.10 mg/dL History Of Immunizations Not available. History of [...] Policy Number Policy Group Number Start Date [facility] [id number] Sunday, 2015 History of Encounters Visit Date Visit Type Provider 06/18/2017 Laboratory MARIANA HARLEY DOOR PANELER 06/04/2017 Laboratory MARIANA HARLEY DOOR PANELER 05/01/2017 Office visit MARIANA HARLEY DOOR PANELER 04/24/2017 Hospital Alphonse Bender MD 12/24/2016 Office visit MARIANA HARLEY DOOR PANELER 12/10/2016 Surgery Damion Perdomo MD 09/10/2016 Office visit Damion Perdomo MD 08/29/2016 Hospital Damion Perdomo MD 08/26/2016 Office visit Damion Perdomo MD 08/05/2016 Laboratory MARIANA HARLEY DOOR PANELER 08/02/2016 Laboratory MARIANA HARLEY DOOR PANELER 07/31/2016 Office visit MARIANA HARLEY DOOR PANELER 12/22/2015 Office visit MARIANA HARLEY DOOR PANELER 08/29/2015 Office visit Damion Perdomo MD 08/29/2015 Office visit MARIANA HARLEY DOOR PANELER 03/15/2015 Office visit MARIANA HARLEY DOOR PANELER
--- OUTSIDE RECORDS SUMMARY | 2019-04-08 10:00 | XMS REPORT ---
Author Damion Velazquez [facility] Address [address] [place], [place] [id number] Care Team Providers Care Belt Polisher Name Role Phone Damion Perdomo PCP Unavailable [...] BY MOUTH ONCE DAILY AT BEDTIME Xarelto oral Problem List Description Status Onset Hypertension Active Renal cell carcinoma Active Pulmonary embolism Active Vital Signs Date Time BP-Sys(mm[Hg] BP-Lizbeth(mm[Hg]) HR(bpm) RR(rpm) Temp WT HT HC BMI BSA BMI Percentile O2 Sat(%) 08/26/2016 3:33:00 PM 148 mmHg 78 mmHg [...] AM BLOOD SMEAR INTERPRETATION Reviewed Results Summary Data and Description Results 12/22/2015 [...] BLD STOOL POSITIVE 09/04/2016 12:30 PM Free [place] Lt Chains,S 25.30 Free [place] Lt Chains,S 21.80 [place]/Lambda Ratio,S 1.16 Immunoglobulin G, Qn,Serum 1355.0 mg/ dLImmunoglobulin A, Qn,Serum 218.0 mg/dLImmunoglobulin M, Qn,Serum 95 Protein, Total, Serum 6.9 Albumin 3.0 Erhka-8-Dvgmhibm 0.4 Jnrqg-0-Pkjjbwxh 1.1 Beta Globulin 1.0 Gamma Globulin 1.40 g/dLM-Ronan Not Observed Globulin, Total 3.90 g /dLA/G Ratio 0.8 09/25/2016 3:18 PM SEDRATE 78.0 mm/hrANA Direct Positive Antiproteinase 3 ([place]-3 )Abs <3.5 History Of Immunizations Not available. History of [...] Renal cell carcinoma Dec 09 2016 1:15PM Payers Insurance Name Company Name Plan Name Plan Number Policy Number Policy Group Number Start Date [facility] [id number] Sunday, 2015 History of Encounters Visit Date Visit Type Provider 09/10/2016 Office visit Damion Perdomo MD 08/29/2016 Hospital Damion Perdomo MD 08/26/2016 Office visit Damion Perdomo MD 08/05/2016 Laboratory MARIANA HARLEY SAP BASIS ADMINISTRATOR 08/02/2016 Laboratory MARIANA HARLEY SAP BASIS ADMINISTRATOR 07/31/2016 Office visit MARIANA HARLEY SAP BASIS ADMINISTRATOR 12/22/2015 Office visit MARIANA HARLEY SAP BASIS ADMINISTRATOR 08/29/2015 Office visit Damion Perdomo MD 08/29/2015 Office visit MARIANA HARLEY SAP BASIS ADMINISTRATOR 03/15/2015 Office visit MARIANA HARLEY SAP BASIS ADMINISTRATOR
--- OUTSIDE RECORDS SUMMARY | 2019-04-08 10:00 | XMS REPORT ---
Author Author MARIANA HARLEY Organization [facility] Address [address] [place], [place] [id number] Care Team Providers Care Surg Nurse Name Role Phone MARIANA HARLEY PCP Unavailable [...] route 2 times per day with meals lisinopril 20 mg oral tablet take 1 tablet (20 mg) by oral route once daily Aspir-81 81 mg oral tablet,delayed release (DR/EC) take 1 tablet (81 mg ) by oral route once daily Stool Softener oral oxycodone-acetaminophen 10-325 mg oral tablet 12/24/2016 take 1 tablet by oral route every 6 hours as needed prednisone 10 mg oral tablet 12/24/2016 40mg (4 tabs) PO QD x 4 days then, 20mg (2 tabs) PO QD x 4 days then, 10mg (1 tab) PO QD x 4 days Name Start Date Expiration Date SIG [...] by oral route once daily Xarelto oral Problem List Description Status Onset Hypertension Active Renal cell carcinoma Active Pulmonary embolism Active Vital Signs Date Time BP-Sys(mm[Hg] BP-Lizbeth(mm[Hg]) HR(bpm) RR(rpm) Temp WT HT HC BMI BSA BMI Percentile O2 Sat(%) 12/24/2016 1:42:00 PM 121 mmHg 64 mmHg [...] BLD STOOL POSITIVE 09/04/2016 12:30 PM Free [place] Lt Chains,S 25.30 Free [place] Lt Chains,S 21.80 [place]/Lambda Ratio,S 1.16 Immunoglobulin G, Qn,Serum 1355.0 mg/ dLImmunoglobulin A, Qn,Serum 218.0 mg/dLImmunoglobulin M, Qn,Serum 95 Protein, Total, Serum 6.9 Albumin 3.0 Mzjkg-5-Pvuonuzz 0.4 Ogbnx-2-Fhgscmrm 1.1 Beta Globulin 1.0 Gamma Globulin 1.40 [...] 0.28 #BASO 0.05 MANUAL DIFF NOT IND History Of Immunizations [...] Policy Number Policy Group Number [facility] [id number] Sunday, 2015 History of Encounters Visit Date Visit Type Provider 12/24/2016 Office visit MARIANA HARLEY MOBILE EQUIPMENT SERVICER 12/10/2016 Surgery Damion Perdomo MD 09/10/2016 Office visit Damion Perdomo MD 08/29/2016 Hospital Damion Perdomo MD 08/26/2016 Office visit Damion Perdomo MD 08/05/2016 Laboratory MARIANA HARLEY MOBILE EQUIPMENT SERVICER 08/02/2016 Laboratory MARIANA HARLEY MOBILE EQUIPMENT SERVICER 07/31/2016 Office visit MARIANA HARLEY MOBILE EQUIPMENT SERVICER 12/22/2015 Office visit MARIANA HARLEY MOBILE EQUIPMENT SERVICER 08/29/2015 Office visit Damion Perdomo MD 08/29/2015 Office visit MARIANA HARLEY MOBILE EQUIPMENT SERVICER 03/15/2015 Office visit MARIANA HARLEY MOBILE EQUIPMENT SERVICER
--- OUTSIDE RECORDS SUMMARY | 2019-04-08 10:01 | XMS REPORT ---
Author Author MARIANA HARLEY Organization [facility] Address [address] [place], [place] [id number] Care Team Providers Care Chief Nursing Executive Name Role Phone MARIANA HARLEY PCP Unavailable [...] hours Opdivo 100 mg/10 mL intravenous solution tamsulosin 0.4 mg oral capsule,extended release 24hr 08/18/2017 take 1 capsule (0.4 mg) by oral route once daily 1/2 hour following the same meal each day Pen Needle 31 gauge x 5/16" miscellaneous needle 09/03/2017 use as directed dx- E11.9 Lancets,Ultra Thin 26 gauge miscellaneous misc 09/03/2017 Check blood sugars TID PRN dx- E11.9 Accu-Chek Leticia Plus Meter miscellaneous misc 09/03/2017 Check blood sugars TID PRN dx E11.9 Accu-Chek Leticia Plus test strp miscellaneous strip 09/03/2017 Check blood sugars TID PRN dx- E11.9 Name Start Date Expiration Date [...] HC BMI BSA BMI Percentile O2 Sat(%) 09/03/2017 1:06:00 PM 116 mmHg 76 mmHg 78 bpm 16 rpm 98.9 F 207 lbs 64 in 35.53 kg/m2 2.06 m2 97 % 08/11/2017 10:29:00 AM 126 [...] 2017 10:33AM Diabetes Sep 03 2017 1:09PM Payers Insurance Name Company Name Plan Name Plan Number Policy Number Policy Group Number Start Date Aetna Aetna [id number] N/A [facility] [id number] Sunday, 2015 History of Encounters Visit Date Visit Type Provider 09/03/2017 Office visit MARIANA HARLEY CIGAR BANDER HAND 08/11/2017 Office visit MARIANA HARLEY CIGAR BANDER HAND 06/18/2017 Laboratory MARIANA HARLEY CIGAR BANDER HAND 06/04/2017 Laboratory MARIANA HARLEY CIGAR BANDER HAND 05/01/2017 Office visit MARIANA HARLEY CIGAR BANDER HAND 04/24/2017 Hospital Alphonse Bender MD 04/23/2017 Hospital [place] Quiroz MD 12/24/2016 Office visit MARIANA HARLEY CIGAR BANDER HAND 12/10/2016 Surgery Damion ePrdomo MD 09/10/2016 Office visit Damion Perdomo MD 08/29/2016 Hospital Damion Perdomo MD 08/26/2016 Office visit Damion Perdomo MD 08/05/2016 Laboratory MARIANA HARLEY CIGAR BANDER HAND 08/02/2016 Laboratory MARIANA HARLEY CIGAR BANDER HAND 07/31/2016 Office visit MARIANA HARLEY CIGAR BANDER HAND 12/22/2015 Office visit MARIANA HARLEY CIGAR BANDER HAND 08/29/2015 Office visit Damion Perdomo MD 08/29/2015 Office visit MARIANA HARLEY CIGAR BANDER HAND 03/15/2015 Office visit MARIANA HARLEY APRN
--- OUTSIDE RECORDS SUMMARY | 2019-04-08 10:01 | XMS REPORT ---
Author Author MARIANA HARLEY Organization [facility] Address [address] [place], [place] [id number] Care Team Providers Care Phlebotomy Lab Assistant Name Role Phone MARIANA HARLEY PCP [...] each day Lancets,Ultra Thin 26 gauge miscellaneous [facility] 09/03/2017 Check blood sugars TID PRN dx- E11.9 Accu-Chek Leticia Plus Meter miscellaneous [facility] 09/03/2017 Check blood sugars TID PRN dx [...] Policy Group Number Start Date Aetna Aetna [id number] N/A [facility] [id number] Sunday, 2015 History of Encounters Visit Date Visit Type Provider 09/08/2017 Office visit MARIANA HARLEY REGISTERED RADIATION THERAPIST 09/03/2017 Office visit MARIANA HARLEY REGISTERED RADIATION THERAPIST 08/11/2017 Office visit MARIANA HARLEY REGISTERED RADIATION THERAPIST 06/18/2017 Laboratory MARIANA HARLEY REGISTERED RADIATION THERAPIST 06/04/2017 Laboratory MARIANA HARLEY REGISTERED RADIATION THERAPIST 05/01/2017 Office visit MARIANA HARLEY REGISTERED RADIATION THERAPIST 04/24/2017 Hospital Alphonse Bender MD 04/23/2017 Hospital [place] Quiroz MD 12/24/2016 Office visit MARIANA HARLEY REGISTERED RADIATION THERAPIST 12/10/2016 Surgery Damion Perdomo MD 09/10/2016 Office visit Damion Perdomo MD 08/29/2016 Hospital Damion Perdomo MD 08/26/2016 Office visit Damion Perdomo MD 08/05/2016 Laboratory MARIANA HARLEY REGISTERED RADIATION THERAPIST 08/02/2016 Laboratory MARIANA HARLEY REGISTERED RADIATION THERAPIST 07/31/2016 Office visit MARIANA HARLEY REGISTERED RADIATION THERAPIST 12/22/2015 Office visit MARIANA HARLEY REGISTERED RADIATION THERAPIST 08/29/2015 Office visit Damion Perdomo MD 08/29/2015 Office visit MARIANA HARLEY REGISTERED RADIATION THERAPIST 03/15/2015 Office visit MARIANA HARLEY REGISTERED RADIATION THERAPIST
--- OUTSIDE RECORDS SUMMARY | 2019-04-08 10:02 | XMS REPORT ---
Author Author MARIANA HARLEY Organization [facility] Address [address] [place], [place] [address] Care Team Providers Care Ems Director Name Role Phone MARIANA HARLEY PCP MARIANA HARLEY PreferredProvider Allergies and Adverse Reactions Name Reaction Notes No known history of drug allergy Plan of Treatment Planned Activity Comments Planned Date Planned Time Plan/Goal Injection Of Immunization, Initial 10/06/2017 12:00 AM MRI LUMBAR SPINE W/O CONTRAST 01/07/2018 12:00 AM Medications Active Name Start Date [...] dx- E11.9 pravastatin 40 mg oral tablet 10/24/2017 01/22/2018 [...] Given Vis Pub CVX Influenza 10/06/2017 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 Flulaval Quadrivalent [id number] Intramuscular Left Deltoid [...] Dec 24 2016 1:46PM Renal cell carcinoma Nicho 8 2017 10:08AM Laboratory examination Jun 18 2017 [...] Abscess Of Face Dec 29 2017 8:11AM Payers Insurance Name Company Name Plan Name Plan Number Policy Number Policy Group Number Start Date [facility] [id number] Saturday, 2017 [facility] [id number] Sunday, 2015 Aetna Aetna [id number] N/A History of Encounters Visit Date Visit Type Provider 01/07/2018 Office visit MARIANA HARLEY CUTTER IN 12/10/2017 Office visit Damion Perdomo MD 11/26/2017 Office visit MARIANA HARLEY CUTTER IN 11/19/2017 Office visit Damion Perdomo MD 11/12/2017 Procedures Damion Perdomo MD 10/29/2017 Procedures Damion Perdomo MD 10/06/2017 Office visit MARIANA HARLEY CUTTER IN 09/08/2017 Office visit MARIANA HARLEY CUTTER IN 09/03/2017 Office visit MARIANA HARLEY CUTTER IN 08/11/2017 Office visit MARIANA HARLEY CUTTER IN 06/18/2017 Laboratory MARIANA HARLEY CUTTER IN 06/04/2017 Laboratory MARIANA HARLEY CUTTER IN 05/01/2017 Office visit MARIANA HARLEY CUTTER IN 04/24/2017 [facility] Alphonse Bender MD 04/23/2017 [facility] [place] Quiroz MD 12/24/2016 Office visit MARIANA HARLEY CUTTER IN 12/10/2016 Surgery Damion Perdomo MD 09/10/2016 Office visit Damion Perdomo MD 08/29/2016 Hospital Damion Perdomo MD 08/26/2016 Office visit Damion Perdomo MD 08/05/2016 Laboratory MARIANA HARLEY CUTTER IN 08/02/2016 Laboratory MARIANA HARLEY CUTTER IN 07/31/2016 Office visit MARIANA HARLEY CUTTER IN 12/22/2015 Office visit MARIANA HARLEY CUTTER IN 08/29/2015 Office visit Damion Perdomo MD 08/29/2015 Office visit MARIANA HARLEY CUTTER IN 03/15/2015 Office visit MARIANA HARLEY CUTTER IN
--- OUTSIDE RECORDS SUMMARY | 2019-04-08 10:02 | XMS REPORT ---
Author Author MARIANA HARLEY Organization [facility] Address [address] [place], [place] [address] Care Team Providers Care Tar Pot Worker Name Role Phone MARIANA HARLEY PCP Allergies and Adverse Reactions Name Reaction Notes [...] 12 hours Pen Needle 32 gauge x 32" miscellaneous needle 09/08/2017 use as directed dx- [...] inject 12 units by subcutaneous route once Name Start Date Expiration Date SIG Comments [...] HC BMI BSA BMI Percentile O2 Sat(%) 10/06/2017 11:01:00 AM 100 mmHg 66 mmHg [...] 10/06/2017 12:00 AM GENERAL HEALTH PANEL Returned Results Summary Date and Description Results 12/22/2015 3:17 PM TSH 1.150 uIU/mLPSA TOTAL 0.540 ng/mL History Of Immunizations Name Date Admin Mfg Name Mfg Code Trade Name Lot# Route Inj Vis Given Vis Pub CVX Influenza 10/06/2017 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 of 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 OT Flulaval Quadrivalent [id number] Intramuscular Left Deltoid 10/06/2017 [...] 11:08AM Flu Vaccine Oct 06 2017 11:41AM Payers Insurance Name Company Name Plan Name Plan Number Policy Number Policy Group Number Start Date Aetna Aetna [id number] N/A [facility] [id number] Sunday, 2015 History of Encounters Visit Date Visit Type Provider 10/06/2017 Office visit MARIANA HARLEY SUPERVISOR ADVICE 09/08/2017 Office visit MARIANA HARLEY SUPERVISOR ADVICE 09/03/2017 Office visit MARIANA HARLEY SUPERVISOR ADVICE 08/11/2017 Office visit MARIANA HARLEY SUPERVISOR ADVICE 06/18/2017 Laboratory MARIANA HARLEY SUPERVISOR ADVICE 06/04/2017 Laboratory MARIANA HARLEY SUPERVISOR ADVICE 05/01/2017 Office visit MARIANA HARLEY SUPERVISOR ADVICE 04/24/2017 [facility] Alphonse Bender MD 04/23/2017 [facility] [place] Quiroz MD 12/24/2016 Office visit MARIANA HARLEY SUPERVISOR ADVICE 12/10/2016 Surgery Damion Perdomo MD 09/10/2016 Office visit Damion Perdomo MD 08/29/2016 Hospital Damion Perdomo MD 08/26/2016 Office visit Damion Perdomo MD 08/05/2016 Laboratory MARIANA HARLEY SUPERVISOR ADVICE 08/02/2016 Laboratory MARIANA HARLEY SUPERVISOR ADVICE 07/31/2016 Office visit MARIANA HARLEY SUPERVISOR ADVICE 12/22/2015 Office visit MARIANA HARLEY SUPERVISOR ADVICE 08/29/2015 Office visit Damion Perdomo MD 08/29/2015 Office visit MARIANA HARLEY SUPERVISOR ADVICE 03/15/2015 Office visit MARIANA HARLEY SUPERVISOR ADVICE
--- OUTSIDE RECORDS SUMMARY | 2019-04-08 10:04 | XMS REPORT ---
Author Author MARIANA HARLEY Organization [facility] Address [address] [place], [place] [address] Care Team Providers Care Quarrying Manager Name Role Phone MARIANA HARLEY PCP Unavailable [...] BLD STOOL POSITIVE 09/04/2016 12:30 PM Free [place] Lt Chains,S 25.30 Free Lambda Lt Chains,S 21.80 [place]/Lambda Ratio,S 1.16 Immunoglobulin G, Qn,Serum 1355.0 mg/ dLImmunoglobulin A, Qn,Serum 218.0 mg/dLImmunoglobulin M, Qn,Serum 95 Protein, Total, Serum 6.9 Albumin 3.0 Scrsr-6-Pedrwekr 0.4 Ywxev-9-Apzcsdou 1.1 Beta Globulin 1.0 Gamma Globulin 1.40 g/dLM-Ronan Not Observed Globulin, Total 3.90 g /dLA/G Ratio 0.8 09/25/2016 3:18 PM SEDRATE 78.0 mm/hrANA Direct Positive Antiproteinase 3 ([place]-3 )Abs <3.5 12/23/2016 1:15 PM GLUCOSE 154.0 [...] 3.91 HGB 8.80 g/dLHCT 30.90 %MCV 79.0 [facility] 22.50 [facility] 28.[facility] g/dLRDW SD 53 RDW CV 18.40 [...] Policy Group Number Start Date [facility] [id number] Sunday, 2015 History of Encounters Visit Date Visit Type Provider 06/18/2017 Laboratory MARIANA HARLEY ARCHIVIST 06/04/2017 Laboratory MARIANA HARLEY ARCHIVIST 05/01/2017 Office visit MARIANA HARLEY ARCHIVIST 04/24/2017 [facility] Alphonse Bender MD 12/24/2016 Office visit MARIANA HARLEY ARCHIVIST 12/10/2016 Surgery Damion Perdomo MD 09/10/2016 Office visit Damion Perdomo MD 08/29/2016 Hospital Damion Perdomo MD 08/26/2016 Office visit Damion Perdomo MD 08/05/2016 Laboratory MARIANA HARLEY ARCHIVIST 08/02/2016 Laboratory MARIANA HARLEY ARCHIVIST 07/31/2016 Office visit MARIANA HARLEY ARCHIVIST 12/22/2015 Office visit MARIANA HARLEY ARCHIVIST 08/29/2015 Office visit Damion Perdomo MD 08/29/2015 Office visit MARIANA HARLEY ARCHIVIST 03/15/2015 Office visit MARIANA HARLEY ARCHIVIST
--- OUTSIDE RECORDS SUMMARY | 2019-04-08 10:04 | XMS REPORT ---
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 OTH Flulaval Quadrivalent [id number] Intramuscular Left Deltoid [...] Policy Number Policy Group Number [facility] [id number] Saturday, 2017 [facility] [id number] Sunday, 2015 Melba Reilly [id number] N/A History of Encounters Visit Date Visit Type Provider 11/26/2017 Office visit MARIANA HARLEY ACCOUNT INSTALLATION SPECIALIST 11/19/2017 Office visit Damion Perdomo MD 11/12/2017 Procedures Damion Perdomo MD 10/29/2017 Procedures Damion Perdomo MD 10/06/2017 Office visit MARIANA HRALEY ACCOUNT INSTALLATION SPECIALIST 09/08/2017 Office visit MARIANA HARLEY ACCOUNT INSTALLATION SPECIALIST 09/03/2017 Office visit MARIANA HARLEY ACCOUNT INSTALLATION SPECIALIST 08/11/2017 Office visit MARIANA HARLEY ACCOUNT INSTALLATION SPECIALIST 06/18/2017 Laboratory MARIANA HARLEY ACCOUNT INSTALLATION SPECIALIST 06/04/2017 Laboratory MARIANA HARLEY ACCOUNT INSTALLATION SPECIALIST 05/01/2017 Office visit MARIANA HARLEY ACCOUNT INSTALLATION SPECIALIST 04/24/2017 Hospital Alphonse Bender MD 04/23/2017 Hospital [place] Quiroz MD 12/24/2016 Office visit MARIANA HARLEY ACCOUNT INSTALLATION SPECIALIST 12/10/2016 Surgery Damion Perdomo MD 09/10/2016 Office visit Damion Perdomo MD 08/29/2016 Hospital Damion Perdomo MD 08/26/2016 Office visit Damion Perdomo MD 08/05/2016 Laboratory MARIANA HARLEY ACCOUNT INSTALLATION SPECIALIST 08/02/2016 Laboratory MARIANA HARLEY ACCOUNT INSTALLATION SPECIALIST 07/31/2016 Office visit MARIANA HARLEY ACCOUNT INSTALLATION SPECIALIST 12/22/2015 Office visit MARIANA HARLEY ACCOUNT INSTALLATION SPECIALIST 08/29/2015 Office visit Damion Perdomo MD 08/29/2015 Office visit MARIANA HARLEY ACCOUNT INSTALLATION SPECIALIST 03/15/2015 Office visit MARIANA HARLEY ACCOUNT INSTALLATION SPECIALIST
[2019-04-08] MEDS ORDERED: ONDANSETRON 4 MG/2 ML (SDV) Z0FRAN ONE (10:05)
--- OUTSIDE RECORDS SUMMARY | 2019-04-08 10:05 | XMS REPORT ---
Author Author MARIANA HARLEY Organization [facility] Address [address] [place], [place] [address] Care Team Providers Care Maintenance Technician Name Role Phone MARIANA HARLEY PCP Unavailable [...] BLD STOOL POSITIVE 09/04/2016 12:30 PM Free [place] Lt Chains,S 25.30 Free [place]ambda Lt Chains,S 21.80 [place]/Lambda Ratio,S 1.16 Immunoglobulin G, Qn,Serum 1355.0 mg/ dLImmunoglobulin A, Qn,Serum 218.0 mg/dLImmunoglobulin M, Qn,Serum 95 Protein, Total, Serum 6.9 Albumin 3.0 Bvolw-1-Fybugsmf 0.4 Cjgwp-8-Saworzbi 1.1 Beta Globulin 1.0 Gamma Globulin 1.40 g/dLM-Ronan Not Observed Globulin, Total 3.90 g /dLA/G Ratio 0.8 09/25/2016 3:18 PM SEDRATE 78.0 mm/hrANA Direct Positive Antiproteinase 3 ([place]-3 )Abs <3.5 12/23/2016 1:15 PM GLUCOSE 154.0 [...] Bilateral pulmonary embolism Dec 24 2016 1:46PM Payers Insurance Name Company Name Plan Name Plan Number Policy Number Policy Group Number Start Date [facility] [id number] Sunday, 2015 History of Encounters Visit Date Visit Type Provider 12/24/2016 Office visit MARIANA HARLEY EMBOSSOGRAPH OPERATOR 12/10/2016 Surgery Damion Perdomo MD 09/10/2016 Office visit Damion Perdomo MD 08/29/2016 Hospital Damion Perdomo MD 08/26/2016 Office visit Damion Perdomo MD 08/05/2016 Laboratory MARIANA HARLEY EMBOSSOGRAPH OPERATOR 08/02/2016 Laboratory MARIANA HARLEY EMBOSSOGRAPH OPERATOR 07/31/2016 Office visit MARIANA HARLEY EMBOSSOGRAPH OPERATOR 12/22/2015 Office visit MARIANA HARLEY EMBOSSOGRAPH OPERATOR 08/29/2015 Office visit Damion Perdomo MD 08/29/2015 Office visit MARIANA HARLEY EMBOSSOGRAPH OPERATOR 03/15/2015 Office visit MARIANA HARLEY EMBOSSOGRAPH OPERATOR
--- OUTSIDE RECORDS SUMMARY | 2019-04-08 10:05 | XMS REPORT ---
Author Author MARIANA HARLEY Organization [facility] Address [address] [place], [place] [address] Care Team Providers Care Business Relations Manager Name Role Phone MARIANA HARLEY PCP [...] each day Lancets,Ultra Thin 26 gauge miscellaneous [facility] 09/03/2017 Check blood sugars TID PRN dx- E11.9 Accu-Chek Leticia Plus Meter miscellaneous [facility] 09/03/2017 Check blood sugars TID PRN dx [...] Policy Group Number Start Date Aetna Aetna [id number] N/A [facility] [id number] Sunday, 2015 History of Encounters Visit Date Visit Type Provider 09/08/2017 Office visit MARIANA HARLEY HOUSE VISITOR 09/03/2017 Office visit MARIANA HARLEY HOUSE VISITOR 08/11/2017 Office visit MARIANA HARLEY HOUSE VISITOR 06/18/2017 Laboratory MARIANA HARLEY HOUSE VISITOR 06/04/2017 Laboratory MARIANA HARLEY HOUSE VISITOR 05/01/2017 Office visit MARIANA HARLEY HOUSE VISITOR 04/24/2017 Hospital Alphonse Bender MD 04/23/2017 Hospital [place] Quiroz MD 12/24/2016 Office visit MARIANA HARLEY HOUSE VISITOR 12/10/2016 Surgery Damion Perdomo MD 09/10/2016 Office visit Damion Perdomo MD 08/29/2016 Hospital Damion Perdomo MD 08/26/2016 Office visit Damion Perdomo MD 08/05/2016 Laboratory MARIANA HARLEY HOUSE VISITOR 08/02/2016 Laboratory MARIANA HARLEY HOUSE VISITOR 07/31/2016 Office visit MARIANA HARLEY HOUSE VISITOR 12/22/2015 Office visit MARIANA HARLEY HOUSE VISITOR 08/29/2015 Office visit Damion Perdomo MD 08/29/2015 Office visit MARIANA HARLEY HOUSE VISITOR 03/15/2015 Office visit MARIANA HARLEY HOUSE VISITOR
--- OUTSIDE RECORDS SUMMARY | 2019-04-08 10:06 | XMS REPORT ---
Author Author Damion Perdomo [facility] Address [address] [place], [place] [address] Care Team Providers Care Folding Machine Feeder Name Role Phone Damion Perdomo PCP MARIANA HARLEY PreferredProvider Allergies and Adverse Reactions Name Reaction Notes No known history of drug allergy Plan of Treatment Planned Activity Comments Planned Date Planned Time Plan/Goal Injection Of Immunization, Initial 10/06/2017 12:00 AM C[facility] 10/29/2017 12:00 AM Medications Active Name Start Date [...] each day Lancets,Ultra Thin 26 gauge miscellaneous [facility] 09/03/2017 Check blood sugars TID PRN dx- [...] inject 12 units by subcutaneous route once pravastatin 40 mg oral tablet 10/24/2017 01/22/2018 [...] HC BMI BSA BMI Percentile O2 Sat(%) 10/29/2017 10:02:00 AM 136 mmHg 72 mmHg [...] Given Vis Pub CVX Influenza 10/06/2017 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 OTH Flulaval Quadrivalent [id number] Intramuscular Left Deltoid [...] Abscess Of Trunk Oct 29 2017 10:01AM Payers Insurance Name Company Name Plan Name Plan Number Policy Number Policy Group Number Start Date Aetna Aetna [id number] N/A [facility] [id number] Sunday, 2015 History of Encounters Visit Date Visit Type Provider 10/29/2017 Procedures Damion Perdomo MD 10/06/2017 Office visit MARIANA HARLEY SUPERVISOR ROLLER PRINTING 09/08/2017 Office visit MARIANA HARLEY SUPERVISOR ROLLER PRINTING 09/03/2017 Office visit MARIANA HARLEY SUPERVISOR ROLLER PRINTING 08/11/2017 Office visit MARIANA HARLEY SUPERVISOR ROLLER PRINTING 06/18/2017 Laboratory MARIANA HARLEY SUPERVISOR ROLLER PRINTING 06/04/2017 Laboratory MARIANA HARLEY SUPERVISOR ROLLER PRINTING 05/01/2017 Office visit MARIANA HARLEY SUPERVISOR ROLLER PRINTING 04/24/2017 Hospital Alphonse Bender MD 04/23/2017 Hospital [place] Quiroz MD 12/24/2016 Office visit MARIANA HARLEY SUPERVISOR ROLLER PRINTING 12/10/2016 Surgery Damion Perdomo MD 09/10/2016 Office visit Damion Perdomo MD 08/29/2016 Hospital Damion Perdomo MD 08/26/2016 Office visit Damion Perdomo MD 08/05/2016 Laboratory MARIANA HARLEY SUPERVISOR ROLLER PRINTING 08/02/2016 Laboratory MARIANA HARLEY SUPERVISOR ROLLER PRINTING 07/31/2016 Office visit MARIANA HARLEY SUPERVISOR ROLLER PRINTING 12/22/2015 Office visit MARIANA HARLEY SUPERVISOR ROLLER PRINTING 08/29/2015 Office visit Damion Perdomo MD 08/29/2015 Office visit MARIANA HARLEY SUPERVISOR ROLLER PRINTING 03/15/2015 Office visit MARIANA HARLEY SUPERVISOR ROLLER PRINTING
--- OUTSIDE RECORDS SUMMARY | 2019-04-08 10:07 | XMS REPORT ---
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 OTH Flulaval Quadrivalent [id number] Intramuscular Left Deltoid [...] Policy Group Number Start Date Aetna Aetna [id number] N/A [facility] [id number] Sunday, 2015 History of Encounters Visit Date Visit Type Provider 10/29/2017 Procedures Damion Perdomo MD 10/06/2017 Office visit MARIANA HARLEY ROUTING EQUIPMENT TENDER 09/08/2017 Office visit MARIANA HARLEY ROUTING EQUIPMENT TENDER 09/03/2017 Office visit MARIANA HARLEY ROUTING EQUIPMENT TENDER 08/11/2017 Office visit MARIANA HARLEY ROUTING EQUIPMENT TENDER 06/18/2017 Laboratory MARIANA HARLEY ROUTING EQUIPMENT TENDER 06/04/2017 Laboratory MARIANA HARLEY ROUTING EQUIPMENT TENDER 05/01/2017 Office visit MARIANA HARLEY ROUTING EQUIPMENT TENDER 04/24/2017 Hospital Alphonse Bender MD 04/23/2017 Hospital [place] Quiroz MD 12/24/2016 Office visit MARIANA HARLEY ROUTING EQUIPMENT TENDER 12/10/2016 Surgery Damion Perdomo MD 09/10/2016 Office visit Damion ePrdomo MD 08/29/2016 Hospital Damion Perdomo MD 08/26/2016 Office visit Damion Perdomo MD 08/05/2016 Laboratory MARIANA HARLEY ROUTING EQUIPMENT TENDER 08/02/2016 Laboratory MARIANA HARLEY ROUTING EQUIPMENT TENDER 07/31/2016 Office visit MARIANA HARLEY ROUTING EQUIPMENT TENDER 12/22/2015 Office visit MARIANA HARLEY ROUTING EQUIPMENT TENDER 08/29/2015 Office visit Damion Perdomo MD 08/29/2015 Office visit MARIANA HARLEY ROUTING EQUIPMENT TENDER 03/15/2015 Office visit MARIANA HARLEY ROUTING EQUIPMENT TENDER
--- OUTSIDE RECORDS SUMMARY | 2019-04-08 10:07 | XMS REPORT ---
Author Author MARIANA HARLEY Organization [facility] Address [address] [place], [place] [address] Care Team Providers Care Anglesmith Helper Name Role Phone MARIANA HARLEY PCP Unavailable [...] morphine 15 mg oral tablet extended release 05/09/2017 take 1 tablet (15 mg ) by [...] BLD STOOL POSITIVE 09/04/2016 12:30 PM Free [place] Lt Chains,S 25.30 Free Lambda Lt Chains,S 21.80 [place]/Lambda Ratio,S 1.16 Immunoglobulin G, Qn,Serum 1355.0 mg/ dLImmunoglobulin A, Qn,Serum 218.0 mg/dLImmunoglobulin M, Qn,Serum 95 Protein, Total, Serum 6.9 Albumin 3.0 Vnmws-1-Axssbgfo 0.4 Kzvwz-7-Sahmilyq 1.1 Beta Globulin 1.0 Gamma Globulin 1.40 g/dLM-Ronan Not Observed Globulin, Total 3.90 g /dLA/G Ratio 0.8 09/25/2016 3:18 PM SEDRATE 78.0 mm/hrANA Direct Positive Antiproteinase 3 (TN-3 )Abs <3.5 12/23/2016 1:15 PM GLUCOSE 154.0 [...] 1 MONOS 3 MICRO 1+ POLYCHROMASIA 1+ History Of Immunizations Not available. History of [...] Renal cell carcinoma May 01 2017 10:08AM Payers Insurance Name Company Name Plan Name Plan Number Policy Number Policy Group Number Start Date [facility] [id number] Sunday, 2015 History of Encounters Visit Date Visit Type Provider 05/01/2017 Office visit MARIANA HARLEY ENROLLMENT REPRESENTATIVE 12/24/2016 Office visit MARIANA HARLEY ENROLLMENT REPRESENTATIVE 12/10/2016 Surgery Damion Perdomo MD 09/10/2016 Office visit Damion Perdomo MD 08/29/2016 Hospital Damion Perdomo MD 08/26/2016 Office visit Damion Perdomo MD 08/05/2016 Laboratory MARIANA HARLEY ENROLLMENT REPRESENTATIVE 08/02/2016 Laboratory MARIANA HARLEY ENROLLMENT REPRESENTATIVE 07/31/2016 Office visit MARIANA HARLEY ENROLLMENT REPRESENTATIVE 12/22/2015 Office visit MARIANA HARLEY ENROLLMENT REPRESENTATIVE 08/29/2015 Office visit Damion Perdomo MD 08/29/2015 Office visit MARIANA HARLEY ENROLLMENT REPRESENTATIVE 03/15/2015 Office visit MARIANA HARLEY ENROLLMENT REPRESENTATIVE
--- OUTSIDE RECORDS SUMMARY | 2019-04-08 10:07 | XMS REPORT ---
Author Author MARIANA HARLEY Organization [facility] Address [address] [place], [place] [id number] Care Team Providers Care Medical Data Entry Clerk Name Role Phone MARIANA HARLEY PCP Unavailable [...] Number Start Date [facility] [id number] Sunday, 2015 History of Encounters Visit Date Visit Type Provider 08/05/2016 Laboratory MARIANA HARLEY CASHIER GREETER 08/02/2016 Laboratory MARIANA HARLEY CASHIER GREETER 07/31/2016 Office visit MARIANA HARLEY CASHIER GREETER 12/22/2015 Office visit MARIANA HARLEY CASHIER GREETER 08/29/2015 Office visit Damion Perdomo MD 08/29/2015 Office visit MARIANA HARLEY CASHIER GREETER 03/15/2015 Office visit MARIANA HARLEY CASHIER GREETER
--- OUTSIDE RECORDS SUMMARY | 2019-04-08 10:08 | XMS REPORT ---
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 Flulaval Quadrivalent [id number] Intramuscular Left Deltoid [...] Number Policy Group Number Start Date [employer] [facility] [id number] Saturday, 2017 [facility] [id number] Sunday, 2015 Aetna Aetna [id number] N/A History of Encounters Visit Date Visit Type Provider 12/10/2017 Office visit Damion Perdomo MD 11/26/2017 Office visit MARIANA HARLEY DELIVERY TABLE OPERATOR 11/19/2017 Office visit Damion Perdomo MD 11/12/2017 Procedures Damion Perdomo MD 10/29/2017 Procedures Damion Perdomo MD 10/06/2017 Office visit MARIANA HARLEY DELIVERY TABLE OPERATOR 09/08/2017 Office visit MARIANA HARLEY DELIVERY TABLE OPERATOR 09/03/2017 Office visit MARIANA HARLEY DELIVERY TABLE OPERATOR 08/11/2017 Office visit MARIANA HARLEY DELIVERY TABLE OPERATOR 06/18/2017 Laboratory MARIANA HARLEY DELIVERY TABLE OPERATOR 06/04/2017 Laboratory MARIANA HARLEY DELIVERY TABLE OPERATOR 05/01/2017 Office visit MARIANA HARLEY DELIVERY TABLE OPERATOR 04/24/2017 Hospital Alphonse Bender MD 04/23/2017 Hospital [place] Quiroz MD 12/24/2016 Office visit MARIANA HARLEY DELIVERY TABLE OPERATOR 12/10/2016 Surgery Damion Perdomo MD 09/10/2016 Office visit Damion Perdomo MD 08/29/2016 Hospital Damion Perdomo MD 08/26/2016 Office visit Damion Perdomo MD 08/05/2016 Laboratory MARIANA HARLEY DELIVERY TABLE OPERATOR 08/02/2016 Laboratory MARIANA HARLEY DELIVERY TABLE OPERATOR 07/31/2016 Office visit MARIANA HARLEY DELIVERY TABLE OPERATOR 12/22/2015 Office visit MARIANA HARLEY DELIVERY TABLE OPERATOR 08/29/2015 Office visit Damion Perdomo MD 08/29/2015 Office visit MARIANA HARLEY DELIVERY TABLE OPERATOR 03/15/2015 Office visit MARIANA HARLEY APRN
--- OUTSIDE RECORDS SUMMARY | 2019-04-08 10:08 | XMS REPORT ---
Author Damion Velazquez [facility] Address [address] [place], [place] [id number] Care Team Providers Care Solid Waste Landfill Technician Name Role Phone Damion Perdomo PCP Unavailable [...] TABLET BY MOUTH ONCE DAILY AT BEDTIME Problem List Description Status Onset Hypertension Active [...] BLD STOOL POSITIVE 09/04/2016 12:30 PM Free [place] Lt Chains,S 25.30 Free [place]ambda Lt Chains,S 21.80 [place]/Lambda Ratio,S 1.16 Immunoglobulin G, Qn,Serum 1355.0 mg/ dLImmunoglobulin A, Qn,Serum 218.0 mg/dLImmunoglobulin M, Qn,Serum 95 Protein, Total, Serum 6.9 Albumin 3.0 Xvvnv-9-Qfxtpelk 0.4 Cqsta-9-Fmckzhxx 1.1 Beta Globulin 1.0 Gamma Globulin 1.40 g/dLM-Ronan Not Observed Globulin, Total 3.90 g /dLA/G Ratio 0.8 09/25/2016 3:18 PM SEDRATE 78.0 mm/hrANA Direct Positive Antiproteinase 3 (AR-3 )Abs <3.5 History Of Immunizations Not available. [...] 1:23PM Gastric polyps Sep 11 2016 1:23PM Payers Insurance Name Company Name Plan Name Plan Number Policy Number Policy Group Number Start Date [facility] [id number] Sunday, 2015 History of Encounters Visit Date Visit Type Provider 09/10/2016 Office visit Damion Perdomo MD 08/29/2016 Hospital Damion Perdomo MD 08/26/2016 Office visit Damion Perdomo MD 08/05/2016 Laboratory MARIANA HARLEY PET FOOD DEBONER 08/02/2016 Laboratory MARIANA HARLEY PET FOOD DEBONER 07/31/2016 Office visit MARIANA HARLEY PET FOOD DEBONER 12/22/2015 Office visit MARIANA HARLEY PET FOOD DEBONER 08/29/2015 Office visit Damion Perdomo MD 08/29/2015 Office visit MARIANA HARLEY APRN 03/15/2015 Office visit MARIANA HARLEY APRN
--- OUTSIDE RECORDS SUMMARY | 2019-04-08 10:09 | XMS REPORT ---
Author Damion Velazquez [facility] Address [address] [place], [place] [address] Care Team Providers Care Tea Leaf Reader Name Role Phone Damion Perdomo PCP Unavailable [...] GENERAL HEALTH PANEL Returned 12/22/2015 12:00 AM LIPID PANEL Reviewed 12/22/2015 12:00 AM Prostate Cancer Screening Returned 08/02/2016 12:00 AM ROUTINE VENIPUNCTURE Reviewed 08/02/2016 [...] mg/dLLDL (CALC) 89.0 mg/ dLTSH 1.030 uIU/mL 08/05/2016 9:25 AM Transferrin 222.0 mg/dLIRON TOTAL 20.0 ug/dLTransferrin 222.0 mg/dL 08/05/2016 3:31 PM IRON TOTAL 17.0 ug/dLWBC 9.7 RBC 4.68 HGB 10.70 g/dLHCT 36.0 %MCV 77.0 fLMCH 22.90 pgMCHC 29.70 g/dLRDW CV 15.20 %MPV 9.80 fLPLT 401 % NEUT 65.10 %%LYMP 20.20 %%MONO 11.0 %%EOS 2.70 %%BASO 0.70 %#NEUT 6.32 #LYMP 1.96 #MONO 1.07 #EOS 0.26 #BASO 0.07 EOS 2.0 %FERRITIN 523.0 ng/mL 08/20/2016 5:40 PM WBC 9.0 RBC 4.81 HGB 11.10 g/dLHCT 36.90 %MCV 77.0 fLMCH 23.10 pgMCHC 30.10 g/dLRDW CV 15.20 %MPV 8.70 fLPLT 382 %NEUT 66.60 %%LYMP 20.20 %%MONO 9.80 %%EOS 2.60 %%BASO 0.60 %#NEUT 6.01 #LYMP 1.82 #MONO 0.88 #EOS 0.23 #BASO 0.05 RETIC % 1.110 %RETIC # 5.34 IRON TOTAL 13.0 ug/dLTransferrin 217.0 mg/dLGLUCOSE 91.0 mg/dLSODIUM 140.0 mmol/LPOTASSIUM 3.90 mmol/LCHLORIDE 104.0 mmol/LCO2 25.0 mmol/LBUN 21.0 mg/dLCREATININE 1.0 mg/dLSGOT/AST 18.0 IU/ LSGPT/ALT 31.0 IU/LALK PHOS 93.0 IU/LTOTAL PROTEIN 8.0 g/dLALBUMIN 4.0 g/ dLTOTAL BILI 0.20 mg/dLCALCIUM 9.80 mg/dLeGFR >60 mL/min/1.73mLDH 246.0 IU/ LSEDRATE 64.0 mm/hrFERRITIN 632.0 ng/mL 08/22/2016 2:45 PM OCC BLD STOOL POSITIVE 09/04/2016 12:30 PM Immunoglobulin G, Qn,Serum 1355.0 mg/dLImmunoglobulin A, Qn,Serum 218.0 mg/dLGamma Globulin 1.40 g/dLGlobulin, Total 3.90 g/dLA/G Ratio 0.8 History Of Immunizations Not available. History of [...] Policy Group Number Start Date [facility] [id number] Sunday, 2015 History of Encounters Visit Date Visit Type Provider 09/10/2016 Office visit Damion Perdomo MD 08/29/2016 Hospital Damion Perdomo MD 08/26/2016 Office visit Damion Perdomo MD 08/05/2016 Laboratory MARIANA HARLEY JUMPBASTING FACING BASTER 08/02/2016 Laboratory MARIANA HARLEY JUMPBASTING FACING BASTER 07/31/2016 Office visit MARIANA HARLEY JUMPBASTING FACING BASTER 12/22/2015 Office visit MARIANA HARLEY JUMPBASTING FACING BASTER 08/29/2015 Office visit Damion Perdomo MD 08/29/2015 Office visit MARIANA HARLEY JUMPBASTING FACING BASTER 03/15/2015 Office visit MARIANA HARLEY JUMPBASTING FACING BASTER
--- OUTSIDE RECORDS SUMMARY | 2019-04-08 10:10 | XMS REPORT ---
Author Author MARIANA HARLEY Organization [facility] Address [address] [place], [place] [id number] Care Team Providers Care New Car Salesperson Name Role Phone MARIANA HARLEY PCP Unavailable [...] every 4 hours as needed for pain morphine 15 mg oral tablet extended release take 1 tablet (15 mg) by oral route every 12 hours Augmentin 875-125 mg oral tablet take 1 tablet by oral route every 12 hours Name [...] BLD STOOL POSITIVE 09/04/2016 12:30 PM Free [place] Lt Chains,S 25.30 Free [place] Lt Chains,S 21.80 [place]/Lambda Ratio,S 1.16 Immunoglobulin G, Qn,Serum 1355.0 mg/ dLImmunoglobulin A, Qn,Serum 218.0 mg/dLImmunoglobulin M, Qn,Serum 95 Protein, Total, Serum 6.9 Albumin 3.0 Cwibz-2-Ezhopccq 0.4 Ebaqn-7-Ydgiogxq 1.1 Beta Globulin 1.0 Gamma Globulin 1.40 g/dLM-Ronan Not Observed Globulin, Total 3.90 g /dLA/G Ratio 0.8 09/25/2016 3:18 PM SEDRATE 78.0 mm/hrANA Direct Positive Antiproteinase 3 (DE-3 )Abs <3.5 12/23/2016 1:15 PM GLUCOSE 154.0 [...] Policy Group Number Start Date [facility] [id number] Sunday, 2015 History of Encounters Visit Date Visit Type Provider 05/01/2017 Office visit MARIANA HARLEY BELT BUILDER 12/24/2016 Office visit MARIANA HARLEY BELT BUILDER 12/10/2016 Surgery Damion Perdomo MD 09/10/2016 Office visit Damion Perdomo MD 08/29/2016 Hospital Damion Perdomo MD 08/26/2016 Office visit Damion Perdomo MD 08/05/2016 Laboratory MARIANA HARLEY BELT BUILDER 08/02/2016 Laboratory MARIANA HARLEY BELT BUILDER 07/31/2016 Office visit MARIANA HARLEY BELT BUILDER 12/22/2015 Office visit MARIANA HARLEY BELT BUILDER 08/29/2015 Office visit Damion Perdomo MD 08/29/2015 Office visit MARIANA HARLEY BELT BUILDER 03/15/2015 Office visit MARIANA HARLEY BELT BUILDER
--- OUTSIDE RECORDS SUMMARY | 2019-04-08 10:11 | XMS REPORT ---
Author Author Damion Perdomo [facility] Address [address] [place], [place] [address] Care Team Providers Care Intelligence Agent Name Role Phone Damion Perdomo PCP MARIANA [...] DAILY AT BEDTIME tamsulosin 0.4 mg oral capsule,extended release 24hr 03/23/2018 TAKE 1 CAPSULE BY MOUTH ONCE DAILY A HALF HOUR FOLLOWING THE SAME MEAL EACH DAY pravastatin 40 mg oral tablet 03/23/2018 TAKE [...] TO CHECK GLUCOSE THREE TIMES DAILY NEEDED omeprazole 40 mg oral capsule,delayed release(DR/EC) 01/27/2018 [...] AM MRI LUMBAR SPINE W/O DYE Reviewed Results Summary Date and Description Results 12/22/2015 3:17 PM TSH 1.150 uIU/mLPSA TOTAL 0.540 ng/mL History Of Immunizations Name Date Admin Mfg Name Mfg Code Trade Name Lot# Route Inj Vis Given Vis Pub CVX Influenza 10/06/2017 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 Flulaval quadrivalent [id number] Intramuscular Left Deltoid [...] Policy Number Policy Group Number Start Date [facility] [id number] Saturday, 2017 [facility] [id number] Sunday, 2015 Aetna Aetna [id number] N/A History of Encounters Visit Date Visit Type Provider 01/16/2018 Surgery Damion Perdomo MD 01/07/2018 Office visit MARIANA HARLEY BODY MAKE UP ARTIST 12/10/2017 Office visit Damion Perdomo MD 11/26/2017 Office visit MARIANA HARLEY BODY MAKE UP ARTIST 11/19/2017 Office visit Damion Perdomo MD 11/12/2017 Procedures Damion Perdomo MD 10/29/2017 Procedures Damion Perdomo MD 10/06/2017 Office visit MARIANA HARLEY BODY MAKE UP ARTIST 09/08/2017 Office visit MARIANA HARLEY BODY MAKE UP ARTIST 09/03/2017 Office visit MARIANA HARLEY BODY MAKE UP ARTIST 08/11/2017 Office visit MARIANA HARLEY BODY MAKE UP ARTIST 06/18/2017 Laboratory MARIANA HARLEY BODY MAKE UP ARTIST 06/04/2017 Laboratory MARIANA HARLEY BODY MAKE UP ARTIST 05/01/2017 Office visit MARIANA HARLEY BODY MAKE UP ARTIST 04/24/2017 Hospital Alphonse Bender MD 04/23/2017 [facility] [place] Quiroz MD 12/24/2016 Office visit MARIANA HARLEY BODY MAKE UP ARTIST 12/10/2016 Surgery Damion Perdomo MD 09/10/2016 Office visit Damion Perdomo MD 08/29/2016 Hospital Damion Perdomo MD 08/26/2016 Office visit Damion Perdomo MD 08/05/2016 Laboratory MARIANA HARLEY BODY MAKE UP ARTIST 08/02/2016 Laboratory MARIANA HARLEY BODY MAKE UP ARTIST 07/31/2016 Office visit MARIANA HARLEY BODY MAKE UP ARTIST 12/22/2015 Office visit MARIANA HARLEY BODY MAKE UP ARTIST 08/29/2015 Office visit Damion Perdomo MD 08/29/2015 Office visit MARIANA HARLEY BODY MAKE UP ARTIST 03/15/2015 Office visit MARIANA HARLEY BODY MAKE UP ARTIST
--- OUTSIDE RECORDS SUMMARY | 2019-04-08 10:11 | XMS REPORT ---
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 Flulaval Quadrivalent [id number] Intramuscular Left Deltoid [...] Number Start Date [facility] [id number] Saturday, 2017 [facility] [id number] Sunday, 2015 Aetna Aetna [id number] N/A History of Encounters Visit Date Visit Type Provider 01/16/2018 Surgery Damion Perdomo MD 01/07/2018 Office visit MARIANA HARLEY TURF FARM WORKER 12/10/2017 Office visit Damion Perdomo MD 11/26/2017 Office visit MARIANA HARLEY TURF FARM WORKER 11/19/2017 Office visit Damion Perdomo MD 11/12/2017 Procedures Damion Perdomo MD 10/29/2017 Procedures Damion Perdomo MD 10/06/2017 Office visit MARIANA HARLEY TURF FARM WORKER 09/08/2017 Office visit MARIANA HARLEY TURF FARM WORKER 09/03/2017 Office visit MARIANA HARLEY TURF FARM WORKER 08/11/2017 Office visit MARIANA HARLEY TURF FARM WORKER 06/18/2017 Laboratory MARIANA HARLEY TURF FARM WORKER 06/04/2017 Laboratory MARIANA HARLEY TURF FARM WORKER 05/01/2017 Office visit MARIANA HARLEY TURF FARM WORKER 04/24/2017 Hospital Alphonse Bender MD 04/23/2017 Hospital [place] Quiroz MD 12/24/2016 Office visit MARIANA HARLEY TURF FARM WORKER 12/10/2016 Surgery Damion Perdomo MD 09/10/2016 Office visit Damion Perdomo MD 08/29/2016 Hospital Damion Perdomo MD 08/26/2016 Office visit Damion Perdomo MD 08/05/2016 Laboratory MARIANA HARLEY TURF FARM WORKER 08/02/2016 Laboratory MARIANA HARLEY TURF FARM WORKER 07/31/2016 Office visit MARIANA HARLEY TURF FARM WORKER 12/22/2015 Office visit MARIANA HARLEY TURF FARM WORKER 08/29/2015 Office visit Damion Perdomo MD 08/29/2015 Office visit MARIANA HARLEY TURF FARM WORKER 03/15/2015 Office visit MARIANA HARLEY TURF FARM WORKER
--- OUTSIDE RECORDS SUMMARY | 2019-04-08 10:12 | XMS REPORT ---
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 Flulaval Quadrivalent [id number] Intramuscular Left Deltoid [...] Policy Number Policy Group Number Start Date [facility] [id number] Saturday, 2017 [facility] [id number] Sunday, 2015 Melba Reilly [id number] N/A History of Encounters Visit Date Visit Type Provider 11/26/2017 Office visit MARIANA HARLEY INVAS TECH 11/19/2017 Office visit Damion Perdomo MD 11/12/2017 Procedures Damion Perdomo MD 10/29/2017 Procedures Damion Perdomo MD 10/06/2017 Office visit MARIANA HARLEY INVAS TECH 09/08/2017 Office visit MARIANA HARLEY INVAS TECH 09/03/2017 Office visit MARIANA HARLEY INVAS TECH 08/11/2017 Office visit MARIANA HARLEY INVAS TECH 06/18/2017 Laboratory MARIANA HARLEY INVAS TECH 06/04/2017 Laboratory MARIANA HARLEY INVAS TECH 05/01/2017 Office visit MARIANA HARLEY INVAS TECH 04/24/2017 Hospital Alphonse Bender MD 04/23/2017 Hospital [place] Quiroz MD 12/24/2016 Office visit MARIANA HARLEY INVAS TECH 12/10/2016 Surgery Damion Perdomo MD 09/10/2016 Office visit Damion Perdomo MD 08/29/2016 Hospital Damion Perdomo MD 08/26/2016 Office visit Damion Perdomo MD 08/05/2016 Laboratory MARIANA HARLEY INVAS TECH 08/02/2016 Laboratory MARIANA HARLEY INVAS TECH 07/31/2016 Office visit MARIANA HARLEY INVAS TECH 12/22/2015 Office visit MARIANA HARLEY INVAS TECH 08/29/2015 Office visit Damion Perdomo MD 08/29/2015 Office visit MARIANA HARLEY INVAS TECH 03/15/2015 Office visit MARIANA HARLEY INVAS TECH
--- OUTSIDE RECORDS SUMMARY | 2019-04-08 10:12 | XMS REPORT ---
Author Author MARIANA HARLEY Organization [facility] Address [address] [place], [place] [address] Care Team Providers Care Structural Steel Ironworker Name Role Phone MARIANA HARLEY PCP Unavailable [...] 2016 9:25AM Hypertension Jul 31 2016 9:25AM Payers Insurance Name Company Name Plan Name Plan Number Policy Number Policy Group Number Start Date [facility] [id number] Sunday, 2015 History of Encounters Visit Date Visit Type Provider 08/05/2016 Laboratory MARIANA HARLEY CAP AND STUD MACHINE OPERATOR 08/02/2016 Laboratory MARIANA HARLEY CAP AND STUD MACHINE OPERATOR 07/31/2016 Office visit MARIANA HARLEY CAP AND STUD MACHINE OPERATOR 12/22/2015 Office visit MARIANA HARLEY CAP AND STUD MACHINE OPERATOR 08/29/2015 Office visit Damion Perdomo MD 08/29/2015 Office visit MARIANA HARLEY APRN 03/15/2015 Office visit MARIANA HARLEY APRN
--- OUTSIDE RECORDS SUMMARY | 2019-04-08 10:12 | XMS REPORT ---
Author Damion Velazquez [facility] Address [address] [place], [place] [address] Care Team Providers Care Sheet Taker Name Role Phone Damion Perdomo PCP Unavailable [...] 08/22/2016 2:45 PM OCC BLD STOOL POSITIVE History Of Immunizations Not available. History of [...] blood in stools Aug 26 2016 3:33PM Payers Insurance Name Company Name Plan Name Plan Number Policy Number Policy Group Number Start Date [facility] [place] [id number] Sunday, 2015 History of Encounters Visit Date Visit Type Provider 08/26/2016 Office visit Damion Perdomo MD 08/05/2016 Laboratory MARIANA HARLEY FLAT SORTING MACHINE CLERK 08/02/2016 Laboratory MARIANA HARLEY FLAT SORTING MACHINE CLERK 07/31/2016 Office visit MARIANA HARLEY FLAT SORTING MACHINE CLERK 12/22/2015 Office visit MARIANA HARLEY FLAT SORTING MACHINE CLERK 08/29/2015 Office visit Damion Perdomo MD 08/29/2015 Office visit MARIANA HARLEY FLAT SORTING MACHINE CLERK 03/15/2015 Office visit MARIANA HARLEY FLAT SORTING MACHINE CLERK
--- OUTSIDE RECORDS SUMMARY | 2019-04-08 10:13 | XMS REPORT ---
Author Author MARIANA HARLEY Organization [facility] Address [address] [place], [place] [address] Care Team Providers Care Mobility Architect Manager Name Role Phone MARIAAN HARLEY PCP Unavailable Allergies and Adverse Reactions [...] BLD STOOL POSITIVE 09/04/2016 12:30 PM Free [place] Lt Chains,S 25.30 Free [place]ambda Lt Chains,S 21.80 [place]/Lambda Ratio,S 1.16 Immunoglobulin G, Qn,Serum 1355.0 mg/ dLImmunoglobulin A, Qn,Serum 218.0 mg/dLImmunoglobulin M, Qn,Serum 95 Protein, Total, Serum 6.9 Albumin 3.0 Ixiov-5-Xwqgwroo 0.4 Keaek-8-Puvxsfpr 1.1 Beta Globulin 1.0 Gamma Globulin 1.40 g/dLM-Ronan Not Observed Globulin, Total 3.90 g /dLA/G Ratio 0.8 09/25/2016 3:18 PM SEDRATE 78.0 mm/hrANA Direct Positive Antiproteinase 3 (NC-3 )Abs <3.5 12/23/2016 1:15 PM GLUCOSE 154.0 [...] Policy Number Policy Group Number Start Date [facility] [id number] Sunday, 2015 History of Encounters Visit Date Visit Type Provider 12/24/2016 Office visit MARIANA HARLEY DRYWALLER 12/10/2016 Surgery Damion Perdomo MD 09/10/2016 Office visit Damion Perdomo MD 08/29/2016 Hospital Damion Perdomo MD 08/26/2016 Office visit Damion Perdomo MD 08/05/2016 Laboratory MARIANA HARLEY DRYWALLER 08/02/2016 Laboratory MARIANA HARLEY DRYWALLER 07/31/2016 Office visit MARIANA HARLEY DRYWALLER 12/22/2015 Office visit MARIANA HARLEY DRYWALLER 08/29/2015 Office visit Damion Perdomo MD 08/29/2015 Office visit MARIANA HARLEY DRYWALLER 03/15/2015 Office visit MARIANA HARLEY DRYWALLER
--- OUTSIDE RECORDS SUMMARY | 2019-04-08 10:14 | XMS REPORT ---
Author Author MARIANA HARLEY Organization [facility] Address [address] [place], [place] [address] Care Team Providers Care Disabilities Services Officer Name Role Phone MARIANA HARLEY PCP Unavailable [...] BLD STOOL POSITIVE 09/04/2016 12:30 PM Free [place] Lt Chains,S 25.30 Free Lambda Lt Chains,S 21.80 [place]/Lambda Ratio,S 1.16 Immunoglobulin G, Qn,Serum 1355.0 mg/ dLImmunoglobulin A, Qn,Serum 218.0 mg/dLImmunoglobulin M, Qn,Serum 95 Protein, Total, Serum 6.9 Albumin 3.0 Kimpu-5-Ejwzhyuv 0.4 Puypq-3-Mgeuvlbs 1.1 Beta Globulin 1.0 Gamma Globulin 1.40 g/dLM-Ronan Not Observed Globulin, Total 3.90 g /dLA/G Ratio 0.8 09/25/2016 3:18 PM SEDRATE 78.0 mm/hrANA Direct Positive Antiproteinase 3 (NM-3 )Abs <3.5 12/23/2016 1:15 PM GLUCOSE 154.0 [...] Policy Number Policy Group Number [id number] Sunday, 2015 History of Encounters Visit Date Visit Type Provider 12/24/2016 Office visit MARIANA HARLEY TRADESHOW WORKER 12/10/2016 Surgery Damion Perdomo MD 09/10/2016 Office visit Damion Perdomo MD 08/29/2016 Hospital Damion Perdomo MD 08/26/2016 Office visit Damion Perdomo MD 08/05/2016 Laboratory MARIANA HARLEY TRADESHOW WORKER 08/02/2016 Laboratory MARIANA HARLEY TRADESHOW WORKER 07/31/2016 Office visit MARIANA HARLEY TRADESHOW WORKER 12/22/2015 Office visit MARIANA HARLEY TRADESHOW WORKER 08/29/2015 Office visit Damion Perdomo MD 08/29/2015 Office visit MARIANA HARLEY TRADESHOW WORKER 03/15/2015 Office visit MARIANA HARLEY TRADESHOW WORKER
--- OUTSIDE RECORDS SUMMARY | 2019-04-08 10:14 | XMS REPORT ---
Author Author MARIANA HARLEY Organization [facility] Address [address] [place], [place] [address] Care Team Providers Care Intermediate Frame Tender Name Role Phone MARIANA HARLEY PCP Unavailable [...] each day Lancets,Ultra Thin 26 gauge miscellaneous [facility] 09/03/2017 Check blood sugars TID PRN dx- E11.9 Accu-Chek Leticia Plus Meter miscellaneous [facility] 09/03/2017 Check blood sugars TID PRN dx [...] Policy Group Number Start Date Aetna Aetna [id number] N/A [facility] [id number] Sunday, 2015 History of Encounters Visit Date Visit Type Provider 09/08/2017 Office visit MARIANA HARLEY SPORTS BOOK SERVER 09/03/2017 Office visit MARIANA HARLEY SPORTS BOOK SERVER 08/11/2017 Office visit MARIANA HARLEY SPORTS BOOK SERVER 06/18/2017 Laboratory MARIANA HARLEY SPORTS BOOK SERVER 06/04/2017 Laboratory MARIANA HARLEY SPORTS BOOK SERVER 05/01/2017 Office visit MARIANA HARLEY SPORTS BOOK SERVER 04/24/2017 Hospital Alphonse Bender MD 04/23/2017 Hospital [place] Quiroz MD 12/24/2016 Office visit MARIANA HARLEY SPORTS BOOK SERVER 12/10/2016 Surgery Damion Perdomo MD 09/10/2016 Office visit Damion Perdomo MD 08/29/2016 Hospital Damion Perdomo MD 08/26/2016 Office visit Damion Perdomo MD 08/05/2016 Laboratory MARIANA HARLEY SPORTS BOOK SERVER 08/02/2016 Laboratory MARIANA HARLEY SPORTS BOOK SERVER 07/31/2016 Office visit MARIANA HARLEY SPORTS BOOK SERVER 12/22/2015 Office visit MARIANA HARLEY SPORTS BOOK SERVER 08/29/2015 Office visit Damion Perdomo MD 08/29/2015 Office visit MARIANA HARLEY SPORTS BOOK SERVER 03/15/2015 Office visit MARIANA HARLEY SPORTS BOOK SERVER
--- OUTSIDE RECORDS SUMMARY | 2019-04-08 10:14 | XMS REPORT ---
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 [id number] Sunday, 2015 History of Encounters Visit Date Visit Type Provider 11/12/2017 Procedures Damion Perdomo MD 10/29/2017 Procedures Damion Perdomo MD 10/06/2017 Office visit MARIANA HARLEY REAL ESTATE TRANSACTION MANAGER 09/08/2017 Office visit MARIANA HARLEY REAL ESTATE TRANSACTION MANAGER 09/03/2017 Office visit MARIANA HARLEY REAL ESTATE TRANSACTION MANAGER 08/11/2017 Office visit MARIANA HARLEY REAL ESTATE TRANSACTION MANAGER 06/18/2017 Laboratory MARIANA HARLEY REAL ESTATE TRANSACTION MANAGER 06/04/2017 Laboratory MARIANA HARLEY REAL ESTATE TRANSACTION MANAGER 05/01/2017 Office visit MARIANA HARLEY REAL ESTATE TRANSACTION MANAGER 04/24/2017 Hospital Alphonse Bender MD 04/23/2017 Hospital [place] Quiroz MD 12/24/2016 Office visit MARIANA HARLEY REAL ESTATE TRANSACTION MANAGER 12/10/2016 Surgery Damion Perdomo MD 09/10/2016 Office visit Damion Perdomo MD 08/29/2016 Hospital Damion Perdomo MD 08/26/2016 Office visit Damion Perdomo MD 08/05/2016 Laboratory MARIANA HARLEY REAL ESTATE TRANSACTION MANAGER 08/02/2016 Laboratory MARIANA HARLEY REAL ESTATE TRANSACTION MANAGER 07/31/2016 Office visit MARIANA HARLEY REAL ESTATE TRANSACTION MANAGER 12/22/2015 Office visit MARIANA HARLEY REAL ESTATE TRANSACTION MANAGER 08/29/2015 Office visit Damion Perdomo MD 08/29/2015 Office visit MARIANA HARLEY REAL ESTATE TRANSACTION MANAGER 03/15/2015 Office visit MARIANA HARLEY REAL ESTATE TRANSACTION MANAGER
--- OUTSIDE RECORDS SUMMARY | 2019-04-08 10:15 | XMS REPORT ---
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 OTH Flulaval Quadrivalent [id number] Intramuscular Left Deltoid [...] Policy Number Policy Group Number [id number] Saturday, 2017 [facility] [id number] Sunday, 2015 Melba Reilly [id number] N/A History of Encounters Visit Date Visit Type Provider 11/26/2017 Office visit MARIANA HARLEY PATIENT ACCOUNTING REPRESENTATIVE 11/19/2017 Office visit Damion Perdomo MD 11/12/2017 Procedures Damion Perdomo MD 10/29/2017 Procedures Damion Perdomo MD 10/06/2017 Office visit MARIANA HARLEY PATIENT ACCOUNTING REPRESENTATIVE 09/08/2017 Office visit MARIANA HARLEY PATIENT ACCOUNTING REPRESENTATIVE 09/03/2017 Office visit MARIANA HARLEY PATIENT ACCOUNTING REPRESENTATIVE 08/11/2017 Office visit MARIANA HARLEY PATIENT ACCOUNTING REPRESENTATIVE 06/18/2017 Laboratory MARIANA HARLEY PATIENT ACCOUNTING REPRESENTATIVE 06/04/2017 Laboratory MARIANA HARLEY PATIENT ACCOUNTING REPRESENTATIVE 05/01/2017 Office visit MARIANA HARLEY PATIENT ACCOUNTING REPRESENTATIVE 04/24/2017 Hospital Alphonse Bender MD 04/23/2017 Hospital [place] Quiroz MD 12/24/2016 Office visit MARIANA HARLEY PATIENT ACCOUNTING REPRESENTATIVE 12/10/2016 Surgery Damion Perdomo MD 09/10/2016 Office visit Damion Perdomo MD 08/29/2016 Hospital Damion Perdomo MD 08/26/2016 Office visit Damion Perdomo MD 08/05/2016 Laboratory MARIANA HARLEY PATIENT ACCOUNTING REPRESENTATIVE 08/02/2016 Laboratory MARIANA HARLEY PATIENT ACCOUNTING REPRESENTATIVE 07/31/2016 Office visit MARIANA HARLEY PATIENT ACCOUNTING REPRESENTATIVE 12/22/2015 Office visit MARIANA HARLEY PATIENT ACCOUNTING REPRESENTATIVE 08/29/2015 Office visit Damion Perdomo MD 08/29/2015 Office visit MARIANA HARLEY PATIENT ACCOUNTING REPRESENTATIVE 03/15/2015 Office visit MARIANA HARLEY PATIENT ACCOUNTING REPRESENTATIVE
--- OUTSIDE RECORDS SUMMARY | 2019-04-08 10:16 | XMS REPORT ---
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 Flulaval Quadrivalent [id number] Intramuscular Left Deltoid [...] Policy Group Number Start Date Aetna Aetna [id number] N/A [facility] [id number] Sunday, 2015 History of Encounters Visit Date Visit Type Provider 10/06/2017 Office visit MARIANA HARLEY AUTO WINDER 09/08/2017 Office visit MARIANA HARLEY AUTO WINDER 09/03/2017 Office visit MARIANA HARLEY AUTO WINDER 08/11/2017 Office visit MARIANA HARLEY AUTO WINDER 06/18/2017 Laboratory MARIANA HARLEY AUTO WINDER 06/04/2017 Laboratory MARIANA HARLEY AUTO WINDER 05/01/2017 Office visit MARIANA HARLEY AUTO WINDER 04/24/2017 Hospital Alphonse Bender MD 04/23/2017 [facility] [place] Quiroz MD 12/24/2016 Office visit MARIANA HARLEY AUTO WINDER 12/10/2016 Surgery Damion Perdomo MD 09/10/2016 Office visit Damion Perdomo MD 08/29/2016 Hospital Damion Perdomo MD 08/26/2016 Office visit Damion Perdomo MD 08/05/2016 Laboratory MARIANA HARLEY AUTO WINDER 08/02/2016 Laboratory MARIANA HARLEY AUTO WINDER 07/31/2016 Office visit MARIANA HARLEY AUTO WINDER 12/22/2015 Office visit MARIANA HARLEY AUTO WINDER 08/29/2015 Office visit Damion Perdomo MD 08/29/2015 Office visit MARIANA HARLEY AUTO WINDER 03/15/2015 Office visit MARIANA HARLEY AUTO WINDER
--- OUTSIDE RECORDS SUMMARY | 2019-04-08 10:16 | XMS REPORT ---
Author Author MARIANA HARLEY Organization [facility] Address [address] [place], [place] [address] Care Team Providers Care Truck Loader Overhead Crane Name Role Phone MARIANA HARLEY PCP Unavailable [...] each day Lancets,Ultra Thin 26 gauge miscellaneous [facility] 09/03/2017 Check blood sugars TID PRN dx- E11.9 Accu-Chek Leticia Plus Meter miscellaneous [facility] 09/03/2017 Check blood sugars TID PRN dx [...] Policy Group Number Start Date Aetna Aetna [id number] N/A [facility] [id number] Sunday, 2015 History of Encounters Visit Date Visit Type Provider 09/08/2017 Office visit MARIANA HARLEY ANALYSIS MANAGER 09/03/2017 Office visit MARIANA HARLEY ANALYSIS MANAGER 08/11/2017 Office visit MARIANA HARLEY ANALYSIS MANAGER 06/18/2017 Laboratory MARIANA HARLEY ANALYSIS MANAGER 06/04/2017 Laboratory MARIANA HARLEY ANALYSIS MANAGER 05/01/2017 Office visit MARIANA HARLEY ANALYSIS MANAGER 04/24/2017 Hospital Alphonse Bender MD 04/23/2017 Hospital [place] Quiroz MD 12/24/2016 Office visit MARIANA HARLEY ANALYSIS MANAGER 12/10/2016 Surgery Damion Perdomo MD 09/10/2016 Office visit Damion Perdomo MD 08/29/2016 Hospital Damion Perdomo MD 08/26/2016 Office visit Damion Perdomo MD 08/05/2016 Laboratory MARIANA HARLEY ANALYSIS MANAGER 08/02/2016 Laboratory MARIANA HARLEY ANALYSIS MANAGER 07/31/2016 Office visit MARIANA HARLEY ANALYSIS MANAGER 12/22/2015 Office visit MARIANA HARLEY ANALYSIS MANAGER 08/29/2015 Office visit Damion Perdomo MD 08/29/2015 Office visit MARIANA HARLEY ANALYSIS MANAGER 03/15/2015 Office visit MARIANA HARLEY ANALYSIS MANAGER
--- OUTSIDE RECORDS SUMMARY | 2019-04-08 10:17 | XMS REPORT ---
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 OTH Flulaval Quadrivalent [id number] Intramuscular Left Deltoid [...] 3:34PM Epigastric pain Jan 15 2018 12:52PM Payers Insurance Name Company Name Plan Name Plan Number Policy Number Policy Group Number Start Date [facility] [id number] Saturday, 2017 [facility] [id number] Sunday, 2015 Aetna Aetna [id number] N/A History of Encounters Visit Date Visit Type Provider 01/07/2018 Office visit MARIANA HARLEY SALES CONSULTANT INSURANCE 12/10/2017 Office visit Damion Perdomo MD 11/26/2017 Office visit MARIANA HARLEY SALES CONSULTANT INSURANCE 11/19/2017 Office visit Damion Perdomo MD 11/12/2017 Procedures Damion Perdomo MD 10/29/2017 Procedures Damion Perdomo MD 10/06/2017 Office visit MARIANA HARLEY SALES CONSULTANT INSURANCE 09/08/2017 Office visit MARIANA HARLEY SALES CONSULTANT INSURANCE 09/03/2017 Office visit MARIANA HARLEY SALES CONSULTANT INSURANCE 08/11/2017 Office visit MARIANA HARLEY SALES CONSULTANT INSURANCE 06/18/2017 Laboratory MARIANA HARLEY SALES CONSULTANT INSURANCE 06/04/2017 Laboratory MARIANA HARLEY SALES CONSULTANT INSURANCE 05/01/2017 Office visit MARIANA HARLEY SALES CONSULTANT INSURANCE 04/24/2017 Hospital Alphonse Bender MD 04/23/2017 [facility] [place] Quiroz MD 12/24/2016 Office visit MARIANA HARLEY SALES CONSULTANT INSURANCE 12/10/2016 Surgery Damion Perdomo MD 09/10/2016 Office visit Damion Perdomo MD 08/29/2016 Hospital Damion Perdomo MD 08/26/2016 Office visit Damion Perdomo MD 08/05/2016 Laboratory MARIANA HARLEY SALES CONSULTANT INSURANCE 08/02/2016 Laboratory MARIANA HARLEY SALES CONSULTANT INSURANCE 07/31/2016 Office visit MARIANA HARLEY SALES CONSULTANT INSURANCE 12/22/2015 Office visit MARIANA HARLEY SALES CONSULTANT INSURANCE 08/29/2015 Office visit Damion Perdomo MD 08/29/2015 Office visit MARIANA HARLEY SALES CONSULTANT INSURANCE 03/15/2015 Office visit MARIANA HARLEY SALES CONSULTANT INSURANCE
--- OUTSIDE RECORDS SUMMARY | 2019-04-08 10:17 | XMS REPORT ---
Author Author MARIANA HARLEY Organization [facility] Address [address] [place], [place] [address] Care Team Providers Care Building Construction Foreman Name Role Phone MARIANA HARLEY PCP Unavailable Allergies and Adverse Reactions Name Reaction Notes No known history of drug allergy Plan of Treatment Planned Activity Comments Planned Date Planned Time Plan/Goal General health panel (CMP, CBC, TSH) 10/06/2017 12:00 AM Injection Of Immunization, Initial 10/06/2017 12:00 AM Flu vaccine 3 yrs & older, Quadrivalent, Preservative-free (single-dose syringe ) 10/06/2017 12:00 AM Medications Active Name Start [...] Policy Group Number Start Date Aetna Aetna [id number] N/A [facility] [id number] Sunday, 2015 History of Encounters Visit Date Visit Type Provider 10/06/2017 Office visit MARIANA HARLEY MANAGED CARE PROVIDER 09/08/2017 Office visit MARIANA HARLEY MANAGED CARE PROVIDER 09/03/2017 Office visit MARIANA HARLEY MANAGED CARE PROVIDER 08/11/2017 Office visit MARIANA HARLEY MANAGED CARE PROVIDER 06/18/2017 Laboratory MARIANA HARLEY MANAGED CARE PROVIDER 06/04/2017 Laboratory MARIANA HARLEY MANAGED CARE PROVIDER 05/01/2017 Office visit MARIANA HARLEY MANAGED CARE PROVIDER 04/24/2017 Hospital Alphonse Bender MD 04/23/2017 Hospital [place] Quiroz MD 12/24/2016 Office visit MARIANA HARLEY MANAGED CARE PROVIDER 12/10/2016 Surgery Damion Perdomo MD 09/10/2016 Office visit Damion Perdomo MD 08/29/2016 Hospital Damion Perdomo MD 08/26/2016 Office visit Damion Perdomo MD 08/05/2016 Laboratory MARIANA HARLEY MANAGED CARE PROVIDER 08/02/2016 Laboratory MARIANA HARLEY MANAGED CARE PROVIDER 07/31/2016 Office visit MARIANA HARLEY MANAGED CARE PROVIDER 12/22/2015 Office visit MARIANA HARLEY MANAGED CARE PROVIDER 08/29/2015 Office visit Damion Perdomo MD 08/29/2015 Office visit MARIANA HARLEY MANAGED CARE PROVIDER 03/15/2015 Office visit MARIANA HARLEY MANAGED CARE PROVIDER
--- OUTSIDE RECORDS SUMMARY | 2019-04-08 10:18 | XMS REPORT ---
Author Damion Velazquez [facility] Address [address] [place], [place] [address] Care Team Providers Care Medical Illustrator Name Role Phone Damion Perdomo PCP Unavailable [...] Policy Number Policy Group Number Start Date [facility] [id number] Sunday, 2015 History of Encounters Visit Date Visit Type Provider 08/26/2016 Office visit Damion Perdomo MD 08/05/2016 Laboratory MARIANA HARLEY ASSISTANT DEAN OF STUDENTS 08/02/2016 Laboratory MARIANA HARLEY ASSISTANT DEAN OF STUDENTS 07/31/2016 Office visit MARIANA HARLEY ASSISTANT DEAN OF STUDENTS 12/22/2015 Office visit MARIANA HARLEY ASSISTANT DEAN OF STUDENTS 08/29/2015 Office visit Damion Perdomo MD 08/29/2015 Office visit MARIANA HARLEY ASSISTANT DEAN OF STUDENTS 03/15/2015 Office visit MARIANA HARLEY ASSISTANT DEAN OF STUDENTS
--- OUTSIDE RECORDS SUMMARY | 2019-04-08 10:18 | XMS REPORT ---
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 Flulaval Quadrivalent [id number] Intramuscular Left Deltoid [...] Number Policy Group Number Start Date [employer] [facility] [id number] Saturday, 2017 [facility] [id number] Sunday, 2015 Aetna Aetna [id number] N/A History of Encounters Visit Date Visit Type Provider 12/10/2017 Office visit Damion Perdomo MD 11/26/2017 Office visit MARIANA HARLEY FINANCIAL INSTITUTION TREASURER 11/19/2017 Office visit Damion Perdomo MD 11/12/2017 Procedures Damion Perdomo MD 10/29/2017 Procedures Damion Perdomo MD 10/06/2017 Office visit MARIANA HARLEY FINANCIAL INSTITUTION TREASURER 09/08/2017 Office visit MARIANA HARLEY FINANCIAL INSTITUTION TREASURER 09/03/2017 Office visit MARIANA HARLEY FINANCIAL INSTITUTION TREASURER 08/11/2017 Office visit MARIANA HARLEY FINANCIAL INSTITUTION TREASURER 06/18/2017 Laboratory MARIANA HARLEY FINANCIAL INSTITUTION TREASURER 06/04/2017 Laboratory MARIANA HARLEY FINANCIAL INSTITUTION TREASURER 05/01/2017 Office visit MARIANA HARLEY FINANCIAL INSTITUTION TREASURER 04/24/2017 Hospital Alphonse Bender MD 04/23/2017 Hospital [place] Quiroz MD 12/24/2016 Office visit MARIANA HARLEY FINANCIAL INSTITUTION TREASURER 12/10/2016 Surgery Damion Perdomo MD 09/10/2016 Office visit Damion Perdomo MD 08/29/2016 Hospital Damion Perdomo MD 08/26/2016 Office visit Damion Perdomo MD 08/05/2016 Laboratory MARIANA HARLEY FINANCIAL INSTITUTION TREASURER 08/02/2016 Laboratory MARIANA HARLEY FINANCIAL INSTITUTION TREASURER 07/31/2016 Office visit MARIANA HARLEY FINANCIAL INSTITUTION TREASURER 12/22/2015 Office visit MARIANA HARLEY FINANCIAL INSTITUTION TREASURER 08/29/2015 Office visit Damion Perdomo MD 08/29/2015 Office visit MARIANA HARLEY FINANCIAL INSTITUTION TREASURER 03/15/2015 Office visit MARIANA HARLEY APRN
--- OUTSIDE RECORDS SUMMARY | 2019-04-08 10:19 | XMS REPORT ---
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 135640272 Problem Hypertension I10 Active 33813346 Problem Dyslipidemia E78.5 Active 357694475 Problem Renal carcinoma C64.9 Active 604291418 Problem Pulmonary emboli I26.99 Active 73849945 Problem Abnormal EKG R94.31 Active 107912726 Problem SVT (supraventricular tachycardia) I47.1 Active 2031281 ALLERGIES No Information ENCOUNTERS Encounter Location Date Diagnosis [facility] [address] [facility] [place], [place] [phone] Feb, [facility] [address] [address] Nov, [facility] [address] [place], [place] [phone] Nov, Hypertension I10 ; Dyslipidemia E78.5 ; Myocardial bridge Q24.5 and Pulmonary emboli I26.99 [facility] [address] [place], [place] [phone] May, Hypertension I10 ; Dyslipidemia E78.5 ; SVT (supraventricular tachycardia ) I47.1 ; Myocardial bridge Q24.5 and Pulmonary emboli I26.99 [facility] [address] [place] [phone] Jan, [facility] [address] [place] [phone] Nov, [facility] [address] [place] [phone] Nov, Hypertension I10 ; SVT (supraventricular tachycardia) I47.1 ; Pulmonary emboli I26.99 ; Renal carcinoma C64.9 ; Myocardial bridge Q24.5 and Dyslipidemia E78.5 [facility] [address] [place] [phone] Sep, IMMUNIZATIONS No Known Immunizations SOCIAL HISTORY Never Assessed REASON FOR VISIT cardiac clearance PLAN OF CARE VITAL SIGNS MEDICATIONS Unknown Medications RESULTS No Results PROCEDURES No Known procedures INSTRUCTIONS MEDICATIONS ADMINISTERED No Known Medications MEDICAL (GENERAL) HISTORY Type Description Date Medical History Abnormal EKG Medical History Supraventricular tachycardia (SVT) Medical History HC, negative 10-21-16 Medical History Hypertension Medical History Dyslipidemia Medical History Pulmonary emboli Medical History Myocardial bridge - mid LAD Medical History R-Renal mass Medical History Renal cell carcinoma Medical History Bursitis, recurrent Surgical History Heart catheterization Surgical History Inguinal hernia repair Surgical History Kidney removal, right
--- OUTSIDE RECORDS SUMMARY | 2019-04-08 10:19 | XMS REPORT ---
Author Author Damion Perdomo [facility] Address [address] [place], [place] [address] Care Team Providers Care Teletray Operator Name Role Phone Damion Perdomo PCP Unavailable [...] Abscess Of Trunk Aug 30 2015 8:49AM Payers Insurance Name Company Name Plan Name Plan Number Policy Number Policy Group Number Start Date [facility] [id number] Sunday, 2015 History of Encounters Visit Date Visit Type Provider 08/29/2015 Office visit Damion Perdomo MD 08/29/2015 Office visit MARIANA HARLEY APRN 03/15/2015 Office visit MARIANA HARLEY APRN
--- OUTSIDE RECORDS SUMMARY | 2019-04-08 10:19 | XMS REPORT ---
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 928116740 Problem Hypertension I10 Active 66195095 Problem Dyslipidemia E78.5 Active 678246776 Problem Renal carcinoma C64.9 Active 922853544 Problem Pulmonary emboli I26.99 Active 73876504 Problem Abnormal EKG R94.31 Active 761108037 Problem SVT (supraventricular tachycardia) I47.1 Active 8719900 ALLERGIES No Known Allergies ENCOUNTERS Encounter Location Date Diagnosis [facility] [address], [place] [phone] May [facility] [address] [place], [place] [phone] May Hypertension I10 ; Dyslipidemia E78.5 ; SVT (supraventricular tachycardia) I47.1 and Pulmonary emboli I26.99 [facility] [address] [place], [place] [phone] May Hypertension I10 [facility] [address], [place] [phone] May Hypertension I10 [facility] [address] [place], [place] [phone] Feb [facility] [address] [phone] Nov, [facility] [address] [place], [place] [phone] Nov Hypertension I10 ; Dyslipidemia E78.5 ; Myocardial bridge Q24.5 and Pulmonary emboli I26.99 [facility] [address], [place] [phone] May Hypertension I10 ; Dyslipidemia E78.5 ; SVT (supraventricular tachycardia) I47.1 ; Myocardial bridge Q24.5 and Pulmonary emboli I26.99 [facility] [address] [place], [place] [phone] Jan [facility] [address] [place] [phone] Nov [facility] [address] [place], [place] [phone] Nov Hypertension I10 ; SVT (supraventricular tachycardia) I47.1 ; Pulmonary emboli I26.99 ; Renal carcinoma C64.9 ; Myocardial bridge Q24.5 and Dyslipidemia E78.5 [facility] [place], [place] [phone] Sep IMMUNIZATIONS No Known Immunizations SOCIAL HISTORY Never Assessed REASON FOR VISIT ^ HF CD ECHO F/U 6 MO / Dx Myocardial bridge / HTN / DLD PLAN OF CARE Activity Details Follow Up 1 Year Reason: VITAL SIGNS Height 73 in 2018-06-18 Weight 205.6 lbs 2018-06-18 BMI 27.12 kg/m2 2018-06-18 Oximetry 98% % 2018-06-18 Heart Rate 62 /min 2018-06-18 Blood pressure systolic 118 mm Hg 2018-06-18 Blood pressure diastolic 62 mm Hg 2018-06-18 MEDICATIONS Medication Instructions Dosage Frequency Start Date End Date Duration Status Carafate 1 GM Orally four times a day 1 tablet 6h Active Tamsulosin HCl 0.4 MG Orally Once a day 1 capsule 24h Active Percocet 10-325 MG Orally every 6 hrs 1 tablet as needed 6h Active Omeprazole 40 MG Orally Once a day 1 capsule 24h Active Xarelto 10 MG Orally Once a day 1 tablet with food 24h Active Morphine Sulfate 15 MG Orally twice a day 1 tablet as needed 12h Active Calcium 600 MG Orally Twice a day 1 tablet with meals 12h Active Metoprolol Succinate ER 100 MG Orally Once a day in AM 1 tablet May, 90 days Active Docusate Sodium 100 MG Orally Twice a day 1 capsule as needed 12h Active Pravastatin Sodium 40 MG Orally Once a day 1 tablet 24h Active RESULTS No Results PROCEDURES No Known procedures INSTRUCTIONS MEDICATIONS ADMINISTERED No Known Medications MEDICAL (GENERAL) HISTORY Type Description Date Medical History Supraventricular tachycardia (SVT) Medical History Myocardial bridge - mid LAD Medical History Hypertension Medical History Dyslipidemia Medical History HC, negative 10-21-16 Medical History Abnormal EKG Medical History Pulmonary emboli Medical History R-Renal mass Medical History Renal cell carcinoma Medical History Bursitis, recurrent Surgical History Heart catheterization Surgical History Inguinal hernia repair Surgical History Kidney removal, right
--- OUTSIDE RECORDS SUMMARY | 2019-04-08 10:19 | XMS REPORT | Continuity of Care Document ---
Demographics Preferred Language Unknown Marital Status Unknown Confucianist Affiliation Unknown Race Unknown Ethnic Group Unknown Author Organization Unknown Address Unknown Allergies Active Description Code Type Severity Reaction Onset Reported/Identified Relationship to Patient Clinical Status Yes No Known Drug Allergies [id number] N/A N/A Medications There is no data. Problems Date Dx Coded Attending Type Code Diagnosis Diagnosed By 07/09/2017 P C641 Malignant neoplasm of right kidney, except renal pelvis 07/09/2017 S D509 Iron deficiency anemia, unspecified 07/09/2017 P C641 Malignant neoplasm of right kidney, except renal pelvis 07/09/2017 S D509 Iron deficiency anemia, unspecified 07/09/2017 P C641 Malignant neoplasm of right kidney, except renal pelvis 07/09/2017 S D509 Iron deficiency anemia, unspecified 07/30/2017 P C641 Malignant neoplasm of right kidney, except renal pelvis 07/30/2017 S D509 Iron deficiency anemia, unspecified 07/30/2017 P C641 Malignant neoplasm of right kidney, except renal pelvis 07/30/2017 S D509 Iron deficiency anemia, unspecified 07/30/2017 P C641 Malignant neoplasm of right kidney, except renal pelvis 07/30/2017 S D509 Iron deficiency anemia, unspecified 07/30/2017 P C641 Malignant neoplasm of right kidney, except renal pelvis 07/30/2017 S D509 Iron deficiency anemia, unspecified 08/06/2017 P C641 Malignant neoplasm of right kidney, except renal pelvis 08/06/2017 S D509 Iron deficiency anemia, unspecified 08/06/2017 P C641 Malignant neoplasm of right kidney, except renal pelvis 08/06/2017 S D509 Iron deficiency anemia, unspecified 08/06/2017 P C641 Malignant neoplasm of right kidney, except renal pelvis 08/06/2017 S D509 Iron deficiency anemia, unspecified 08/13/2017 P C641 Malignant neoplasm of right kidney, except renal pelvis 08/13/2017 S D509 Iron deficiency anemia, unspecified 08/13/2017 P C641 Malignant neoplasm of right kidney, except renal pelvis 08/13/2017 S D509 Iron deficiency anemia, unspecified 08/20/2017 P C641 Malignant neoplasm of right kidney, except renal pelvis 08/20/2017 S D509 Iron deficiency anemia, unspecified 08/20/2017 P C641 Malignant neoplasm of right kidney, except renal pelvis 08/20/2017 S D509 Iron deficiency anemia, unspecified 08/27/2017 P C641 Malignant neoplasm of right kidney, except renal pelvis 08/27/2017 S D509 Iron deficiency anemia, unspecified 08/27/2017 P C641 Malignant neoplasm of right kidney, except renal pelvis 08/27/2017 S D509 Iron deficiency anemia, unspecified 09/03/2017 P C641 Malignant neoplasm of right kidney, except renal pelvis 09/03/2017 S D509 Iron deficiency anemia, unspecified 09/03/2017 P C641 Malignant neoplasm of right kidney, except renal pelvis 09/03/2017 S D509 Iron deficiency anemia, unspecified 09/30/2017 P C641 Malignant neoplasm of right kidney, except renal pelvis 09/30/2017 S D509 Iron deficiency anemia, unspecified 09/30/2017 P C641 Malignant neoplasm of right kidney, except renal pelvis 09/30/2017 S D509 Iron deficiency anemia, unspecified 10/22/2017 P C641 Malignant neoplasm of right kidney, except renal pelvis 10/22/2017 S D509 Iron deficiency anemia, unspecified 10/22/2017 P C641 Malignant neoplasm of right kidney, except renal pelvis 10/22/2017 S D509 Iron deficiency anemia, unspecified 10/29/2017 P C641 Malignant neoplasm of right kidney, except renal pelvis 10/29/2017 S D509 Iron deficiency anemia, unspecified 10/29/2017 P C641 Malignant neoplasm of right kidney, except renal pelvis 10/29/2017 S D509 Iron deficiency anemia, unspecified 11/05/2017 P C641 Malignant neoplasm of right kidney, except renal pelvis 11/05/2017 S D509 Iron deficiency anemia, unspecified 11/05/2017 P C641 Malignant neoplasm of right kidney, except renal pelvis 11/05/2017 S D509 Iron deficiency anemia, unspecified 11/05/2017 P C641 Malignant neoplasm of right kidney, except renal pelvis 11/05/2017 S D509 Iron deficiency anemia, unspecified 11/12/2017 P C641 Malignant neoplasm of right kidney, except renal pelvis 11/12/2017 S D509 Iron deficiency anemia, unspecified 11/12/2017 P C641 Malignant neoplasm of right kidney, except renal pelvis 11/12/2017 S D509 Iron deficiency anemia, unspecified 11/19/2017 P C641 Malignant neoplasm of right kidney, except renal pelvis 11/19/2017 S D509 Iron deficiency anemia, unspecified 11/19/2017 P C641 Malignant neoplasm of right kidney, except renal pelvis 11/19/2017 S D509 Iron deficiency anemia, unspecified 11/19/2017 P C641 Malignant neoplasm of right kidney, except renal pelvis 11/19/2017 S D509 Iron deficiency anemia, unspecified 11/19/2017 P C641 Malignant neoplasm of right kidney, except renal pelvis 11/19/2017 S D509 Iron deficiency anemia, unspecified 11/19/2017 P C641 Malignant neoplasm of right kidney, except renal pelvis 11/19/2017 S D509 Iron deficiency anemia, unspecified 01/21/2018 P C641 Malignant neoplasm of right kidney, except renal pelvis 01/21/2018 S D508 Other iron deficiency anemias 01/21/2018 P C641 Malignant neoplasm of right kidney, except renal pelvis 01/21/2018 S D508 Other iron deficiency anemias 01/21/2018 P C641 Malignant neoplasm of right kidney, except renal pelvis 01/21/2018 S D508 Other iron deficiency anemias 02/17/2018 P C641 Malignant neoplasm of right kidney, except renal pelvis 02/17/2018 S D508 Other iron deficiency anemias 02/17/2018 P C641 Malignant neoplasm of right kidney, except renal pelvis 02/17/2018 S D508 Other iron deficiency anemias 04/15/2018 P C641 Malignant neoplasm of right kidney, except renal pelvis 04/15/2018 S D508 Other iron deficiency anemias 04/15/2018 P C641 Malignant neoplasm of right kidney, except renal pelvis 04/15/2018 S D508 Other iron deficiency anemias 07/29/2018 P C641 Malignant neoplasm of right kidney, except renal pelvis 07/29/2018 S D508 Other iron deficiency anemias 07/29/2018 P C641 Malignant neoplasm of right kidney, except renal pelvis 07/29/2018 S D508 Other iron deficiency anemias 08/26/2018 P C641 Malignant neoplasm of right kidney, except renal pelvis 08/26/2018 S D508 Other iron deficiency anemias 08/26/2018 P C641 Malignant neoplasm of right kidney, except renal pelvis 08/26/2018 S D508 Other iron deficiency anemias 11/18/2018 P C641 Malignant neoplasm of right kidney, except renal pelvis 11/18/2018 S D508 Other iron deficiency anemias 04/07/2019 P D508 Other iron deficiency anemias 04/07/2019 P D508 Other iron deficiency anemias Procedures There is no data. Results There is no data. Encounters ACCT No. Visit Date/Time Discharge Status Pt. Type Provider Facility Loc./Unit Complaint [id number] 03/30/2019 10:43:40 Document Registration [id number] 03/10/2019 09:44:42 Document Registration [id number] 02/17/2019 08:38:15 Document Registration [id number] 01/18/2019 15:49:56 Document Registration [id number] 12/16/2018 09:40:24 Document Registration [id number] 12/16/2018 09:39:03 Document Registration [id number] 10/23/2018 08:20:20 Document Registration [id number] 08/31/2018 09:22:00 Document Registration [id number] 06/24/2018 08:15:09 Document Registration [id number] 06/15/2018 09:37:35 Document Registration [id number] 02/18/2018 08:14:48 Document Registration [id number] 01/12/2018 15:53:00 Document Registration [id number] 01/07/2018 15:55:34 Document Registration [id number] 12/24/2017 10:00:26 Document Registration [id number] 11/20/2017 08:04:51 Document Registration [id number] 10/29/2017 15:58:12 Document Registration [id number] 10/15/2017 07:49:47 Document Registration [id number] 10/14/2017 13:23:27 Document Registration [id number] 10/06/2017 16:31:54 Document Registration [id number] 09/30/2017 10:57:01 Document Registration [id number] 09/04/2017 13:52:40 Document Registration [id number] 09/04/2017 07:51:31 Document Registration [id number] 09/03/2017 12:09:12 Document Registration [id number] 08/27/2017 10:45:23 Document Registration [id number] 08/13/2017 11:01:59 Document Registration [id number] 08/06/2017 12:05:28 Document Registration [id number] 07/30/2017 10:58:57 Document Registration [id number] 07/23/2017 11:16:37 Document Registration [id number] 07/16/2017 10:53:55 Document Registration [id number] 07/09/2017 11:51:48 Document Registration [id number] 07/09/2017 09:59:59 Document Registration [id number] 01/08/2017 13:32:01 01/08/2017 23:59:59 CLS Outpatient [facility] JENARO RAD RENAL CELL CA W/ METS TO SPINE [id number] 01/12/2019 16:20:36 01/12/2019 23:59:59 CLS Outpatient MARIANA HARLEY [id number] 12/21/2018 15:19:36 12/21/2018 23:59:59 KERI Outpatient MARIANA HARLEY [id number] 11/02/2018 10:50:17 11/02/2018 23:59:59 CLS Outpatient MARIANA HARLEY [id number] 01/19/2018 14:26:16 01/19/2018 23:59:59 CLS Outpatient Damion Perdomo [id number] 01/07/2018 16:16:50 01/07/2018 23:59:59 CLS Outpatient MARIANA HARLEY [id number] 12/10/2017 11:03:47 12/10/2017 23:59:59 CLS Outpatient Damion Perdomo [id number] 11/26/2017 15:54:19 11/26/2017 23:59:59 CLS Outpatient MARIANA HARLEY [id number] 11/19/2017 12:14:30 11/19/2017 23:59:59 CLS Outpatient Damion Perdomo [id number] 11/12/2017 11:00:41 11/12/2017 23:59:59 CLS Outpatient Damion Perdomo [id number] 10/29/2017 10:46:22 10/29/2017 23:59:59 CLS Outpatient Damion Perdomo [id number] 10/06/2017 11:57:20 10/06/2017 23:59:59 CLS Outpatient MARIANA HARLEY [id number] 09/08/2017 14:48:55 09/08/2017 23:59:59 CLS Outpatient MARIANA HARLEY [id number] 09/03/2017 14:04:46 09/03/2017 23:59:59 KERI Outpatient MARIANA HARLEY [id number] 08/11/2017 11:28:10 08/11/2017 23:59:59 CLS Outpatient MARIANA HARLEY [id number] 07/17/2017 16:57:40 07/17/2017 23:59:59 CLS Outpatient Indiana Quiroz [id number] 06/18/2017 10:57:11 06/18/2017 23:59:59 CLS Outpatient CRICKET MARIANA Lynch [id number] 06/04/2017 09:33:51 06/04/2017 23:59:59 CLS Outpatient MARIANA HARLEY [id number] 05/09/2017 15:48:04 05/09/2017 23:59:59 CLS Outpatient Tico Clark [id number] 05/01/2017 10:56:05 05/01/2017 23:59:59 CLS Outpatient CRICKETMARIANA [id number] 12/24/2016 14:40:36 12/24/2016 23:59:59 CLS Outpatient HARLEYMARIANA [id number] 12/16/2016 13:56:35 12/16/2016 23:59:59 CLS Outpatient Damion Perdomo [id number] 09/10/2016 15:36:51 09/10/2016 23:59:59 CLS Outpatient Damion Perdomo [id number] 09/04/2016 13:50:10 09/04/2016 23:59:59 CLS Outpatient Damion Perdomo [id number] 08/26/2016 15:42:08 08/26/2016 23:59:59 CLS Outpatient Damion Perdomo [id number] 08/05/2016 12:46:23 08/05/2016 23:59:59 CLS Outpatient MARIANA HARLEY [id number] 08/02/2016 09:06:01 08/02/2016 23:59:59 CLS Outpatient MARIANA HARLEY [id number] 12/22/2015 09:20:39 12/22/2015 23:59:59 CLS Outpatient MARIANA HARLEY [id number] 08/29/2015 14:47:26 08/29/2015 23:59:59 CLS Outpatient Leanne Damion [id number] 08/29/2015 10:19:42 08/29/2015 23:59:59 CLS Outpatient MARIANA HARLEY [id number] 03/15/2015 10:41:19 03/15/2015 23:59:59 CLS Outpatient MARIANA HARLEY
--- OUTSIDE RECORDS SUMMARY | 2019-04-08 10:19 | XMS REPORT ---
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 OTH Flulaval Quadrivalent [id number] Intramuscular Left Deltoid [...] Number Policy Group Number Start Date BCBS [facility] [id number] Saturday, 2017 [facility] [id number] Sunday, 2015 [employer] [id number] N/A History of Encounters Visit Date Visit Type Provider 12/10/2017 Office visit Damion Perdomo MD 11/26/2017 Office visit MARIANA HARLEY FLAT LOCK OPERATOR 11/19/2017 Office visit Damion Perdomo MD 11/12/2017 Procedures Damion Perdomo MD 10/29/2017 Procedures Damion Perdomo MD 10/06/2017 Office visit MARIANA HARLEY FLAT LOCK OPERATOR 09/08/2017 Office visit MARIANA HARLEY FLAT LOCK OPERATOR 09/03/2017 Office visit MARIANA HARLEY FLAT LOCK OPERATOR 08/11/2017 Office visit MARIANA HARLEY FLAT LOCK OPERATOR 06/18/2017 Laboratory MARIANA HARLEY FLAT LOCK OPERATOR 06/04/2017 Laboratory MARIANA HARLEY FLAT LOCK OPERATOR 05/01/2017 Office visit MARIANA HARLEY FLAT LOCK OPERATOR 04/24/2017 Hospital Alphonse Bender MD 04/23/2017 Hospital Indiana Quiroz MD 12/24/2016 Office visit MARIANA HARLEY FLAT LOCK OPERATOR 12/10/2016 Surgery Damion Perdomo MD 09/10/2016 Office visit Damion Perdomo MD 08/29/2016 Hospital Damion Perdomo MD 08/26/2016 Office visit Damion Perdomo MD 08/05/2016 Laboratory MARIANA HARLEY FLAT LOCK OPERATOR 08/02/2016 Laboratory MARIANA HARLEY FLAT LOCK OPERATOR 07/31/2016 Office visit MARIANA HARLEY FLAT LOCK OPERATOR 12/22/2015 Office visit MARIANA HARLEY FLAT LOCK OPERATOR 08/29/2015 Office visit Damion Perdomo MD 08/29/2015 Office visit MARIANA HARLEY FLAT LOCK OPERATOR 03/15/2015 Office visit MARIANA HARLEY APRN
--- OUTSIDE RECORDS SUMMARY | 2019-04-08 10:19 | XMS REPORT ---
Author Author Alvin Blankenship Organization [facility] Address [address] [place] [address] Care Team Providers Care Lacrosse Player Name Role Phone Alvin Blankenship Unavailable PROBLEMS Type Condition ICD9-CM Code [id number] Code Onset Dates Condition Status SNOMED Code Problem Abnormal EKG R94.31 Active 787067366 Assessment SVT (supraventricular tachycardia) I47.1 Nov, Active 7420979 Problem SVT (supraventricular tachycardia) I47.1 Active 7262034 Problem Renal carcinoma C64.9 Active 42353519 Problem Hypertension I10 Active 90723609 Problem Dyslipidemia E78.5 Active 543803660 Problem Pulmonary emboli I26.99 Active 20629395 Problem 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 Unknown Non Drug Allergy Nov, Unknown SOCIAL HISTORY No smoking Hx information available PLAN OF CARE VITAL SIGNS Height 73 in 2016-11-27 Weight 230.4 lbs 2016-11-27 BMI 30.39 kg/m2 2016-11-27 Oximetry 96 % 2016-11-27 Heart Rate 74 /min 2016-11-27 Blood pressure systolic 134 mm Hg 2016-11-27 Blood pressure diastolic 68 mm Hg 2016-11-27 MEDICATIONS Medication Instructions Dosage Frequency Start Date End Date Duration Status Aspirin 81 MG Orally Once a day 1 tablet 24h Active Metoprolol Tartrate 50 MG Orally Twice a day 1 tablet with food 12h Active Omeprazole 40 MG Orally Once a day 1 capsule 24h Active Docusate Sodium 100 MG Orally Twice a day 1 capsule as needed 12h Active Pravastatin Sodium 40 MG Orally Once a day 1 tablet 24h Active Xarelto 15 MG Active Lisinopril 40 MG Orally Once a day 1/2 tablet 24h Active RESULTS No Results PROCEDURES Procedure Date Ordered Related Diagnosis Body Site Office Visit, Est Pt., Level 4 Nov 27, 2016 IMMUNIZATIONS No Known Immunizations
--- OUTSIDE RECORDS SUMMARY | 2019-04-08 10:19 | XMS REPORT ---
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 Unknown Non Drug Allergy May, Unknown SOCIAL HISTORY No smoking Hx information available PLAN OF CARE Activity Details Follow Up 6 Months Reason:null VITAL SIGNS Height 73 in 2017-05-29 Weight 231.12 lbs 2017-05-29 BMI 30.49 kg/m2 2017-05-29 Oximetry 97 % 2017-05-29 Heart Rate 88 /min 2017-05-29 Blood pressure systolic 128 mm Hg 2017-05-29 Blood pressure diastolic 64 mm Hg 2017-05-29 MEDICATIONS Medication Instructions Dosage Frequency Start Date End Date Duration Status Metoprolol Tartrate 50 MG Orally Twice a day 1 tablet with food 12h Active Morphine Sulfate 15 MG Orally twice a day 1 tablet as needed 12h Active Docusate Sodium 100 MG Orally Twice a day 1 capsule as needed 12h Active Aspirin 81 MG Orally Once a day 1 tablet 24h Active Xarelto 15 MG Orally Once a day 1 tablet 24h Active Percocet 10-325 MG Orally every 6 hrs 1 tablet as needed 6h Active Calcium 600 MG Orally Twice a day 1 tablet with meals 12h Active Tamsulosin HCl 0.4 MG Orally Once a day 1 capsule 24h Active Metoprolol Succinate ER 50 MG Orally twice a day 1 tablet 12h Active Pravastatin Sodium 40 MG Orally Once a day 1 tablet 24h Active Nivolumab 40 MG/4ML Active Omeprazole 40 MG Orally Once a day 1 capsule 24h Active Lisinopril 40 MG Orally Once a day 1/2 tablet 24h Active Dexamethasone 2 MG Orally as directed 1 tablet Active Gabapentin 600 MG Orally Three times a day 1 tablet 8h Active RESULTS No Results PROCEDURES Procedure Date Ordered Related Diagnosis Body Site Office Visit, Est Pt., Level 4 May 29, 2017 IMMUNIZATIONS No Known Immunizations
[2019-04-08] MEDS ORDERED: GLYCOPYRROLATE 0.2 MG/ML (ROBINUL) 2 ML VIAL ONE (11:23)
[2019-04-08] MEDS ORDERED: NEOSTIGMINE 1 MG/ML 5 ML SYRINGE ONE (11:23)
[2019-04-08] MEDS ORDERED: D5 1/2 NS W/KCL 20 MEQ/L 1,000 ML IV SCH (11:37)
--- NOTE | 2019-04-08 11:37 | Progress Note-Post Operative ---
Post-Operative Progess Note Surgeon (s)/Military Science Instructor (s) Surgeon OSCAR ACOSTA MD Military Science Instructor n/a Pre-Operative Diagnosis Bilat Chroinc Sinusitis, DEviated Nasal Septum, Bialt Hyper of Inf turbs Post-Operative Diagnosis same Post-Op Procedure Note Date of Procedure: April 08, 2019 Name of Procedure Performed: Bilat ESs, Septo, Bialt REd of Inf Turbs Description & Findings Description and Findings: n/a Anesthesia Type get Estimated Blood Loss minimal Packing none. Specimen(s) collected/removed bilat sinus disease OSCAR ACOSTA MD April 08, 2019 11:36
[2019-04-08] MEDS ORDERED: ACETAMINOPHEN 325 MG TABLET PO PRN (11:45)
[2019-04-08] MEDS ORDERED: PROMETHAZINE INJ 25 MG/ML (PHENERGAN) AMP IVP PRN (11:45)
[2019-04-08] MEDS ORDERED: predniSONE 20 MG TAB PO ONE (11:45)
[2019-04-08] MEDS ORDERED: HYDR-3812 PO (11:55)
[2019-04-08] MEDS ORDERED: AMOX-355 PO (11:55)
[2019-04-08] MEDS ORDERED: ONDANSETRON 4 MG/2 ML (SDV) Z0FRAN IVP PRN (12:00)
[2019-04-08] MEDS ORDERED: morphine INJ 10 MG/ML 1ML (SYR OR VIAL) IVP ONE (12:00)
--- NOTE | 2019-04-08 13:40 | Anesthesia-General Post-Op ---
General Patient Condition Mental Status/LOC: Same as Preop Cardiovascular: Satisfactory Nausea/Vomiting: Absent Respiratory: Satisfactory Pain: Controlled Complications: Absent Post Op Complications Complications None Follow Up Care/Instructions Patient Instructions None needed. Anesthesia/Patient Condition Patient Condition Patient is doing well, no complaints, stable vital signs, no apparent adverse anesthesia problems. No complications reported per nursing. D/C home per [facility] Criteria: Yes MITZI CASTELLON CRNA April 08, 2019 13:39
[2019-04-08] MEDS: HYDROcodone/APAP 5 MG/325 MG (LORTAB) TAB PO PRN ×2 (14:10→14:30)
--- NOTE | 2019-04-08 15:18 | NUR ---
1410 - C/O SINUS PAIN. LORTAB 5 MG GIVEN PER ORDER. 2 TABS OFFERED. PT STATED HE ONLY WANTED TO TAKE ONE @ THIS TIME. 1430 - LORTAB 5 MG PO GIVEN, PAIN RATED @ 5. STATED PAIN WAS COMING DOWN BUT WANTED TO BE SURE PAIN WOULD BE CONTROLLED FOR ONE HOUR DRIVE HOME. Addendum: 04/08/19 at 1530 by ZARI LEDESMA RN Amended: Links added.
== END 2019-04-08 15:10 | disposition home or self-care (01) ==
LOC: SDC 07:34
PROVIDERS: ATTEND Otolaryngology Otolaryngology/Facial Plastic Surgery
DX: J32.0 Chronic maxillary sinusitis (principal); J32.2 Chronic ethmoidal sinusitis; J33.8 Other polyp of sinus; J34.2 Deviated nasal septum; J34.3 Hypertrophy of nasal turbinates; I10 Essential (primary) hypertension; C64.1 Malignant neoplasm of right kidney, except renal pelvis; Z90.5 Acquired absence of kidney; Z79.899 Other long term (current) drug therapy
CPT/HCPCS: 87081